=== PATIENT | male | born 1965 | race Caucasian/White ===

== ENCOUNTER 2016-12-11 19:35 | Observation (INO) | payer OTHER ==
[~2016-12-11] VITALS: Ht 182.9 cm; Wt 80.3 kg
[~2016-12-11 19:35] MED LIST: ASPI81CH CHEW; DOXE75CA2 PO; LANS30CA PO; METO25TA3 PO; PLAV75TA29 PO; ROSU1TAB8 PO; TRIA37.5 PO
[2016-12-11 20:12] VITALS: BP 131/95; PULSE 83; RESP 18; TEMP 98.7; O2SAT 96
[2016-12-11 20:36] VITALS: BP 110/91; PULSE 83; RESP 18; TEMP 98.7; O2SAT 95
[2016-12-11] MEDS ORDERED: DIAZ10TA PO (20:47)
[2016-12-11] MEDS ORDERED: ASPIRIN 81 MG CHEW TAB PO ONE (21:30)
[2016-12-11] MEDS ORDERED: SODIUM CHLORIDE 0.9% FLUSH 5 ML FLUSH IVF PRN ×3 (21:30→23:30)
--- NOTE | 2016-12-11 21:30 | PD ---
HPI Chief Complaint: Cardiac Complaint Time Seen by Provider: 21:21 Travel History International Travel<30 days: No Contact w/Intl Traveler<30days: No Traveled to known affect area: No History of Present Illness HPI 51 year-old male presents to the emergency department by private transportation in the care of his spouse for evaluation of chest pain intermittent in nature and intermittent dizziness as well as cough productive of clear to white phlegm. Patient is also noted episodes of rapid heart rate. Patient is presently in the process of being evaluated for intermittent tachycardia. Patient recently underwent EPS study and was not identified to have a tachyarrhythmia at that time and did not undergo ablation. Patient subsequently just finished a 30 day Holter monitor and on Thursday turned in his device and does not know the results of that study. Patient notified his cremator that he was having episodes of rapid heartbeat and was encouraged to come to the emergency room for evaluation. Patient has history of hypertension dyslipidemia previous pneumonia peripheral artery disease with femoral bypass to the right lower extremity 6 years ago and prior tobacco use which she discontinued 5 years ago. Patient has family history of cardiac disease with mother passing away in her 60s from myocardial infarction. Patient denies any pleuritic pain. No hemoptysis. No new swelling of the lower extremities. No lower extremity pain or claudication. Patient denies any abdominal pain. Patient does not report any referred neck jaw back shoulder arm or abdominal pain with episodes of chest pain. Chest pain episodes are seconds in duration and sharp in nature. Patient denies any chest pain at this time. Patient does take Plavix and aspirin daily. Patient denies diabetes. Patient reportedly underwent stress testing January 2016 and was told no acute abnormalities but evidence of previous remote infarct were noted at that time. states that he has had temperature elevation of 99.5 and is concerned that he may have pneumonia. Reportedly at home O2 saturations have been 90-96%. PFSH Past Medical History Narrative Medical COPD tachycardia dyslipidemia hypertension anxiety GERD pneumonia right femoropopliteal bypass EPS study; no tobacco use; nursing notes reviewed Hx Anticoagulant Therapy: Yes Anxiety: Yes Heart Rhythm Problems: Yes Cancer: No Cardiovascular Problems: Yes High Cholesterol: Yes Chest Pain: No COPD: Yes Diabetes: No Diminished Hearing: No Gastrointestinal Disorders: No GERD: Yes Glaucoma: No Hepatitis: No Hiatal Hernia: No Hypertension: Yes Respiratory: Yes Integumentary: No Thyroid Disease: No Tetanus Vaccination: < 5 Years Influenza Vaccination: Yes Past Surgical History Other Surgery: Yes (RT FEMEROL POPITEAL- AND FOR BLOCKAGE) Social History Alcohol Use: No Tobacco Use: No (QUIT 4 YRS AGO SMOKED 1 PPD FOR 20+ YRS) Substance Use: No Allergies-Medications (Allergen,Severity, Reaction): Coded Allergies: No Known Allergies (Unverified , 12/11/16) Reported Meds & Prescriptions Reported Meds & Active Scripts Active Reported Diazepam 10 Mg Tab 10 Mg PO HS PRN Metoprolol Tartrate 25 Mg Tab 12.5 Mg PO DAILY Aspirin 81 Mg Chew 81 Mg CHEW DAILY Rosuvastatin (Rosuvastatin Calcium) 20 Mg Tab 20 Mg PO DAILY Lansoprazole 30 Mg Capdr 30 Mg PO DAILY Triamterene-Hydrochlorothiazide 37.5-25 Mg Tab 1 Tab PO DAILY Plavix (Clopidogrel Bisulfate) 75 Mg Tab 75 Mg PO DAILY Doxepin (Doxepin HCl) 75 Mg Cap 75 Mg PO DAILY Review of Systems Except as stated in HPI: all other systems reviewed are Neg General / Constitutional: Positive: Fever (subjective), No: Chills Eyes: No: Visual changes HENT: No: Congestion Cardiovascular: Positive: Chest Pain or Discomfort (intermittent sharp seconds induration), Tachycardia, No: Diaphoresis, Syncope, Dyspnea on exertion, Edema Respiratory: Positive: Cough, No: Shortness of Breath, Wheezing Gastrointestinal: No: Vomiting, Abdominal Pain Genitourinary: No: Flank Pain Musculoskeletal: No: Myalgias, Arthralgias Skin: No Rash Neurologic: No: Weakness Psychiatric: Positive: Anxiety Hematologic/Lymphatic: No: Easy Bruising Physical Exam Narrative GENERAL: Well-developed well-nourished male in no acute distress no respiratory distress SKIN: Warm and dry. HEAD: Normocephalic. EYES: No scleral icterus. No injection or drainage. NECK: Supple, trachea midline. No JVD or lymphadenopathy. CARDIOVASCULAR: Regular rate and rhythm without murmurs, gallops, or rubs. RESPIRATORY: Breath sounds equal bilaterally. No accessory muscle use. GASTROINTESTINAL: Abdomen soft, non-tender, nondistended. MUSCULOSKELETAL: No cyanosis, or edema. BACK: Nontender without obvious deformity. No CVA tenderness. Data Data Last Documented VS Vital Signs Date Time Temp Pulse Resp B/P Pulse Ox O2 Delivery O2 Flow Rate FiO2 12/11/16 23:06 76 18 115/86 97 Room Air 12/11/16 20:36 98.7 Orders Electrocardiogram (12/11/16 21:21) Basic Metabolic Panel (Bmp) (12/11/16 21:21) B-Type Natriuretic Peptide (12/11/16 21:21) Ckmb (Isoenzyme) Profile (12/11/16 21:21) Complete Blood Count With Diff (12/11/16 21:21) Magnesium (Mg) (12/11/16 21:21) Prothrombin Time / Inr (Pt) (12/11/16 21:21) Act Partial Throm Time (Ptt) (12/11/16 21:21) Troponin I (12/11/16 21:21) Chest, Single Ap (12/11/16 21:21) Ecg Monitoring (12/11/16 21:21) Bilateral Bp Monitoring (12/11/16 21:21) Iv Access Insert/Monitor (12/11/16 21:21) Oximetry (12/11/16 21:21) Oxygen Administration (12/11/16 21:21) Aspirin Chew (Aspirin Chew) (12/11/16 21:30) Sodium Chloride 0.9% Flush (Ns Flush) (12/11/16 21:30) Potassium Chloride (Kcl) (12/11/16 22:15) Potassium Chlor 10 Meq Premix (Kcl 10 Me (12/11/16 22:15) D-Dimer (12/11/16 22:03) CKMB (12/11/16 20:55) CKMB% (12/11/16 20:55) Admit Order (Ed Use Only) (12/11/16 ) ^ Saline Lock (12/11/16 23:17) Resp Oxygen Amadou C Titrat 1-4 L (12/11/16 ) ^ Notify Dr: Other (12/11/16:17) Sodium Chloride 0.9% Flush (Ns Flush) (12/12/16 09:00) Sodium Chloride 0.9% Flush (Ns Flush) (12/11/16 23:30) Activity Bed Rest With Brp (12/11/16:17) Vital Signs (Adult) Q4H (12/11/16:17) Cardiac Rhythm .As Directed (12/11/16 23:17) ^ Notify Dr: Other .PRN (12/11/16 23:17) ^ Notify Dr. Parameters (12/11/16 23:17) Resp Oxygen Nasal Cannula (12/11/16 ) Ckmb (Isoenzyme) Profile (12/11/16 23:55) Ckmb (Isoenzyme) Profile (12/12/16 02:55) Troponin I (12/11/16 23:55) Troponin I (12/12/16 02:55) Electrocardiogram (12/11/16 23:55) Electrocardiogram (12/12/16 02:55) ^ Obtain (12/11/16 23:17) Sodium Chloride 0.9% Flush (Ns Flush) (12/11/16 23:30) Sodium Chloride 0.9% Flush (Ns Flush) (12/12/16 09:00) Acetaminophen (Tylenol) (12/11/16 23:30) Ondansetron Inj (Zofran Inj) (12/11/16 23:30) Nitroglycerin Sl (Nitrostat Sl) (12/11/16 23:30) Aspirin (Aspirin) (12/12/16 09:00) Alprazolam (Xanax) (12/11/16 23:30) Material Flow Analyst / Telemetry SCAR.Q8H (12/11/16:17) Basic Metabolic Panel (Bmp) (12/12/16 03:55) Labs Laboratory Tests Test 12/11/16 20:55 White Blood Count 8.8 TH/MM3 Red Blood Count 5.39 MIL/MM3 Hemoglobin 16.9 GM/DL Hematocrit 49.2 % Mean Corpuscular Volume 91.2 FL Mean Corpuscular Hemoglobin 31.4 PG Mean Corpuscular Hemoglobin 34.4 % Concent Red Cell Distribution Width 14.9 % Platelet Count 322 TH/MM3 Mean Platelet Volume 8.6 FL Neutrophils (%) (Auto) 66.6 % Lymphocytes (%) (Auto) 24.3 % Monocytes (%) (Auto) 7.3 % Eosinophils (%) (Auto) 1.2 % Basophils (%) (Auto) 0.6 % Neutrophils # (Auto) 5.9 TH/MM3 Lymphocytes # (Auto) 2.1 TH/MM3 Monocytes # (Auto) 0.6 TH/MM3 Eosinophils # (Auto) 0.1 TH/MM3 Basophils # (Auto) 0.1 TH/MM3 CBC Comment DIFF FINAL Differential Comment Prothrombin Time 10.6 SEC Prothromb Time International 1.0 RATIO Ratio Activated Partial 28.7 SEC Thromboplast Time D-Dimer Quantitative (PE/DVT) 0.34 MG/L FEU Sodium Level 139 MEQ/L Potassium Level 2.8 MEQ/L Chloride Level 98 MEQ/L Carbon Dioxide Level 30.2 MEQ/L Anion Gap 11 MEQ/L Blood Urea Nitrogen 21 MG/DL Creatinine 1.30 MG/DL Estimat Glomerular Filtration 58 ML/MIN Rate Random Glucose 99 MG/DL Calcium Level 9.1 MG/DL Magnesium Level 2.2 MG/DL Total Creatine Kinase 118 U/L Creatine Kinase MB 0.7 NG/ML Troponin I LESS THAN 0.02 NG/ML B-Type Natriuretic Peptide 3 PG/ML MDM Medical Decision Making Medical Screen Exam Complete: Yes Emergency Medical Condition: Yes Medical Record Reviewed: Yes Interpretation(s) Last Impressions Chest X-Ray 12/11/162120 Signed Impressions: Service Date/Time: December 21:35 - CONCLUSION: No evidence of acute cardiopulmonary disease. Wilmar Lou MD Vital Signs Date Time Temp Pulse Resp B/P Pulse Ox O2 Delivery O2 Flow Rate FiO2 12/11/16 21:44 84 18 125/82 95 Room Air 12/11/16 21:42 84 117/86 125/82 12/11/16 20:39 83 18 95 Room Air 12/11/16 20:36 98.7 83 18 110/91 95 12/11/16 20:12 98.7 83 18 131/95 96 CBC & BMP Diagram 12/11/16 20:55 Differential Diagnosis Chest pain, ACS, myocardial infarction, arrhythmia, electrolyte disturbance, pneumonia, PE Narrative Course Patient asymptomatic at this time placed on quality assurance monitor chassis IV access obtained specimens collected and sent for resulting presumptive aspirin 162 mg administered Critical Care Narrative Aggregate critical care time was 35 minutes. Time to perform other separately billable procedures was not included in the critical care time. My time did not include minutes spent treating any other patients simultaneously or on activities that did not directly contribute to the patient's treatment. The services I provided to this patient were to treat and/or prevent clinically significant deterioration that could result in: Arrhythmia, myocardial infarction, I provided critical care services requiring my management, as noted below: Chart data review, documentation time, medication orders and management, vital sign assessments/reviewing monitor data, ordering and reviewing lab tests, ordering and interpreting/reviewing x-rays and diagnostic studies, care of the patient and discussion of the patient with the admitting physicians. 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
[2016-12-11 21:42] VITALS: BP_SYST 117; BP_SYST 125; BP_DIAS 82; BP_DIAS 86; PULSE 84
[2016-12-11 21:42] LABS: AUTOMATED NEUTROPHIL # 5.9 TH/MM3 (1.8-7.7); BASOPHIL # 0.1 TH/MM3 (0-0.2); BASOPHIL % 0.6 % (0.0-2.0); EOSINOPHIL # 0.1 TH/MM3 (0-0.4); EOSINOPHIL % 1.2 % (0.0-4.0); HEMATOCRIT 49.2 % (39.0-51.0); HEMO FLAGS DIFF FINAL; LYMPH % 24.3 % (9.0-44.0); LYMPHOCYTE # 2.1 TH/MM3 (1.0-4.8); MEAN CELL VOLUME 91.2 FL (80.0-100.0); MEAN CORPUSCULAR HEMOGLOBIN 31.4 PG (27.0-34.0); MEAN CORPUSCULAR HGB CONC 34.4 % (32.0-36.0); MONO % 7.3 % (0.0-8.0); NEUT % 66.6 % (16.0-70.0); PLATELET COUNT 322 TH/MM3 (150-450); RED BLOOD COUNT 5.39 MIL/MM3 (4.50-5.90); RED CELL DISTRIBUTION WIDTH 14.9 % (11.6-17.2); WHITE BLOOD COUNT 8.8 TH/MM3 (4.0-11.0)
[2016-12-11 21:44] VITALS: BP 125/82; PULSE 84; RESP 18; O2SAT 95
--- NOTE | 2016-12-11 21:44 | RADHPO ---
EXAM DATE/TIME: 12/11/2016 21:35 [facility] COMPARISON: No previous studies available for comparison. INDICATIONS : Dizziness and shortness of breath today. MEDICAL HISTORY : Hypertension. Chronic obstructive pulmonary disease. SURGICAL HISTORY : None. ENCOUNTER: Initial ACUITY: 1 day PAIN SCORE: 0/10 LOCATION: Bilateral chest FINDINGS: A single view of the chest demonstrates the lungs to be symmetrically aerated without evidence of mas s, infiltrate or effusion. The cardiomediastinal contours are unremarkable. Osseous structures are intact. CONCLUSION: No evidence of acute cardiopulmonary disease. Wilmar Lou MD on December 11, 2016 at 21:42 Board Certified Radiologist. This report was verified electronically.
[2016-12-11 21:56] LABS: APTT (PATIENT) 28.7 SEC (24.3-30.1); PROTHROMBIN TIME - PATIENT 10.6 SEC (9.8-11.6)
[2016-12-11 21:58] LABS: ANION GAP 11 MEQ/L (5-15); BICARBONATE 30.2 MEQ/L (21.0-32.0); BLOOD UREA NITROGEN 21 MG/DL (7-18); CHLORIDE 98 MEQ/L (98-107); GLOMERULAR FILTRATION RATE 58 ML/MIN (>89); MAGNESIUM 2.2 MG/DL (1.5-2.5); SODIUM (NA) 139 MEQ/L (136-145)
[2016-12-11 22:03] LABS: POTASSIUM 2.8 MEQ/L (3.5-5.1)
[2016-12-11] MEDS ORDERED: POTASSIUM CHLORIDE 20 MEQ CONTROLLED RELEASE TAB PO ONE (22:15)
[2016-12-11] MEDS: POTASSIUM CHLOR 10 MEQ PREMIX 100 ML IV SCH (22:20)
[2016-12-11 22:27] LABS: CREATINE KINASE 118 U/L (39-308)
[2016-12-11 22:47] LABS: CKMB 0.7 NG/ML (0.5-3.6)
[2016-12-11 23:06] VITALS: BP 115/86; PULSE 76; RESP 18; O2SAT 97
[2016-12-11 23:30] VITALS: O2SAT 95
[2016-12-11] MEDS ORDERED: ACETAMINOPHEN 500 MG CPLT PO PRN (23:30)
[2016-12-11] MEDS ORDERED: ONDANSETRON HCL 4 MG/2 ML VIAL IV PRN (23:30)
[2016-12-11] MEDS ORDERED: NITROGLYCERIN 0.4 MG SL 25 TABS/BTL SL PRN (23:30)
[2016-12-11] MEDS ORDERED: ALPRAZolam 0.25 MG TAB PO PRN (23:30)
[2016-12-12] MEDS: POTASSIUM CHLOR 10 MEQ PREMIX 100 ML IV SCH ×2 (00:23→02:17)
[2016-12-12 01:12] LABS: CREATINE KINASE 92 U/L (39-308)
[2016-12-12 01:23] VITALS: BP 118/84; PULSE 77; RESP 18; O2SAT 97
[2016-12-12 02:59] VITALS: BP 115/77; PULSE 74; RESP 18; O2SAT 97
[2016-12-12 04:14] VITALS: BP 91/57; PULSE 77; RESP 18; O2SAT 97
[2016-12-12 04:19] LABS: CHLORIDE 102 MEQ/L (98-107); POTASSIUM 3.5 MEQ/L (3.5-5.1); SODIUM (NA) 139 MEQ/L (136-145)
[2016-12-12 04:22] LABS: ANION GAP 8 MEQ/L (5-15); BICARBONATE 29.1 MEQ/L (21.0-32.0); BLOOD UREA NITROGEN 18 MG/DL (7-18)
[2016-12-12 04:25] LABS: GLOMERULAR FILTRATION RATE 70 ML/MIN (>89)
[2016-12-12 04:50] LABS: CREATINE KINASE 97 U/L (39-308)
[2016-12-12 07:28] VITALS: O2SAT 98
[2016-12-12 07:35] VITALS: BP 119/67; PULSE 80; RESP 14; O2SAT 96
--- NOTE | 2016-12-12 08:54 | HHI.HP ---
[facility] Service [facility] Primary Care Physician Dami Price Admission Diagnosis chest pain; hypokalemia Diagnoses: (1) Tachycardia Diagnosis: Principal (2) Heart palpitations Diagnosis: Principal (3) Hypokalemia Diagnosis: Principal (4) Atypical chest pain Diagnosis: Principal Chief Complaint: elevated HR Travel History International Travel<30 Days: No Contact w/Intl Traveler <30 Da: No Traveled to Known Affected Are: No History of Present Illness 51-year-old male with history of tachycardia, hyperlipidemia, hypertension, PAD, COPD, 3 episodes of pneumonia in the past, GERD, and remote history of tobacco use is admitted chest pain center although the patient's primary complaint is elevated heart rate. The patient states the day before yesterday he was laying down after work and his heart rate went up to 130. He states he had a headache and felt little foggy and disoriented. He states he waited it out and his heart rate decreased to 120 and he took his metoprolol. He states yesterday he again had erratic pulses and his heart rate went into the 130s. He states he felt dizzy and was diaphoretic. He states the tachycardia lasted a few hours and he again took his metoprolol yesterday. He does state he had a few seconds of a little sharp pain over his left anterior chest during the episode of tachycardia/palpitations. Denies any radiation of pain to the neck/jaw/arms/back. He denies any associated numbness or tingling, abdominal pain, nausea, or vomiting. He denies having felt short of breath. Patient admits to a little shortness of breath when he is at work but states he has COPD. Denies any chest pain on exertion. Denies any orthopnea. The patient sees Dr. Dao, stock handler floorperson. He had a 24-hour Holter in September 2016 with 4 episodes of heart rate in the 150s per the patient. On 10/02/16 he underwent an EP study which was negative for any supra and ventricular and nonsustained ventricular tachyarrhythmias. The patient recently had a 30 day Holter placed and he just shipped it back on Thursday of this week prior to these episodes of tachycardia. He states he had 2 episodes of palpitations during that 30 day period. The patient additionally states that 3 days ago he started to get sick with a runny nose, nasal congestion, and cough. He states he has been producing clear mucus with his cough and states he was "vomiting" watery mucus, but it does not seem that he was actually vomiting stomach contents. He denies any diarrhea. He was found to be hypokalemic in the ED but states he has been taking potassium supplementation [id number] for the past 2 weeks. Patient has chronic swelling in the right leg due to previous femoropopliteal bypass. Review of Systems Constitutional: COMPLAINS OF: Diaphoretic episodes, Dizziness Eyes: DENIES: Blurred vision Ears, nose, mouth, throat: COMPLAINS OF: Running Nose Respiratory: COMPLAINS OF: Cough, DENIES: Shortness of breath Cardiovascular: COMPLAINS OF: Chest pain, Lower Extremity Edema (chronic), DENIES: Orthopnea Gastrointestinal: COMPLAINS OF: Vomiting (questionable), Anorexia, DENIES: Abdominal pain, Diarrhea, Nausea Genitourinary: DENIES: Dysuria Musculoskeletal: DENIES: Back pain, Neck pain Integumentary: DENIES: Rash Neurologic: COMPLAINS OF: Headache, DENIES: Paresthesias Past Family Social History Past Medical History Tachycardia Hyperlipidemia Hypertension Peripheral arterial disease COPD GERD 3 episodes of pneumonia Sleep apnea septal deviation Past Surgical History Right femoral-popliteal bypass 6 years ago. Reported Medications Diazepam 10 Mg Tab 10 Mg PO HS PRN Metoprolol Tartrate 25 Mg Tab 12.5 Mg PO TID Aspirin 81 Mg Chew 81 Mg CHEW DAILY Rosuvastatin (Rosuvastatin Calcium) 20 Mg Tab 20 Mg PO DAILY Lansoprazole 30 Mg Capdr 30 Mg PO DAILY Triamterene-Hydrochlorothiazide 37.5-25 Mg Tab 1 Tab PO DAILY Plavix (Clopidogrel Bisulfate) 75 Mg Tab 75 Mg PO DAILY Doxepin (Doxepin HCl) 75 Mg Cap 75 Mg PO DAILY Allergies: Coded Allergies: No Known Allergies (Unverified , 12/11/16) Family History Mother: of [place] at age 67. Father: Hyperlipidemia, still living. Brother: Schizophrenia. No history of heart disease. Social History Patient states he quit drinking alcohol 2 years ago. Prior to this he would drink 1-2 beers daily after work. Patient quit smoking cigarettes 6-7 years ago. Prior to this he smoked one pack per day for approximately 20 years. Denies any history of illicit drug use. Physical Exam Vital Signs Vital Signs Date Time Temp Pulse Resp B/P Pulse Ox O2 Delivery O2 Flow Rate FiO2 12/12/16 07:35 80 14 119/67 96 Room Air 12/12/16 07:28 98 21 12/12/16 04:14 77 18 91/57 97 Room Air 12/12/16 02:59 74 18 115/77 97 Room Air 12/12/16 01:23 77 18 118/84 97 Room Air 12/11/16 23:30 95 21 12/11/16 23:06 76 18 115/86 97 Room Air 12/11/16 21:44 84 18 125/82 95 Room Air 12/11/16 21:42 84 117/86 125/82 12/11/16 20:39 83 18 95 Room Air 12/11/16 20:36 98.7 83 18 110/91 95 12/11/16 20:12 98.7 83 18 131/95 96 Physical Exam GENERAL: This is a well-nourished, well-developed patient, in no apparent distress. SKIN: No rashes, ecchymoses or lesions. Warm and dry. HEAD: Atraumatic. Normocephalic. EYES: No scleral icterus. No injection or drainage. ENT: There is an abnormality of the septum to the right. Nonerythematous pharynx with no exudates or swelling. Airway patent. NECK: Trachea midline. No carotid bruits bilaterally. CARDIOVASCULAR: Normal rate and regular rhythm without murmurs, gallops, or rubs. RESPIRATORY: Clear to auscultation. Breath sounds equal bilaterally. No wheezes , rales, or rhonchi. GASTROINTESTINAL: Normoactive bowel sounds. Abdomen soft, non-tender, nondistended. No guarding. MUSCULOSKELETAL: No lower extremity edema bilaterally. NEUROLOGICAL: Awake and alert. Motor grossly within normal limits. Normal speech. Laboratory Laboratory Tests Test 12/11/16 12/12/16 12/12/16 20:55 00:37 03:55 White Blood Count 8.8 Red Blood Count 5.39 Hemoglobin 16.9 Hematocrit 49.2 Mean Corpuscular Volume 91.2 Mean Corpuscular Hemoglobin 31.4 Mean Corpuscular Hemoglobin 34.4 Concent Red Cell Distribution Width 14.9 Platelet Count 322 Mean Platelet Volume 8.6 Neutrophils (%) (Auto) 66.6 Lymphocytes (%) (Auto) 24.3 Monocytes (%) (Auto) 7.3 Eosinophils (%) (Auto) 1.2 Basophils (%) (Auto) 0.6 Neutrophils # (Auto) 5.9 Lymphocytes # (Auto) 2.1 Monocytes # (Auto) 0.6 Eosinophils # (Auto) 0.1 Basophils # (Auto) 0.1 CBC Comment DIFF FINAL Differential Comment Prothrombin Time 10.6 Prothromb Time International 1.0 Ratio Activated Partial 28.7 Thromboplast Time D-Dimer Quantitative (PE/DVT) 0.34 Sodium Level 139 139 Potassium Level 2.8 3.5 Chloride Level 98 102 Carbon Dioxide Level 30.2 29.1 Anion Gap 11 8 Blood Urea Nitrogen 21 18 Creatinine 1.30 1.10 Estimat Glomerular Filtration 58 70 Rate Random Glucose 99 91 Calcium Level 9.1 8.4 Magnesium Level 2.2 Total Creatine Kinase 118 92 97 Creatine Kinase MB 0.7 Troponin I LESS THAN 0.02 LESS THAN 0.02 LESS THAN 0.02 B-Type Natriuretic Peptide 3 Result Diagram: 12/11/16205412/12/16354 Imaging Last Impressions Chest X-Ray 12/11/162120 Signed Impressions: Service Date/Time: December 21:35 - CONCLUSION: No evidence of acute cardiopulmonary disease. Wilmar Lou MD Assessment and Plan Assessment and Plan 51-year-old male with: Tachycardia/palpitations: History of tachycardia with negative EP study in September. Sees Dr. Dao. The patient had episodes of tachycardia yesterday and the day prior lasting hours yesterday. He takes metoprolol 12.5 mg 3 times a day and took this at home. EKGs 3 personally interpreted with normal sinus rhythm. There is a partial right bundle branch block and some nonspecific T- wave inversion in aVL and the septal leads. EKG from 10/02/16 was personally interpreted and T-wave appears upright in aVL and flat in V2. Cardiac exam is normal. Likely attributed to hypokalemia. -Continue to monitor patient on telemetry. -Patient just completed a 30 day Holter but does not have the results although did have 2 episodes of palpitations during that period of time. -I put a call out to Dr. Dao although he is unavailable so covering stock handler floorperson was called, awaiting call back. If the patient requires any workup outside of chest pain center he will need to be transferred to [facility] -Continue metoprolol Hypokalemia: K+2.8-->3.5 after 40 mEq po KCl and 30 mEq IV KCl. Could be due to poor by mouth intake recently. Mg normal. -Monitor and replete as needed -Repeat BMP with K+ 3.5. Order another 40 mEq po KCl. Atypical chest pain: A few seconds of sharp left-sided chest pain during the episode of tachycardia. EKGs as above. Troponin 3 less than 0.02. Chest x- ray personally interpreted without acute disease. -Continue patient's daily 81 mg aspirin -Monitor telemetry -Nitro prn chest pain -Discussed with Dr. Bay. No need for stress test at this time HTN: BP stable. -Continue triamterene-hydrochlorothiazide as should not cause hypokalemia. HLD: Continue statin PAD: Continue Plavix GERD: Continue PPI. DVT prevention: TEDs/SCDs Update 1245: Cardiology was contacted several times over the past few hours without response. Nurse tells me that the is concerned because the patient has not eaten in the past couple of days. He did tell me earlier that he has had little appetite. Repeat BMP and mag now. Start maintenance IV normal saline at 84 mL per hour as patient is NPO. Update 1435: Still have not spoken with cardiology. I discussed this with Dr. Bay. We do not believe the patient needs a stress test. Patient will be transferred out of chest pain center. Heart healthy diet started. I have called Dr. Snider to sign out patient. Update 1515: I spoke with DrMagen Patel, [facility], about transferring care but he would like me to speak with the stock handler floorperson as the patient may be able to be discharged and not remain hospitalized. He has called the cardiology office. Update 1525: Jessica called me back and then I spoke with Lea at cards office informing her that we have been trying to reach stock handler floorperson all day. She will have Dr. Vicente call me. Update: Never heard back from cardiology. Dr. Patel to take over care of patient. Cardiology consult placed. Discussed Condition With Olga Lidia Jeff Dec 12, 2016 08:54 Ana Bay MD Dec 12, 2016 16:51
[2016-12-12] MEDS ORDERED: SODIUM CHLORIDE 0.9% FLUSH 5 ML FLUSH IVF SCH ×2 (09:00)
[2016-12-12] MEDS ORDERED: ASPIRIN 325 MG TAB PO SCH (09:00)
[2016-12-12] MEDS ORDERED: ASPIRIN 81 MG CHEW TAB CHEW SCH (10:00)
[2016-12-12] MEDS ORDERED: DOXEPIN HCL 25 MG CAP PO SCH (10:00)
[2016-12-12] MEDS ORDERED: CLOPIDOGREL 75 MG TAB PO SCH (10:00)
[2016-12-12] MEDS ORDERED: ATORVASTATIN 40 MG TAB PO SCH (10:00)
[2016-12-12] MEDS ORDERED: PANTOPRAZOLE SOD 40 MG DELAYED RELEASE TAB PO SCH (10:00)
[2016-12-12] MEDS ORDERED: METO25TA3 PO (12:36)
[2016-12-12] MEDS ORDERED: SODIUM CHLOR 0.9% 1000 ML INJ 1,000 ML IV SCH (12:45)
[2016-12-12 13:48] LABS: POTASSIUM 3.5 MEQ/L (3.5-5.1)
[2016-12-12 13:51] LABS: BICARBONATE 27.3 MEQ/L (21.0-32.0); MAGNESIUM 2.2 MG/DL (1.5-2.5)
[2016-12-12] MEDS ORDERED: POTASSIUM CHLORIDE 10 MEQ CAP PO ONE (15:45)
[2016-12-12] MEDS ORDERED: DIAZEPAM 10 MG TAB PO PRN (16:45)
[2016-12-12 17:22] VITALS: PULSE 88
--- NOTE | 2016-12-12 17:26 | HHI.PR ---
Subjective Remarks Assumed care of this patient who had been admitted to chest pain center yesterday. I have reviewed his admission H&P as well as his medical history. His cardiac enzymes and EKGs were unrevealing. And on further interview of the patient and he did not really have chest pain, it was more of palpitations with the sharp discomfort that lasted only a few seconds. He has history of palpitations and apparent SVT. He was noted to be somewhat hypokalemic on admission and apparently has had some trouble with hypokalemia as an outpatient before. He been taking some [id number]-xqloyip supplemental potassium which amounted to approximately 4 mEq per day which he self prescribed. He notes that he works outside quite often in a very physical job and has no exertional chest pain. He does have some mild underlying dyspnea which is associated with COPD. His potassium was replaced orally and the IV. He has had no more palpitations and feels well. Actually says he feels much stronger since he has had the IV fluids. He is tolerating oral intake quite well. He does complain of some recent sinus congestion but denies any fevers. I have reviewed his current EKGs and lab work. I've also discussed the case with Dr. Vicente who is covering for Dr. Dao, the pt's poultry pathologist. I be reviewed his EP study and previous EKG from September 2016. Objective Vitals Vital Signs Date Time Temp Pulse Resp B/P Pulse Ox O2 Delivery O2 Flow Rate FiO2 12/12/16 07:35 80 14 119/67 96 Room Air 12/12/16 07:28 98 21 12/12/16 04:14 77 18 91/57 97 Room Air 12/12/16 02:59 74 18 115/77 97 Room Air 12/12/16 01:23 77 18 118/84 97 Room Air 12/11/16 23:30 95 21 12/11/16 23:06 76 18 115/86 97 Room Air 12/11/16 21:44 84 18 125/82 95 Room Air 12/11/16 21:42 84 117/86 125/82 12/11/16 20:39 83 18 95 Room Air 12/11/16 20:36 98.7 83 18 110/91 95 12/11/16 20:12 98.7 83 18 131/95 96 GENERAL: No acute distress, alert and oriented, cooperative with exam. SKIN: Warm and dry. HEAD: Normocephalic. EYES: No scleral icterus. No injection or drainage. NECK: Supple, trachea midline. No JVD or lymphadenopathy. CARDIOVASCULAR: Regular rate and rhythm without murmurs, gallops, or rubs. RESPIRATORY: Breath sounds equal bilaterally. No accessory muscle use. GASTROINTESTINAL: Abdomen soft, non-tender, nondistended. Bowel sounds normal. MUSCULOSKELETAL: No cyanosis, or edema. BACK: Nontender without obvious deformity. No CVA tenderness. Result Diagram: 12/11/16205412/12/161329 Urinary Catheter: No Vascular Central Line Catheter: No A/P Problem List: (1) Tachycardia Status: Acute Plan: Seems to be a recurrent issue of possible SVT. At presentation likely associated with his recent upper respiratory illness as well as vomiting with resultant hypokalemia. Patient is feeling much better clinically, cardiac enzymes are negative and EKG with no significant acute findings. I discussed the case with Dr. Vicente who is covering for his poultry pathologist. Discharge patient home on adequate supplemental potassium. Patient will follow with his poultry pathologist next week. I've instructed the patient to return if he develops any chest pain or any significant palpitations. He will continue his Toprol. (2) Heart palpitations Status: Acute Plan: As noted above. Seems to have resolved with potassium replacement. (3) Hypokalemia Status: Acute Plan: Replaced as noted. We'll provide oral replacement prescription. (4) Atypical chest pain Status: Acute Plan: Resolved. Again this was fleeting quite sharp. Not typical for any ischemic cardiac etiology. Discharge Planning Discharge home Flynn Patel MD PhD Dec 12, 2016 17:26
[2016-12-12] MEDS ORDERED: POTA-163 PO (17:29)
[2016-12-12] MEDS ORDERED: METOPROLOL TARTRATE 25 MG TAB PO SCH (18:00)
--- NOTE | 2016-12-12 19:20 | EKG ---
Date Performed: 12/12/2016 Time Performed: 02:56:58 PTAGE: 51 years EKG: Sinus rhythm Septal T wave changes are nonspecific Borderline ECG PREVIOUS TRACING : 12/11/2016 23.43 Compared to prior tracing no significant change DOCTOR: Desitn Allred Interpretating Date/Time 12/12/2016 19:19:22
--- NOTE | 2016-12-12 19:31 | EKG ---
Date Performed: 12/11/2016 Time Performed: 23:43:38 PTAGE: 51 years EKG: Sinus rhythm Septal T wave changes are nonspecific Borderline ECG PREVIOUS TRACING : 12/11/2016 21.28 Compared to prior tracing no significant change DOCTOR: Destin Allred Interpretating Date/Time 12/12/2016 19:30:32
--- NOTE | 2016-12-12 19:39 | EKG ---
Date Performed: 12/11/2016 Time Performed: 21:28:18 PTAGE: 51 years EKG: Sinus rhythm Right bundle branch block Abnormal ECG PREVIOUS TRACING : 10/02/2016 10.55 Compared to prior tracing no significant change DOCTOR: Destin Allred Interpretating Date/Time 12/12/2016 19:37:36
[2016-12-13] MEDS ORDERED: TRIAMTERENE/HCTZ 37.5 MG/25 MG TAB PO SCH (09:00)
== END 2016-12-12 18:25 | disposition home or self-care (01) ==
LOC: PHED 19:35 → PHEDA 23:21 → PHEDH 12-12 03:21 → PH3A 12-12 09:00
PROVIDERS: ADMIT Family Medicine; ATTEND Family Medicine
DX: R00.0 Tachycardia, unspecified (principal); R07.89 Other chest pain; I45.10 Unspecified right bundle-branch block; E78.5 Hyperlipidemia, unspecified; I10 Essential (primary) hypertension; E87.6 Hypokalemia; E78.00 Pure hypercholesterolemia, unspecified; F41.9 Anxiety disorder, unspecified; J44.9 Chronic obstructive pulmonary disease, unspecified; K21.9 Gastro-esophageal reflux disease without esophagitis; Z87.01 Personal history of pneumonia (recurrent); I73.9 Peripheral vascular disease, unspecified; Z79.82 Long term (current) use of aspirin; Z79.02 Long term (current) use of antithrombotics/antiplatelets; Z87.891 Personal history of nicotine dependence; Z79.01 Long term (current) use of anticoagulants
CPT/HCPCS: 71010; 80048; 82550; 82552; 83735; 83880; 84484; 85025; 85379; 85610; 85730; 93005; 96365; 99291; G0378; J3480; J7030

== ENCOUNTER 2017-05-22 15:33 | Emergency (ER) | payer OTHER ==
[~2017-05-22 15:33] MED LIST changes: +DIAZ10TA PO; +POTA-163 PO
[2017-05-22 15:38] VITALS: BP 152/95; PULSE 111; RESP 20; TEMP 98.5; O2SAT 100
[2017-05-22] MEDS ORDERED: ONDANSETRON HCL 4 MG/2 ML VIAL IV PUSH ONE (16:00)
[2017-05-22] MEDS ORDERED: SODIUM CHLOR 0.9% 1000 ML INJ 1,000 ML IV ONE (16:00)
[2017-05-22] MEDS ORDERED: HYDROmorphone HCL PF 1 MG/ML VIAL IV PUSH ONE ×3 (16:00→17:45)
[2017-05-22 16:13] LABS: AUTOMATED NEUTROPHIL # 6.4 TH/MM3 (1.8-7.7); BASOPHIL # 0.1 TH/MM3 (0-0.2); BASOPHIL % 0.8 % (0.0-2.0); EOSINOPHIL # 0.2 TH/MM3 (0-0.4); EOSINOPHIL % 1.8 % (0.0-4.0); HEMATOCRIT 41.4 % (39.0-51.0); HEMO FLAGS DIFF FINAL; LYMPH % 22.4 % (9.0-44.0); LYMPHOCYTE # 2.2 TH/MM3 (1.0-4.8); MEAN CELL VOLUME 92.1 FL (80.0-100.0); MEAN CORPUSCULAR HEMOGLOBIN 31.8 PG (27.0-34.0); MEAN CORPUSCULAR HGB CONC 34.5 % (32.0-36.0); MONO % 8.4 % (0.0-8.0); NEUT % 66.6 % (16.0-70.0); PLATELET COUNT 327 TH/MM3 (150-450); RED BLOOD COUNT 4.49 MIL/MM3 (4.50-5.90); WHITE BLOOD COUNT 9.8 TH/MM3 (4.0-11.0)
[2017-05-22] MEDS ORDERED: METO25TA3 PO (16:18)
[2017-05-22 16:19] VITALS: BP 122/89; PULSE 97; RESP 16; O2SAT 100
[2017-05-22 16:25] LABS: POTASSIUM 3.5 MEQ/L (3.5-5.1)
[2017-05-22 16:28] LABS: BICARBONATE 25.9 MEQ/L (21.0-32.0)
[2017-05-22 16:30] LABS: APTT (PATIENT) 25.6 SEC (24.3-30.1); INTERNATIONAL NORMALIZED RATIO 0.9 RATIO; PROTHROMBIN TIME - PATIENT 10.4 SEC (9.8-11.6)
--- NOTE | 2017-05-22 16:45 | RADRPT ---
EXAM DATE/TIME: 05/22/2017 16:25 [facility] COMPARISON: CHEST SINGLE AP, December 11, 2016, 21:35. INDICATIONS : Proximal left tibia/fibula pain post fall from ladder. MEDICAL HISTORY : Hypertension. Chronic obstructive pulmonary disease SURGICAL HISTORY : None. ENCOUNTER: Initial ACUITY: 1 day PAIN SCORE: 6/10 LOCATION: Left proximal tibia/fibula FINDINGS: Two view examination of the left tibia demonstrates no evidence of fracture or dislocation. Bony min eralization is normal. The soft tissue structures are intact. CONCLUSION: 1. Negative examination. Wil Quijano MD on May 22, 2017 at 16:43 Board Certified Radiologist. This report was verified electronically.
--- NOTE | 2017-05-22 16:46 | RADRPT ---
EXAM DATE/TIME: 05/22/2017 16:28 [facility] COMPARISON: TIBIA/FIBULA LEFT (AP/LAT), May 22, 2017, 16:25. INDICATIONS : Entire left ankle pain post fall from ladder. MEDICAL HISTORY : Hypertension. Chronic obstructive pulmonary disease SURGICAL HISTORY : None. ENCOUNTER: Initial ACUITY: 1 day PAIN SCORE: 8/10 LOCATION: Left ankle FINDINGS: The ankle mortise is intact. The alignment is anatomic. There is no acute fracture or destruction les ion. No retained foreign body is present. The alignment is anatomic. CONCLUSION: 1. No acute fracture identified. Wil Quijano MD on May 22, 2017 at 16:44 Board Certified Radiologist. This report was verified electronically.
--- NOTE | 2017-05-22 16:47 | RADRPT ---
EXAM DATE/TIME: 05/22/2017 16:29 [facility] COMPARISON: ANKLE LEFT COMPLETE ([id number]), May 22, 2017, 16:28. INDICATIONS : Entire left foot pain with swelling post fall from ladder. MEDICAL HISTORY : Hypertension. Chronic obstructive pulmonary disease SURGICAL HISTORY : None. ENCOUNTER: Initial ACUITY: 1 day PAIN SCORE: 10/10 LOCATION: Left foot FINDINGS: Three view examination of the left foot demonstrates no soft tissue swelling, dislocation, or fractur e. The tarsal bones appear intact. The interphalangeal and metatarsophalangeal joints are intact. The calcaneus is intact. Bony mineralization is normal. CONCLUSION: 1. Negative examination. Wil Quijano MD on May 22, 2017 at 16:45 Board Certified Radiologist. This report was verified electronically.
[2017-05-22 16:54] VITALS: BP 136/80; PULSE 93; RESP 16; O2SAT 95
--- NOTE | 2017-05-22 17:07 | PD ---
HPI Chief Complaint: Fall Time Seen by Provider: 15:53 Travel History International Travel<30 days: No Contact w/Intl Traveler<30days: No Traveled to known affect area: No History of Present Illness HPI This 52-year-old male is complaining of pain in his left leg. He says he was about 10 feet up on a ladder and he fell off a ladder. He landed on his left leg onto the left. He's having pain in the foot and ankle and knee initially. He did not hit his head and initially did not have any back pain or hip pain. He does have a history of coronary artery disease and is on aspirin and Plavix. He says the pain is quite severe. PFSH Past Medical History Hx Anticoagulant Therapy: Yes Anxiety: Yes Depression: Yes Heart Rhythm Problems: Yes Cancer: No Cardiovascular Problems: Yes High Cholesterol: Yes Chest Pain: No COPD: Yes Diabetes: No Diminished Hearing: No Gastrointestinal Disorders: No GERD: Yes Glaucoma: No Hepatitis: No Hiatal Hernia: No Hypertension: Yes Respiratory: Yes Integumentary: No Thyroid Disease: No Past Surgical History Other Surgery: Yes (RT FEMEROL POPITEAL- AND FOR BLOCKAGE) Social History Alcohol Use: No Tobacco Use: No (QUIT 4 YRS AGO SMOKED 1 PPD FOR 20+ YRS) Substance Use: No Allergies-Medications (Allergen,Severity, Reaction): Coded Allergies: No Known Allergies (Unverified , 05/22/17) Reported Meds & Prescriptions Reported Meds & Active Scripts Active Potassium Chloride ER (Potassium Chloride) 20 Meq Tab 20 Meq PO DAILY Reported Metoprolol Tartrate 25 Mg Tab 12.5 Mg PO BID Diazepam 10 Mg Tab 10 Mg PO HS PRN Aspirin 81 Mg Chew 81 Mg CHEW DAILY Rosuvastatin (Rosuvastatin Calcium) 20 Mg Tab 20 Mg PO DAILY Lansoprazole 30 Mg Capdr 30 Mg PO DAILY Triamterene-Hydrochlorothiazide 37.5-25 Mg Tab 1 Tab PO DAILY Plavix (Clopidogrel Bisulfate) 75 Mg Tab 75 Mg PO DAILY Doxepin (Doxepin HCl) 75 Mg Cap 75 Mg PO DAILY Physical Exam Narrative GENERAL: Well-developed male SKIN: Focused skin assessment warm/dry. He has multiple ant bites on both feet HEAD: Atraumatic. Normocephalic. EYES: Pupils equal and round. No scleral icterus. No injection or drainage. ENT: No nasal bleeding or discharge. Mucous membranes pink and moist. NECK: Trachea midline. No JVD. CARDIOVASCULAR: Regular rate and rhythm. No murmur appreciated. RESPIRATORY: No accessory muscle use. Clear to auscultation. Breath sounds equal bilaterally. GASTROINTESTINAL: Abdomen soft, non-tender, nondistended. Hepatic and splenic margins not palpable. MUSCULOSKELETAL: He has swelling of the left foot and ankle. He complains of tenderness over the arch of the foot. Dorsalis pedal pulses normal. He does have some pain with palpation of the knee. There is no obvious swelling of the knee and no gross instability. Initially the hip is nontender. On returning from x-ray he is complaining of some pain in his left hip. There is some tenderness on the lateral aspect of the hip NEUROLOGICAL: Awake and alert. No obvious cranial nerve deficits. Motor grossly within normal limits. Normal speech. PSYCHIATRIC: Appropriate mood and affect; insight and judgment normal. Data Data Last Documented VS Vital Signs Date Time Temp Pulse Resp B/P Pulse Ox O2 Delivery O2 Flow Rate FiO2 05/22/17 17:44 99 16 149/92 96 05/22/17 15:38 98.5 Orders Complete Blood Count With Diff (05/22/17 15:56) Basic Metabolic Panel (Bmp) (05/22/17 15:56) Prothrombin Time / Inr (Pt) (05/22/17 15:56) Act Partial Throm Time (Ptt) (05/22/17 15:56) Urinalysis - C+S If Indicated (05/22/17 15:56) Sodium Chlor 0.9% 1000 Ml Inj (Ns 1000 M (05/22/17 16:00) Ondansetron Inj (Zofran Inj) (05/22/17 16:00) Hydromorphone Pf Inj (Dilaudid Pf Inj) (05/22/17 16:00) Ankle, Complete ([id number]) (05/22/17 15:56) Foot, Complete ([id number]) (05/22/17 15:56) Tibia/Fibula (Ap/Lat) (05/22/17 15:56) Hydromorphone Pf Inj (Dilaudid Pf Inj) (05/22/17 16:45) Ct Foot W/O Contrast (05/22/17 ) Hip, Uni(Ap&Lat) W Ap Pelvis (05/22/17 17:02) Hydromorphone Pf Inj (Dilaudid Pf Inj) (05/22/17 17:45) Splint Or Brace Apply/Monitor (05/22/17 17:37) Crutches (05/22/17 17:37) Labs Laboratory Tests Test 05/22/17 16:00 White Blood Count 9.8 TH/MM3 Red Blood Count 4.49 MIL/MM3 Hemoglobin 14.3 GM/DL Hematocrit 41.4 % Mean Corpuscular Volume 92.1 FL Mean Corpuscular Hemoglobin 31.8 PG Mean Corpuscular Hemoglobin 34.5 % Concent Red Cell Distribution Width 14.0 % Platelet Count 327 TH/MM3 Mean Platelet Volume 8.1 FL Neutrophils (%) (Auto) 66.6 % Lymphocytes (%) (Auto) 22.4 % Monocytes (%) (Auto) 8.4 % Eosinophils (%) (Auto) 1.8 % Basophils (%) (Auto) 0.8 % Neutrophils # (Auto) 6.4 TH/MM3 Lymphocytes # (Auto) 2.2 TH/MM3 Monocytes # (Auto) 0.8 TH/MM3 Eosinophils # (Auto) 0.2 TH/MM3 Basophils # (Auto) 0.1 TH/MM3 CBC Comment DIFF FINAL Differential Comment Prothrombin Time 10.4 SEC Prothromb Time International 0.9 RATIO Ratio Activated Partial 25.6 SEC Thromboplast Time Sodium Level 138 MEQ/L Potassium Level 3.5 MEQ/L Chloride Level 104 MEQ/L Carbon Dioxide Level 25.9 MEQ/L Anion Gap 8 MEQ/L Blood Urea Nitrogen 14 MG/DL Creatinine 1.70 MG/DL Estimat Glomerular Filtration 42 ML/MIN Rate Random Glucose 77 MG/DL Calcium Level 9.7 MG/DL [facility] Medical Decision Making Medical Screen Exam Complete: Yes Emergency Medical Condition: Yes Medical Record Reviewed: Yes Differential Diagnosis Differential includes contusion of the ankle, contusions, fractured ankle fracture foot factor tibia Narrative Course X-ray of the tibia ankle and foot have been read as negative. I did add an x- ray of the hip is complaining of pain Like this. He continues to complain of pain in the foot and he does have swelling over the dorsum of the foot. I have ordered a CT to assess for possible occult fracture. The x-rays is read as showing a mildly comminuted fracture at the base of the second metatarsal. There is also question of fracture of the cuboid which may not be acute on the patient does have some tenderness over this area. Patient has been placed in a long-leg splint. He is put on crutches. He is to follow-up with orthopedics or podiatry. No weightbearing, ice Diagnosis Primary Impression: Fracture, foot Qualified Code: S92.902A - Closed fracture of left foot, initial encounter Additional Instructions: No weightbearing, keep foot elevated, apply ice Med/Other Pt SpecificInfo: No Change to Meds Scripts Hydrocodone-Acetaminophen (Lortab)10-325 Mg Tab1 Tab PO Q4H PRN (PAIN) #30 TAB Ref 0 Prov:Alex Moffett MD 05/22/17 Disposition: 01 DISCHARGE HOME Condition: Stable Alex Moffett MD May 22, 2017 17:07
--- NOTE | 2017-05-22 17:30 | RADRPT ---
EXAM DATE/TIME: 05/22/2017 17:10 [facility] COMPARISON: FOOT LEFT COMPLETE ([id number]), May 22, 2017, 16:29. INDICATIONS : Left hip pain post fall from ladder. MEDICAL HISTORY : Hypertension. Chronic obstructive pulmonary disease SURGICAL HISTORY : None. ENCOUNTER: Initial ACUITY: 1 day PAIN SCORE: 5/10 LOCATION: Left pelvis FINDINGS: The left femoral head is well situated within the acetabular fossa. The bony mineralization is within normal limits. No acute fractures identified. The remaining portions of the pelvis visualized are intact. CONCLUSION: 1. No acute fracture identified. Wil Quijano MD on May 22, 2017 at 17:27 Board Certified Radiologist. This report was verified electronically.
[2017-05-22 17:44] VITALS: BP 149/92; PULSE 99; RESP 16; O2SAT 96
--- NOTE | 2017-05-22 18:06 | RADRPT ---
EXAM DATE/TIME: 05/22/2017 17:26 [facility] COMPARISON: FOOT LEFT COMPLETE ([id number]), May 22, 2017, 16:29. INDICATIONS : Left foot pain post fall. Swelling. RADIATION DOSE: 6.09 CTDIvol (mGy) MEDICAL HISTORY : Hypertension. Chronic obstructive pulmonary disease. SURGICAL HISTORY : None. ENCOUNTER: Initial ACUITY: 1 day PAIN SCALE: 10/10 LOCATION: Left Foot. Metatarsals. TECHNIQUE: Volumetric scanning of the foot was performed. Using automated exposure control and adjustment of th e mA and/or kV according to patient size, radiation dose was kept as low as reasonably achievable to obtain optimal diagnostic quality images. DICOM format image data is available electronically for re view and comparison. FINDINGS: There is a mildly comminuted fracture of the base of the second metatarsal. Main fracture line is obl ique and essentially nondisplaced. A few tiny minimally displaced fracture fragments are seen of the plantar corner of the base of the bone. Focal fragmentation seen dorsal, distal corner of the cuboid that I believe is nonacute but please co rrelate clinically for focal tenderness to palpation. No other fractures are demonstrated. There no subluxations. CONCLUSION: 1. Mildly comminuted fracture with minimal to mild displacement of the base of the second metatarsal. 2. Focal minimally displaced fragmentation distally the cuboid, probably nonacute. Wilmar Lou MD on May 22, 2017 at 18:00 Board Certified Radiologist. This report was verified electronically.
[2017-05-22] MEDS ORDERED: HYDR-3535 PO (18:12)
== END 2017-05-22 18:25 | disposition home or self-care (01) ==
LOC: PHED 15:33
DX: S92.902A Unspecified fracture of left foot, initial encounter for closed fracture (principal); I10 Essential (primary) hypertension; E78.00 Pure hypercholesterolemia, unspecified; Z79.01 Long term (current) use of anticoagulants; Z86.59 Personal history of other mental and behavioral disorders; Z86.79 Personal history of other diseases of the circulatory system; Z87.09 Personal history of other diseases of the respiratory system; Z87.19 Personal history of other diseases of the digestive system; Z87.891 Personal history of nicotine dependence; W11.XXXA Fall on and from ladder, initial encounter
CPT/HCPCS: 29505; 73502; 73590; 73610; 73630; 73700; 80048; 85025; 85610; 85730; 96361; 96374; 96375; 96376; 99285; E0113; J1170; J2405; J7030

== ENCOUNTER 2017-10-28 17:19 | Emergency (ER) | payer OTHER ==
[~2017-10-28] VITALS: Ht 182.9 cm; Wt 80.0 kg
[~2017-10-28 17:19] MED LIST changes: +ASPI-516 CHEW; -ASPI81CH CHEW; +HYDR-3535 PO
[2017-10-28 17:32] VITALS: BP 156/92; PULSE 84; RESP 16; TEMP 98.4; O2SAT 100
[2017-10-28] MEDS ORDERED: SODIUM CHLOR 0.9% 1000 ML INJ 1,000 ML IV SCH (18:23)
[2017-10-28] MEDS ORDERED: ONDANSETRON HCL 4 MG/2 ML VIAL ONE (18:25)
[2017-10-28] MEDS ORDERED: SODIUM CHLORIDE 0.9% FLUSH 10 ML FLUSH IV FLUSH PRN (18:30)
[2017-10-28] MEDS ORDERED: FAMOTIDINE 20 MG/2 ML VIAL IV PUSH ONE (18:30)
[2017-10-28] MEDS ORDERED: ONDANSETRON HCL 4 MG/2 ML VIAL IVP ONE (18:30)
[2017-10-28 18:37] LABS: AUTOMATED NEUTROPHIL # 11.9 TH/MM3 (1.8-7.7); BASOPHIL % 0.3 % (0.0-2.0); EOSINOPHIL # 0.1 TH/MM3 (0-0.4); EOSINOPHIL % 0.9 % (0.0-4.0); HEMATOCRIT 51.1 % (39.0-51.0); HEMOGLOBIN 16.8 GM/DL (13.0-17.0); LYMPH % 9.7 % (9.0-44.0); LYMPHOCYTE # 1.3 TH/MM3 (1.0-4.8); MEAN CELL VOLUME 91.1 FL (80.0-100.0); MEAN CORPUSCULAR HGB CONC 32.9 % (32.0-36.0); MEAN PLATELET VOLUME 8.9 FL (7.0-11.0); MONO % 3.2 % (0.0-8.0); MONOCYTE # 0.4 TH/MM3 (0-0.9); NEUT % 85.9 % (16.0-70.0); PLATELET COUNT 296 TH/MM3 (150-450); RED BLOOD COUNT 5.61 MIL/MM3 (4.50-5.90); RED CELL DISTRIBUTION WIDTH 13.7 % (11.6-17.2); WHITE BLOOD COUNT 13.7 TH/MM3 (4.0-11.0)
[2017-10-28 18:39] VITALS: BP 152/87; PULSE 73; RESP 19; TEMP 99; O2SAT 100
[2017-10-28 18:45] LABS: CHLORIDE 101 MEQ/L (98-107); SODIUM (NA) 136 MEQ/L (136-145)
[2017-10-28 18:48] LABS: GLUCOSE,RANDOM 138 MG/DL (74-106)
[2017-10-28 18:49] LABS: ALBUMIN 4.5 GM/DL (3.4-5.0); BICARBONATE 23.3 MEQ/L (21.0-32.0); BLOOD UREA NITROGEN 16 MG/DL (7-18); CALCIUM 10.1 MG/DL (8.5-10.1); LIPASE 107 U/L (73-393)
[2017-10-28 18:52] LABS: ALT (GPT) 93 U/L (12-78); AST (GOT) 42 U/L (15-37); GLOMERULAR FILTRATION RATE 53 ML/MIN (>89)
--- NOTE | 2017-10-28 18:53 | PD ---
HPI Chief Complaint: GI Complaint Time Seen by Provider: 18:23 Travel History International Travel<30 days: No Contact w/Intl Traveler<30days: No Traveled to known affect area: No History of Present Illness HPI 52-year-old male complains of abdominal pain with nausea vomiting. Patient states the symptoms started this morning. Patient has history of recurrent abdominal pain nausea vomiting in the past. Patient states he was admitted to the hospital in the past. Patient states that he had GI workup including upper and lower GI endoscopy in the past without clear etiology of recurrent abdominal pain nausea vomiting. Patient has been taking Zofran as needed in the past for nausea vomiting. Patient took Zofran today without much relief. Patient denies any headache. Patient denies any chest pain or shortness of breath. Patient denies any blood or mucus in the stool. Patient denies any dysuria or frequency. Patient states the pain cramping pain diffuse over the abdomen. Patient denies any pain radiation. On a scale of 1-10 the pain is a 4. Patient has history of hypokalemia in the past. PFSH Past Medical History Hx Anticoagulant Therapy: Yes (ELIQUIS) Anxiety: Yes Depression: Yes Heart Rhythm Problems: Yes Cancer: No Cardiovascular Problems: Yes (HTN, CHOL, ABLATION, BYPASS, A. FIB) High Cholesterol: Yes Chest Pain: No COPD: Yes Diabetes: No Diminished Hearing: No Gastrointestinal Disorders: No GERD: Yes Glaucoma: No Hepatitis: No Hiatal Hernia: No Hypertension: Yes Respiratory: Yes Integumentary: No Thyroid Disease: No Influenza Vaccination: No ?: Not Past Surgical History Other Surgery: Yes (RT FEMEROL POPITEAL- AND FOR BLOCKAGE) Social History Alcohol Use: Yes (WEEKENDS) Tobacco Use: No (2 CIGS PER DAY) Substance Use: No Allergies-Medications (Allergen,Severity, Reaction): Coded Allergies: No Known Allergies (Unverified Adverse Reaction, Unknown, 10/28/17) Reported Meds & Prescriptions Reported Meds & Active Scripts Active Potassium Chloride ER (Potassium Chloride) 20 Meq Tab 20 Meq PO DAILY Reported Metoprolol Tartrate 25 Mg Tab 12.5 Mg PO BID Rosuvastatin (Rosuvastatin Calcium) 20 Mg Tab 20 Mg PO DAILY Lansoprazole 30 Mg Capdr 30 Mg PO DAILY Triamterene-Hydrochlorothiazide 37.5-25 Mg Tab 1 Tab PO DAILY Doxepin (Doxepin HCl) 75 Mg Cap 75 Mg PO DAILY Review of Systems General / Constitutional: No: Fever Eyes: No: Visual changes HENT: No: Headaches Cardiovascular: No: Chest Pain or Discomfort Respiratory: No: Shortness of Breath Gastrointestinal: Positive: Nausea, Vomiting, Abdominal Pain Genitourinary: No: Dysuria Musculoskeletal: No: Pain Skin: No Rash Neurologic: No: Weakness Psychiatric: No: Depression Endocrine: No: Polydipsia Hematologic/Lymphatic: No: Easy Bruising Physical Exam Narrative GENERAL: Well-nourished, well-developed patient. SKIN: Focused skin assessment warm/dry. HEAD: Normocephalic. EYES: No scleral icterus. No injection or drainage. NECK: Supple, trachea midline. No JVD or lymphadenopathy. CARDIOVASCULAR: Regular rate and rhythm without murmurs, gallops, or rubs. RESPIRATORY: Breath sounds equal bilaterally. No accessory muscle use. GASTROINTESTINAL: Abdomen soft, nondistended. Patient has mild diffuse tenderness over the abdomen. No rebound tenderness. No mass. MUSCULOSKELETAL: No cyanosis, or edema. BACK: Nontender without obvious deformity. No CVA tenderness. Neurologic exam normal. Data Data Last Documented VS Vital Signs Date Time Temp Pulse Resp B/P (MAP) Pulse Ox O2 Delivery O2 Flow Rate FiO2 10/28/17 18:39 99.0 73 19 152/87 (108) 100 Room Air Orders Orders Complete Blood Count With Diff (10/28/17 18:23) Comprehensive Metabolic Panel (10/28/17 18:23) Lipase (10/28/17 18:23) Urinalysis - C+S If Indicated (10/28/17 18:23) Iv Access Insert/Monitor (10/28/17 18:23) Ecg Monitoring (10/28/17 18:23) Oximetry (10/28/17 18:23) Ondansetron Inj (Zofran Inj) (10/28/17 18:30) Sodium Chlor 0.9% 1000 Ml Inj (Ns 1000 M (10/28/17 18:23) Sodium Chloride 0.9% Flush (Ns Flush) (10/28/17 18:30) Famotidine Inj (Pepcid Inj) (10/28/17 18:30) Ondansetron Inj (Zofran Inj) (1/24/18 18:25) Metoclopramide Inj (Reglan Inj) (10/28/17 19:00) Diphenhydramine Inj (Benadryl Inj) (10/28/17 19:00) Labs Laboratory Tests Test 10/28/17 18:30 White Blood Count 13.7 TH/MM3 Red Blood Count 5.61 MIL/MM3 Hemoglobin 16.8 GM/DL Hematocrit 51.1 % Mean Corpuscular Volume 91.1 FL Mean Corpuscular Hemoglobin 30.0 PG Mean Corpuscular Hemoglobin Concent 32.9 % Red Cell Distribution Width 13.7 % Platelet Count 296 TH/MM3 Mean Platelet Volume 8.9 FL Neutrophils (%) (Auto) 85.9 % Lymphocytes (%) (Auto) 9.7 % Monocytes (%) (Auto) 3.2 % Eosinophils (%) (Auto) 0.9 % Basophils (%) (Auto) 0.3 % Neutrophils # (Auto) 11.9 TH/MM3 Lymphocytes # (Auto) 1.3 TH/MM3 Monocytes # (Auto) 0.4 TH/MM3 Eosinophils # (Auto) 0.1 TH/MM3 Basophils # (Auto) 0.0 TH/MM3 CBC Comment DIFF FINAL Differential Comment Blood Urea Nitrogen 16 MG/DL Random Glucose 138 MG/DL Albumin 4.5 GM/DL Calcium Level 10.1 MG/DL Sodium Level 136 MEQ/L Potassium Level 3.6 MEQ/L Chloride Level 101 MEQ/L Carbon Dioxide Level 23.3 MEQ/L Anion Gap 12 MEQ/L Lipase 107 U/L MDM Medical Decision Making Medical Screen Exam Complete: Yes Emergency Medical Condition: Yes Differential Diagnosis Differential diagnosis including gastroenteritis, cyclical nausea vomiting, gastroparesis, dehydration, electrolytic imbalance. Narrative Course 52-year-old male with abdominal pain nausea vomiting. History of recurrent symptoms in the past. Patient had workup with GI in the past. Normal saline solution 1 L IV bolus. Pepcid 20 g IV. Zofran 4 mg IV. Reglan 10 mg IV. Benadryl 25 mg IV. Riki Jhaveri MD Oct 28, 2017 18:53
[2017-10-28 18:54] LABS: TOTAL PROTEIN 8.6 GM/DL (6.4-8.2)
[2017-10-28 18:55] LABS: ALKALINE PHOSPHATASE 88 U/L (45-117)
[2017-10-28] MEDS ORDERED: METOCLOPRAMIDE HCL 10 MG/2 ML VIAL IV PUSH ONE (19:00)
[2017-10-28] MEDS ORDERED: diphenhydrAMINE HCL 50 MG/ML VIAL IV PUSH ONE (19:00)
[2017-10-28 19:29] LABS: BILIRUBIN, URINE NEG (NEG); BLOOD, URINE NEG (NEG); GLUCOSE,URINE NEG (NEG); KETONE, URINE 15 mg/dL (NEG); NITRITE,URINE NEG (NEG); URINE LEUKOCYTE ESTERASE NEG (NEG)
[2017-10-28 19:33] LABS: URINE COLOR YELLOW (YELLW/STRAW)
[2017-10-28 19:34] LABS: SQUAMOUS EPITHELIAL CELL URINE 0-5 /hpf (0-5); WBC, URINE 0-2 /hpf (0-5)
[2017-10-28 19:44] VITALS: BP 146/85; PULSE 84; RESP 18; TEMP 99; O2SAT 97
[2017-10-28] MEDS ORDERED: SODIUM CHLOR 0.9% 1000 ML INJ 1,000 ML IV ONE (20:15)
[2017-10-28] MEDS ORDERED: ONDANSETRON HCL 4 MG/2 ML VIAL IV PUSH ONE (20:30)
--- NOTE | 2017-10-28 20:45 | PD ---
Physical Exam Date Seen by Provider: Oct 28, 2017 Time Seen by Provider: 20:00 Narrative Patient is feeling much better repeat physical exam he has no abdominal pain no right upper quadrant pain no epigastric pain no lower quadrant tenderness 2 L of fluid Reglan Zofran Benadryl patient is feeling much improved minimal elevation of LFTs most likely secondary to vomiting bilirubin is negative. He has n negative Coombs's we'll discharge with a prescription for Zofran and Pepcid Protonix follow-up as an outpatient Data Data Last Documented VS Vital Signs Date Time Temp Pulse Resp B/P (MAP) Pulse Ox O2 Delivery O2 Flow Rate FiO2 10/28/17 21:00 83 18 154/84 (107) 98 10/28/17 19:44 99.0 Room Air Orders Orders Complete Blood Count With Diff (10/28/17 18:23) Comprehensive Metabolic Panel (10/28/17 18:23) Lipase (10/28/17 18:23) Urinalysis - C+S If Indicated (10/28/17 18:23) Iv Access Insert/Monitor (10/28/17 18:23) Ecg Monitoring (10/28/17 18:23) Oximetry (10/28/17 18:23) Ondansetron Inj (Zofran Inj) (10/28/17 18:30) Sodium Chlor 0.9% 1000 Ml Inj (Ns 1000 M (10/28/17 18:23) Sodium Chloride 0.9% Flush (Ns Flush) (10/28/17 18:30) Famotidine Inj (Pepcid Inj) (10/28/17 18:30) Ondansetron Inj (Zofran Inj) (10/28/17 18:25) Metoclopramide Inj (Reglan Inj) (10/28/17 19:00) Diphenhydramine Inj (Benadryl Inj) (10/28/17 19:00) Sodium Chlor 0.9% 1000 Ml Inj (Ns 1000 M (10/28/17 20:15) Ondansetron Inj (Zofran Inj) (10/28/17 20:30) Ed Discharge Order (10/28/17 21:02) Labs Laboratory Tests Test 10/28/17 18:30 10/28/17 19:20 White Blood Count 13.7 TH/MM3 Red Blood Count 5.61 MIL/MM3 Hemoglobin 16.8 GM/DL Hematocrit 51.1 % Mean Corpuscular Volume 91.1 FL Mean Corpuscular Hemoglobin 30.0 PG Mean Corpuscular Hemoglobin Concent 32.9 % Red Cell Distribution Width 13.7 % Platelet Count 296 TH/MM3 Mean Platelet Volume 8.9 FL Neutrophils (%) (Auto) 85.9 % Lymphocytes (%) (Auto) 9.7 % Monocytes (%) (Auto) 3.2 % Eosinophils (%) (Auto) 0.9 % Basophils (%) (Auto) 0.3 % Neutrophils # (Auto) 11.9 TH/MM3 Lymphocytes # (Auto) 1.3 TH/MM3 Monocytes # (Auto) 0.4 TH/MM3 Eosinophils # (Auto) 0.1 TH/MM3 Basophils # (Auto) 0.0 TH/MM3 CBC Comment DIFF FINAL Differential Comment Blood Urea Nitrogen 16 MG/DL Creatinine 1.40 MG/DL Random Glucose 138 MG/DL Total Protein 8.6 GM/DL Albumin 4.5 GM/DL Calcium Level 10.1 MG/DL Alkaline Phosphatase 88 U/L Aspartate Amino Transf (AST/SGOT) 42 U/L Alanine Aminotransferase (ALT/SGPT) 93 U/L Total Bilirubin 1.0 MG/DL Sodium Level 136 MEQ/L Potassium Level 3.6 MEQ/L Chloride Level 101 MEQ/L Carbon Dioxide Level 23.3 MEQ/L Anion Gap 12 MEQ/L Estimat Glomerular Filtration Rate 53 ML/MIN Lipase 107 U/L Urine Color YELLOW Urine Turbidity CLEAR Urine pH 8.0 Urine Specific Buckley 1.016 Urine Protein 30 mg/dL Urine Glucose (UA) NEG mg/dL Urine Ketones 15 mg/dL Urine Occult Blood NEG Urine Nitrite NEG Urine Bilirubin NEG Urine Leukocyte Esterase NEG Urine WBC 0-2 /hpf Urine Squamous Epithelial Cells 0-5 /hpf Microscopic Urinalysis Comment CULT NOT INDICATED MDM Medical Record Reviewed: Yes Supervised Visit with BISI: No Diagnosis Primary Impression: Vomiting Qualified Codes: G43.A0 - Cyclical vomiting, not intractable Patient Instructions: Acute Nausea and Vomiting (ED), General Instructions Scripts Promethazine Supp (Phenergan Supp) 25 Mg Supp 25 MG RECTAL Q6H Y for NAUSEA OR VOMITING, #10 SUPP 0 Refills Prov: Thomas Herbert MD 10/28/17 Promethazine (Phenergan) 25 Mg Tablet 25 MG PO Q6H Y for NAUSEA OR VOMITING, #15 TAB 0 Refills Prov: Thomas Herbert MD 10/28/17 Sucralfate Liq (Sucralfate Liq) 1 Gram/10 Ml Nerissa 1 GM PO TID for Duodenal ulcer, #200 ML 0 Refills on empty stomach Prov: Thomas Herbert MD 10/28/17 Pantoprazole (Protonix) 40 Mg Tab 40 MG PO DAILY for Reflux, #30 TAB 0 Refills Prov: Thomas Herbert MD 10/28/17 Dicyclomine (Bentyl) 10 Mg Cap 10 MG PO TID Y for Bowel Management, #10 CAP 0 Refills Prov: Thomas Herbert MD 10/28/17 Ondansetron Odt (Zofran Odt) 4 Mg Tab 4 MG SL Q6HR Y for Nausea/Vomiting, #12 TAB 0 Refills Prov: Thomas Herbert MD 10/28/17 Disposition: 01 DISCHARGE HOME Condition: Good Thomas Herbert MD Oct 28, 2017 20:45
[2017-10-28] MEDS ORDERED: DICY10 PO (20:46)
[2017-10-28] MEDS ORDERED: ZOFR4TAB3 SL (20:46)
[2017-10-28] MEDS ORDERED: SUCR1S PO (20:47)
[2017-10-28] MEDS ORDERED: PROT40TA PO (20:47)
[2017-10-28 21:00] VITALS: BP 154/84
[2017-10-28] MEDS ORDERED: PROM1SUP7 RECTAL (21:06)
[2017-10-28] MEDS ORDERED: PROM25TA10 PO (21:06)
== END 2017-10-28 21:10 | disposition home or self-care (01) ==
LOC: PHED 17:19
DX: G43.A0 Cyclical vomiting, in migraine, not intractable (principal); F32.9 Major depressive disorder, single episode, unspecified; E78.00 Pure hypercholesterolemia, unspecified; I10 Essential (primary) hypertension; I48.91 Unspecified atrial fibrillation; J44.9 Chronic obstructive pulmonary disease, unspecified; K21.9 Gastro-esophageal reflux disease without esophagitis; F17.200 Nicotine dependence, unspecified, uncomplicated; Z79.01 Long term (current) use of anticoagulants
CPT/HCPCS: 80053; 81001; 83690; 85025; 96361; 96374; 96375; 99284; J1200; J2405; J2765; J7030

== ENCOUNTER 2017-10-30 16:50 | Emergency (ER) | payer OTHER ==
[~2017-10-30] VITALS: Ht 182.9 cm; Wt 79.0 kg
[~2017-10-30 16:50] MED LIST changes: -ASPI-516 CHEW; -DIAZ10TA PO; +DICY10 PO; -HYDR-3535 PO; -PLAV75TA29 PO; +PROM1SUP7 RECTAL; +PROM25TA10 PO; +PROT40TA PO; +SUCR1S PO; +ZOFR4TAB3 SL
[2017-10-30 17:09] VITALS: BP 175/101; PULSE 96; RESP 18; TEMP 99.3; O2SAT 99
--- NOTE | 2017-10-30 17:40 | PD ---
HPI Chief Complaint: GI Complaint Time Seen by Provider: 17:23 Travel History International Travel<30 days: No Contact w/Intl Traveler<30days: No Traveled to known affect area: No History of Present Illness HPI This patient complains of nausea and vomiting. Patient has recurrent vomiting problems. He says once per year for the last 5 or 6 years he has had spells of this. They eventually resolved. No one is ever been able to find a cause. He' s been hospitalized and had extensive GI workups. He was here 2 days ago for the same thing. He had normal lab studies and got hydrated. He comes back today not feeling better. Denies diarrhea or fever. Not having abdominal pain but feels nauseous. Denies alcohol abuse. He does smoke marijuana on occasion. Duration of problems 6 years. No alleviating factors. No exacerbating factors. Severity of symptoms is moderate PFSH Past Medical History Hx Anticoagulant Therapy: Yes (ELIQUIS) Anxiety: Yes Depression: Yes Heart Rhythm Problems: Yes Cancer: No Cardiovascular Problems: Yes (HTN, CHOL, ABLATION, BYPASS, A. FIB) High Cholesterol: Yes Chest Pain: No COPD: Yes Diabetes: No Diminished Hearing: No Gastrointestinal Disorders: No GERD: Yes Glaucoma: No Hepatitis: No Hiatal Hernia: No Hypertension: Yes Respiratory: Yes Integumentary: No Thyroid Disease: No Past Surgical History Other Surgery: Yes (RT FEMEROL POPITEAL- AND FOR BLOCKAGE) Social History Alcohol Use: Yes (WEEKENDS) Tobacco Use: No (2 CIGS PER DAY) Substance Use: No Allergies-Medications (Allergen,Severity, Reaction): Coded Allergies: No Known Allergies (Unverified Adverse Reaction, Unknown, 10/30/17) Reported Meds & Prescriptions Reported Meds & Active Scripts Active Prochlorperazine Supp (Prochlorperazine) 25 Mg Supp 25 Mg RECTAL Q6H PRN Phenergan Supp (Promethazine HCl) 25 Mg Supp 25 Mg RECTAL Q6H PRN Phenergan (Promethazine HCl) 25 Mg Tablet 25 Mg PO Q6H PRN Sucralfate Liq (Sucralfate) 1 Gram/10 Ml Nerissa 1 Gm PO TID on empty stomach Protonix (Pantoprazole Sodium) 40 Mg Tab 40 Mg PO DAILY Bentyl (Dicyclomine HCl) 10 Mg Cap 10 Mg PO TID PRN Zofran Odt (Ondansetron Odt) 4 Mg Tab 4 Mg SL Q6HR PRN Potassium Chloride ER (Potassium Chloride) 20 Meq Tab 20 Meq PO DAILY Reported Metoprolol Tartrate 25 Mg Tab 12.5 Mg PO BID Rosuvastatin (Rosuvastatin Calcium) 20 Mg Tab 20 Mg PO DAILY Lansoprazole 30 Mg Capdr 30 Mg PO DAILY Triamterene-Hydrochlorothiazide 37.5-25 Mg Tab 1 Tab PO DAILY Doxepin (Doxepin HCl) 75 Mg Cap 75 Mg PO DAILY Review of Systems General / Constitutional: No: Fever Eyes: No: Visual changes HENT: No: Headaches Cardiovascular: No: Chest Pain or Discomfort Respiratory: No: Shortness of Breath Gastrointestinal: Positive: Nausea, Vomiting, No: Abdominal Pain Genitourinary: No: Dysuria Musculoskeletal: No: Pain Skin: No Rash Neurologic: No: Weakness Psychiatric: No: Depression Endocrine: No: Polydipsia Hematologic/Lymphatic: No: Easy Bruising Physical Exam Narrative GENERAL: Well-nourished, well-developed patient in no apparent distress. SKIN: Focused skin assessment reveals no rash and nodules. Skin is Warm and dry. HEAD: Atraumatic. Normocephalic. EYES: Pupils equal and round. No scleral icterus. No injection or drainage. ENT: No nasal bleeding or discharge. Mucous membranes pink and moist. NECK: Trachea midline. No JVD. CARDIOVASCULAR: Regular rate and rhythm. No murmur appreciated. RESPIRATORY: No accessory muscle use. Clear to auscultation. Breath sounds equal bilaterally. GASTROINTESTINAL: Abdomen soft, non-tender, nondistended. Hepatic and splenic margins not palpable. MUSCULOSKELETAL: No obvious deformities. No clubbing. No cyanosis. No edema. NEUROLOGICAL: Awake and alert. No obvious cranial nerve deficits. Motor grossly within normal limits. Normal speech. PSYCHIATRIC: Appropriate mood and affect; insight and judgment normal. Data Data Last Documented VS Vital Signs Date Time Temp Pulse Resp B/P (MAP) Pulse Ox O2 Delivery O2 Flow Rate FiO2 10/30/17 18:25 89 16 178/95 (122) 96 Room Air 10/30/17 17:09 99.3 Orders Orders Sodium Chlor 0.9% 1000 Ml Inj (Ns 1000 M (10/30/17 17:45) Ondansetron Inj (Zofran Inj) (10/30/17 17:45) Promethazine Inj (Phenergan Inj) (10/30/17 17:45) Iv Access Insert/Monitor (10/30/17 17:32) Complete Blood Count With Diff (10/30/17 17:32) Comprehensive Metabolic Panel (10/30/17 17:32) Abdomen, Flat & Upright (10/30/17 ) Prochlorperazine Inj (Compazine Inj) (10/30/17 17:45) Labs Laboratory Tests Test 10/30/17 17:40 White Blood Count 13.0 TH/MM3 Red Blood Count 5.66 MIL/MM3 Hemoglobin 17.2 GM/DL Hematocrit 51.0 % Mean Corpuscular Volume 90.1 FL Mean Corpuscular Hemoglobin 30.5 PG Mean Corpuscular Hemoglobin Concent 33.8 % Red Cell Distribution Width 13.8 % Platelet Count 282 TH/MM3 Mean Platelet Volume 8.8 FL Neutrophils (%) (Auto) 88.3 % Lymphocytes (%) (Auto) 9.1 % Monocytes (%) (Auto) 2.3 % Eosinophils (%) (Auto) 0.1 % Basophils (%) (Auto) 0.2 % Neutrophils # (Auto) 11.5 TH/MM3 Lymphocytes # (Auto) 1.2 TH/MM3 Monocytes # (Auto) 0.3 TH/MM3 Eosinophils # (Auto) 0.0 TH/MM3 Basophils # (Auto) 0.0 TH/MM3 CBC Comment DIFF FINAL Differential Comment Blood Urea Nitrogen 20 MG/DL Creatinine 1.40 MG/DL Random Glucose 137 MG/DL Total Protein 8.9 GM/DL Albumin 4.6 GM/DL Calcium Level 10.1 MG/DL Alkaline Phosphatase 80 U/L Aspartate Amino Transf (AST/SGOT) 23 U/L Alanine Aminotransferase (ALT/SGPT) 62 U/L Total Bilirubin 0.9 MG/DL Sodium Level 137 MEQ/L Potassium Level 3.4 MEQ/L Chloride Level 99 MEQ/L Carbon Dioxide Level 25.0 MEQ/L Anion Gap 13 MEQ/L Estimat Glomerular Filtration Rate 53 ML/MIN MDM Medical Decision Making Medical Screen Exam Complete: Yes Emergency Medical Condition: Yes Medical Record Reviewed: Yes Differential Diagnosis Cyclical vomiting syndrome, gastroparesis, ileus, colitis Narrative Course I have reviewed the patient's electronic medical record. Reviewed his visit from 2 days ago including normal labs IV placed CBC is normal metabolic profile shows potassium 3.4 encounter 1.4. Creatinine yesterday was 1.4 LFT's are normal I gave him 1 L normal saline IV bolus as well as IV Zofran and IV Compazine and IM Phenergan His abdomen is soft and benign and nontender patient feels improved. He is euvolemic. I wrote him some Compazine suppositories. stable for outpatient follow-up Diagnosis Primary Impression: Nausea and vomiting Qualified Codes: G43.A0 - Cyclical vomiting, not intractable Additional Instructions: The patient was advised to follow up with their physician and return if they worsen I have recommended clear liquids for 24 hours, then gradually advance as tolerated. The patient was warned about potential sedation for the medications they will receive on prescription. Med/Other Pt SpecificInfo: Prescription(s) given Scripts Prochlorperazine Supp (Prochlorperazine Supp) 25 Mg Supp 25 MG RECTAL Q6H Y for NAUSEA OR VOMITING, #15 SUPP 0 Refills Prov: Ramirez Guthrie MD 10/30/17 Disposition: DISCHARGE HOME Condition: Stable Ramirez Guthrie MD Oct 30, 2017 17:40
[2017-10-30 17:45] LABS: AUTOMATED NEUTROPHIL # 11.5 TH/MM3 (1.8-7.7); BASOPHIL % 0.2 % (0.0-2.0); EOSINOPHIL % 0.1 % (0.0-4.0); HEMOGLOBIN 17.2 GM/DL (13.0-17.0); LYMPH % 9.1 % (9.0-44.0); LYMPHOCYTE # 1.2 TH/MM3 (1.0-4.8); MEAN CELL VOLUME 90.1 FL (80.0-100.0); MEAN CORPUSCULAR HEMOGLOBIN 30.5 PG (27.0-34.0); MEAN CORPUSCULAR HGB CONC 33.8 % (32.0-36.0); MEAN PLATELET VOLUME 8.8 FL (7.0-11.0); MONO % 2.3 % (0.0-8.0); MONOCYTE # 0.3 TH/MM3 (0-0.9); NEUT % 88.3 % (16.0-70.0); PLATELET COUNT 282 TH/MM3 (150-450); RED BLOOD COUNT 5.66 MIL/MM3 (4.50-5.90); RED CELL DISTRIBUTION WIDTH 13.8 % (11.6-17.2)
[2017-10-30] MEDS ORDERED: PROMETHAZINE INJ 25 MG/ML VIAL IM ONE (17:45)
[2017-10-30] MEDS ORDERED: PROCHLORPERAZINE INJ 10 MG/2 ML VIAL IV PUSH ONE (17:45)
[2017-10-30] MEDS ORDERED: SODIUM CHLOR 0.9% 1000 ML INJ 1,000 ML IV ONE (17:45)
[2017-10-30] MEDS ORDERED: ONDANSETRON HCL 4 MG/2 ML VIAL IVP ONE (17:45)
[2017-10-30 17:55] LABS: CHLORIDE 99 MEQ/L (98-107); SODIUM (NA) 137 MEQ/L (136-145)
[2017-10-30 17:58] LABS: ALBUMIN 4.6 GM/DL (3.4-5.0); BLOOD UREA NITROGEN 20 MG/DL (7-18); CALCIUM 10.1 MG/DL (8.5-10.1); GLUCOSE,RANDOM 137 MG/DL (74-106)
[2017-10-30 18:01] LABS: ALT (GPT) 62 U/L (12-78); AST (GOT) 23 U/L (15-37); GLOMERULAR FILTRATION RATE 53 ML/MIN (>89)
[2017-10-30 18:03] LABS: TOTAL BILIRUBIN ADULT 0.9 MG/DL (0.2-1.0); TOTAL PROTEIN 8.9 GM/DL (6.4-8.2)
[2017-10-30 18:04] LABS: ALKALINE PHOSPHATASE 80 U/L (45-117)
[2017-10-30 18:25] VITALS: BP 178/95; PULSE 89; RESP 16; O2SAT 96
[2017-10-30] MEDS ORDERED: PROC25SU22 RECTAL (18:33)
--- NOTE | 2017-10-30 18:46 | RADRPT ---
EXAM DATE/TIME: 10/30/2017 17:45 [place] COMPARISON: No previous studies available for comparison. INDICATIONS : Vomiting. MEDICAL HISTORY : Hypertension. Chronic obstructive pulmonary disease. SURGICAL HISTORY : None. ENCOUNTER: Initial ACUITY: 3 days PAIN SCORE: 8/10 LOCATION: Bilateral abdomen FINDINGS: Supine and upright views of the abdomen were performed. The abdominal bowel gas pattern is normal. T here is residual contrast in large bowel. No bowel obstruction. No free air. No acute bony abnormalit y. CONCLUSION: 1. No acute findings. No evidence for bowel obstruction. Tomer Vicente MD on October 30, 2017 at 18:42 Board Certified Radiologist. This report was verified electronically.
[2017-10-30] MEDS ORDERED: ZOFR4TAB3 SL (18:53)
== END 2017-10-30 19:08 | disposition home or self-care (01) ==
LOC: PHED 16:50
DX: G43.A0 Cyclical vomiting, in migraine, not intractable (principal); I10 Essential (primary) hypertension; J44.9 Chronic obstructive pulmonary disease, unspecified; E78.00 Pure hypercholesterolemia, unspecified; I48.91 Unspecified atrial fibrillation; F32.9 Major depressive disorder, single episode, unspecified; F41.9 Anxiety disorder, unspecified; K21.9 Gastro-esophageal reflux disease without esophagitis; F17.210 Nicotine dependence, cigarettes, uncomplicated; F12.90 Cannabis use, unspecified, uncomplicated; Z79.899 Other long term (current) drug therapy
CPT/HCPCS: 74019; 80053; 85025; 96361; 96372; 96374; 96375; 99284; J0780; J2405; J2550; J7030

== ENCOUNTER 2017-12-18 07:52 | Day surgery (SDC) | payer OTHER ==
[~2017-12-18] VITALS: Ht 182.9 cm; Wt 87.4 kg
[~2017-12-18 07:52] MED LIST changes: +PROC25SU22 RECTAL
[2017-12-18] MEDS ORDERED: IOHEXOL 350 MG/ML 50 ML BTL (for Cath Lab) OTHER ONE (07:53)
[2017-12-18] MEDS ORDERED: SODIUM CHLOR 0.9% 1000 ML INJ 1,000 ML IV SCH (08:15)
[2017-12-18 09:16] VITALS: BP 116/75; PULSE 77; RESP 18; TEMP 98.4; O2SAT 97
[2017-12-18] MEDS ORDERED: DIAZ10TA PO (09:37)
[2017-12-18] MEDS ORDERED: APIX5TAB PO (09:37)
[2017-12-18] MEDS ORDERED: FISHCAP4 PO (09:37)
[2017-12-18] MEDS ORDERED: FEXO180T PO (09:37)
[2017-12-18] MEDS ORDERED: CHOL5000 PO (09:37)
[2017-12-18] MEDS ORDERED: ALBUAER3 INH (09:37)
[2017-12-18] MEDS ORDERED: MIDAZOLAM HCL 2 MG/2 ML VIAL ONE (10:04)
[2017-12-18] MEDS ORDERED: HEPARIN-NS/PF FLUSH BAG 2,000 ML IV FLUSH ONE (10:04)
[2017-12-18] MEDS ORDERED: HEPARIN SODIUM - IV 10,000 UNITS/10 ML VIAL ONE (10:05)
[2017-12-18] MEDS ORDERED: HEPARIN-D5W 25,000 U/250 ML 250 ML IV PRN (11:15)
[2017-12-18] MEDS ORDERED: SODIUM CHLOR 0.9% 250 ML INJ 250 ML IV PRN (11:15)
--- NOTE | 2017-12-18 11:20 | CATHPROC ---
[employer] HIS Report Study Information Study Number Admission Scheduled Start Study Start [id number] Dec 18 2017 7:52AM 12/18/2017 Dec 18 2017 9:28AM [place] [facility] Cath Endovascular Study Admit Source Facility Department Other [facility] - [employer] Manager Physician and Clinical Staff Initial Francois Moore Sonar Technician Lamine Early,RN Recorder Eliz Herring,POLICY WRITER SALES TECH2 Scrub Lefbi, Moshe,RT(R) Procedures Performed Procedure Location (Site) Vessel Name Angiogram (manual) Fem Sup. (right) Femoral Art Angiogram (manual) Iliac R. Com. (R4) Illiac Art. Angiogram (manual) Peroneal (right) Popliteal Angiogram (manual) Popliteal R (R10) Popliteal Angiogram (manual) Tib, Post (right) Popliteal Equipment Time Asparagus Cutter Description Size Mfg Part Number Used/Scraped [id number] 11:04 CARDIVA MEDICAL VASCADE, FR5 CLOSURE SYSTEM FR 5 Used *[id number] 09:30 CORDIS/ FELY RIM SUPER TORQUE CATHETER FR 5 Used *[id number] 09:30 MEDLINE INDUSTRIES PACK, CCL CUSTOM * Used *[id number] 09:30 MEDLINE PACER PEN, SKIN DUAL W/ RULER * Used *[id number] 09:30 Genetix Fusion WIRE, EXCHANGE 260CM 3MMJ 260CM Used *[id number] 09:30 NAMIC MANIFOLD, 4 PORT * Used *[id number] 09:30 NAMIC TUBING, HIGH PRESSURE 48" 48" Used *[id number] 09:30 NYCOMED OMNIPAQUE, 300 MG, 150ML 150ML [id number] Used [id number] 09:30 AgreeYa Mobility - Onvelop MEDICAL BLANKET,WARM AIR CCL * Used *[id number] 09:30 TERUMO MEDICAL SHEATH, FR5 TERUMO (10CM) FR 5 Used *[id number] WIRE, ANGLE GLIDE STIFF .035 [id number] 09:30 TERUMO MEDICAL/FELY 260CM Used 260CM *[id number] History: Current Medications Medication Dosage/Unit Route Frequency Last Date/Time Taken ASA Statins (any) PLAVIX ELIQUIS History: Allergies Allergy Reaction No Known Allergies History: Risk Factors Hypertension Dyslipidemia Yes Yes Peripheral Artery Chronic Lung Disease Disease History: Arrhythmias Selection Items Atrial fibrillation History: Other Disease Selection Items Previous RF Ablation History: Other Current Smoker Method No Cigarettes Labs Hgb (g/dl) Hct (%) WBC (l/cumm) Platelets (thousands) 11.60-17.00 35.00-51.00 4.00-11.00 150.00-450.00 14.6 44.4 6.6 330 Glucose (mg/dl) BUN (mg/dl) Creatinine (mg/dl) BUN:Creatinine (1:x) 74.00-106.00 7.00-18.00 0.50-1.30 10.00-20.00 100 13 0.9 14.4 Na (meq/l) K (meq/l) 136.00-145.00 3.50-5.10 142 4.6 INR (PTT:PT) 0.90-1.10 0.9 Medication Medication Total Dose (Bolus/Oral) Medication Total Dosage/Unit 1% XYLOCAINE 20 mL FENTANYL 50 mcg VERSED 2 mg Medications (Bolus/Oral) Medication Time Given Dosage/Unit Administered By Reason VERSED 12/18/2017 10:31:21 AM 2 mg Lamine Early 2 mg VERSED given in lab by Lamine Early RN in Right Arm via Peripheral IV. Ordered by Faina Francis. FENTANYL 12/18/2017 10:32:42 AM 50 mcg Lamine Early 50 mcg FENTANYL given in lab by Lamine Early RN in Right Arm via Peripheral IV. Ordered by Marty Francis. 1% XYLOCAINE 12/18/2017 10:35:55 AM 20 mL Francois Francis 20 mL 1% XYLOCAINE given in lab by Francois Francis in Left Groin via Subcutaneous. Ordered by Marty Francis. Medication (Drip) Medication Time Given Dosage/Unit Concentration/Unit Diluent (ml) Solution IV Solutions 12/18/2017 10:00:08 AM 0 mL (IV) 500 NaCl .9 IV Solutions given in lab by Lamine Early RN in Right Arm via Peripheral IV. Pump/Drip Flow = 20 ml /hr using NaCl .9. Initial Case Assessment Cardiovascular HR Rhythm NIBP Chest Pain 64 sr 118/71 0 Circulatory - Right Pulses Dorsalis Pedis Posterior Tibial Femoral d d 3 Scale (0,1,2,3,4,d) Circulatory - Left Pulses Dorsalis Pedis Posterior Tibial Femoral d d 3 Scale (0,1,2,3,4,d) Neurological State Oriented to time-place- Alert Moves all extremities person Respiration - General Respiration Rate SpO2 (%) (B/min) 18 98 Final Case Assessment Cardiovascular HR Rhythm NIBP Chest Pain 62 sr 130/84 0 Circulatory - Right Pulses Dorsalis Pedis Posterior Tibial Femoral d d 3 Scale (0,1,2,3,4,d) Circulatory - Left Pulses Dorsalis Pedis Posterior Tibial Femoral d d 3 Scale (0,1,2,3,4,d) Neurological State Oriented to time-place- Alert Moves all extremities person Respiration - General Respiration Rate SpO2 (%) (B/min) 10 97 Chronological Log Time Study Chronological Log 9:59:39 Patient arrived via Bed. 9:59:41 Patient Name, D.O.B, / Armband Verified By R.N. 9:59:42 Consent signed by the physician and the patient and verified by the Fast Food Restaurant Manager staff. 9:59:43 Pre-op and post- op instructions given; patient acknowledges understanding of instructions. 9:59:44 Verbal Stimulation=2 Physical Stimulation=2 Airway=2 Respiration=2 TOTAL=8. (0=absent, 1=rodriguez ited, 2=present) 10:00:02 Presedation assessment performed by Fast Food Restaurant Manager RN. 10:00:04 Patient has been NPO for More than 6Hrs. 10:00:05 Skin Breakdown-none per patient 10:00:06 Radha Prominences Protected 10:00:07 A # 22 IV was noted in the Upper Arm (right). Grade = 0 10:00:08 IV Solutions given in lab by Lamine Early, RN in Right Arm via Peripheral IV. Pump/Drip Fl ow = 20 ml/hr using NaCl .9. Vitals capture started with the following parameters, Patient=Adult, Interval=5 min, Initial Pr lwctma=587 mmHg, 10:04:15 Deflation Rate=5 mmHg, Cuff placed on Right Ankle 10:04:57 HR=67 bpm, VTRL=638/81 mmhg, SpO2=99.0 %, Resp=9 B/min 10:09:54 HR=66 bpm, ZUHE=178/71 mmhg, SpO2=98.0 %, Resp=10 B/min 10:12:42 Reference ECG taken 10:13:00 History and physical on the chart or being dictated. Assessment: Initial Case, HR=64 BPM, Rhythm=sr, IAMJ=715/71 mmhg, Chest Pain=0 Right Pulses: Adilson Ped=d, Post Tib=d, Femoral=3 10:13:01 Left Pulses: Adilson Ped=d, Post Tib=d, Femoral=3 Neurological: State=Alert, Ox3, GUTIERREZ Respiration: Resp=18 B/min, SpO2=98 % 10:14:49 HR=71 bpm, EHUJ=092/84 mmhg, SpO2=98.0 %, Resp=18 B/min, Pain=0, Santosh=10, Palacios=2 10:16:45 Bilateral groins prepped with 2% chlorhexidine, and draped after a 3 minute waiting time. 10:19:50 HR=72 bpm, YPHZ=856/85 mmhg, AaI3=659.0 %, Resp=21 B/min 10:22:04 Pressure channel 1 zeroed. 10:23:09 MD paged 10:23:15 MD responded 10:24:53 HR=72 bpm, RANR=905/88 mmhg, SpO2=99.0 %, Resp=13 B/min 10:29:56 HR=74 bpm, HINJ=208/77 mmhg, RyQ7=878.0 %, Resp=18 B/min 10:31:21 2 mg VERSED given in lab by Lamine Early RN in Right Arm via Peripheral IV. Ordered by Francois Thacker. 10:31:42 MD arrived. 10:32:42 50 mcg FENTANYL given in lab by Lamine Early RN in Right Arm via Peripheral IV. Ordered Francois Burleson. 10:34:51 HR=87 bpm, IDMZ=285/93 mmhg, SpO2=97.0 %, Resp=18 B/min Time Out. Correct patient, correct procedure, correct physician, power injector loaded with con trast with surgical team 10:35:35 present. Time Out Concurred by MD and individual staff in procedure. 10:35:53 Case Start 10:35:55 20 mL 1% XYLOCAINE given in lab by Francois Francis in Left Groin via Subcutaneous. Ordered Francois Burleson. 10:38:06 Access site was Left Femoral Artery. 10:38:15 A SHEATH, FR5 TERUMO (10CM) FR 5 was advanced into the Fem Art (left) using the Percutaneou s technique. A RIM SUPER TORQUE CATHETER FR 5 was advanced over a wire. OMNIPAQUE, 300 MG, 150ML 150ML was u sed for 10:38:57 injections. 10:39:54 HR=69 bpm, VNIL=251/84 mmhg, SpO2=99.0 %, Resp=16 B/min Recorded Pressure: AoAbd, HR=68, Condition=Condition 1 10:39:57 (Descending Abdominal Aorta) AoAbd 137/71/97 10:40:33 Iliac R. Com. (R4) angiogram, manually injected. 10:40:50 Fem Sup. (right) angiogram, manually injected. 10:40:56 Popliteal R (R10) angiogram, manually injected. 10:42:35 Peroneal (right) angiogram, manually injected. 10:43:15 Tib, Post (right) angiogram, manually injected. 10:44:53 HR=75 bpm, NQRL=161/84 mmhg, SpO2=96.0 %, Resp=16 B/min 10:46:39 Catheter was removed w/o difficulty 10:46:[address] Loco 10:49:57 HR=71 bpm, MUNO=258/82 mmhg, SpO2=96.0 %, Resp=16 B/min 10:55:06 HR=71 bpm, XIXS=022/66 mmhg, SpO2=98.0 %, Resp=24 B/min 10:59:57 HR=66 bpm, MBYG=729/79 mmhg, SpO2=97.0 %, Resp=10 B/min 11:02:35 No case complications noted. 11:02:36 Cine recording checked. 11:04:46 VASCADE, FR5 CLOSURE SYSTEM FR 5 placement in the Fem Art (left) Manual pressure held 11:04:58 HR=63 bpm, FTEO=662/76 mmhg, SpO2=98.0 %, Resp=12 B/min 11:06:16 Case End 11:09:57 HR=74 bpm, QDTC=290/81 mmhg, SpO2=97.0 %, Resp=12 B/min 11:14:58 HR=75 bpm, BORW=825/84 mmhg, SpO2=96.0 %, Resp=6 B/min 11:16:08 Hemostasis obtained. 11:16:33 Sterile dressing applied to site 11:16:34 No case complications noted. 11:16:35 Cine recording checked. Assessment: Final Case, HR=62 BPM, Rhythm=sr, OCPD=666/84 mmhg, Chest Pain=0 Right Pulses: Adilson Ped=d, Post Tib=d, Femoral=3 11:16:38 Left Pulses: Adilson Ped=d, Post Tib=d, Femoral=3 Neurological: State=Alert, Ox3, GUTIERREZ Respiration: Resp=10 B/min, SpO2=97 % 11:19:02 Patient moved to bed 11:19:10 Patient transported to DOCU. End Study - Contrast Media Used In Study Contrast Total Opened (mL) Total Used (mL) Total Wasted (mL) Omnipaque 40 40 0 End Study - Maximum Contrast Load Max Contrast Load (mL) 464.6 End Study - Radiation Exposure Fluoro Time (minutes) 1.3 End Study - Sheaths Sheaths Pulled By Sheath Hold Time (min) Minor, Francois End Study - Patient Disposition Complications Transferred To Interventional Outcome No Telemetry Bed No attempt made
--- NOTE | 2017-12-18 11:39 | MA ---
cc: Francois Francis MD 12/18/2017 This is a peripheral angiography. PROCEDURES PERFORMED: 1. Fluoroscopy with interpretation. 2. Right lower extremity peripheral angiography with the first, second, third order visualization interpretation METHOD: Risks, benefits, alternatives discussed with the patient. The patient understood and consented to the procedure. The patient was brought catheterization lab, placed on the catheterization table. Left groin was prepped and draped in sterile fashion. The left groin was anesthetized with 2% lidocaine. Left common femoral artery was cannulated and a 5 [place] 11 cm sheath was placed without difficulty. Right lower extremity peripheral angiography; right common internal and external iliac arteries widely patent. Right common femoral, profunda artery widely patent. There is a fem-pop bypass graft that is occluded. Superficial femoral artery is occluded in the mid segment. There is a short segment of collaterals that feeds the geniculate that actually then collateralizes a posterior tibial artery. There is visualization of the peroneal but slow flow down to the ankle. The anterior tibial is not visualized until the level of the ankle with dorsalis pedis visualized only via collaterals. 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 PLAN: Patient has rather diffuse disease, is probably secondary to his thrombotic-mediated event. Reviewed the films with Dr. Loco for consideration of either thrombolytic therapy versus consideration of peripheral bypass. Dr. Loco feels at least looking at the films that he would be a better candidate for peripheral bypass. We are going to initiate a heparin drip. A Vascade closure device was then placed on the left common femoral artery. We will consult Dr. Loco for further recommendations Francois Francis MD JOSÉ LUIS/LK , 11:20 AM , 11:37 AM MARCIAL
--- NOTE | 2017-12-18 11:56 | PD.VS.CON ---
History of Present Illness Chief Complaint: R LE pain Consult Requested by: Dr. Francis History of Present Illness 52 yo male with PAD and a history of R LE bypass 7 years ago for claudication. From his description it was a distal bypass with vein. He then developed what sounds like graft thrombosis 3 weeks post-operatively that was attempted to be treated endovascularly even with lysis. According to the patient, this was unsuccessful and he had endovascular treatment of his belkofski arteries. About 2 weeks ago, he began having R leg pain. At present, he is motor intact, has some numbness and short distance claudication. He has no tissue loss and perhaps early rest pain. His foot hurts "all the time" but doesn't keep him up at night. Underwent diagnostic angiogram today. 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 Family History [place] Home Medications Active Scripts Pantoprazole (Protonix) 40 Mg Tab, 40 MG PO DAILY for Reflux, #30 TAB 0 Refills Prov:Thomas Herbert MD 10/28/17 Potassium Chloride ER (Potassium Chloride ER) 20 Meq Tab, 20 MEQ PO DAILY for Electrolyte Replacement, #30 TAB 0 Refills Prov:Flynn Patel MD PhD 12/12/16 Reported Medications Cholecalciferol (Vitamin D3) 5,000 Unit Cap, 5000 UNITS PO DAILY for Nutritional Supplement, #30 CAP 0 Refills 12/18/17 Fish Oil-Cholecalciferol (Fish Oil + D3) 1,200-1,000 Mg-Unit Cap, 1 CAP PO DAILY for Nutritional Supplement, #30 CAP 0 Refills 12/18/17 Fexofenadine (Fexofenadine) 180 Mg Tab, 180 MG PO DAILY for Allergy Management, #30 TAB 0 Refills 12/18/17 Apixaban (Eliquis) 5 Mg Tab, 5 MG PO BID for Blood Clot Prevention, #60 TAB 0 Refills 12/18/17 Diazepam (Diazepam) 10 Mg Tab, 10 MG PO HS, TAB 0 Refills 12/18/17 Albuterol 8.5 GM Inh (Proair Hfa 8.5 GM Inh) 90 Mcg/Act Aer, 2 PUFF INH Q4-6H Y for SHORTNESS OF BREATH, #1 INHALER 0 Refills 108 mcg/actuation 12/18/17 Rosuvastatin (Rosuvastatin) 20 Mg Tab, 20 MG PO DAILY for Cholesterol Management , #30 TAB 0 Refills 10/02/16 Triamterene-Hydrochlorothiazide (Triamterene-Hydrochlorothiazide) 37.5-25 Mg Tab , 1 TAB PO DAILY, #30 TAB 0 Refills 10/02/16 Doxepin (Doxepin) 75 Mg Cap, 75 MG PO DAILY, #30 CAP 0 Refills 10/02/16 Coded Allergies: No Known Allergies (Unverified Adverse Reaction, Unknown, 10/30/17) Review of Systems Cardiovascular: COMPLAINS OF: Claudication, DENIES: Chest pain, Lower Extremity Edema Physical Exam Vitals/I&O Date Time Temp Pulse Resp B/P (MAP) Pulse Ox O2 Delivery O2 Flow Rate FiO2 12/18/17 09:16 98.4 77 18 116/75 (89) 97 Neuro: alert, oriented, no distress HEENT: NC/AT Neck: no JVD, trachea midline Heart: reg rate Lungs: nonlabored Vascular: palpable L pedal pulses palpable R femoral pulse but no pedal pulses Extremities: Healed R LE incisions motor intact no tissue loss angio reviewed - SFA and popliteal occlusion; PT reconstitution but poor pedal opacification Assessment and Plan Plan Sub-acute limb ischemia, failed distal bypass; no motor dysfunction and foot clearly viable, so no immediate limb threat 1. Needs systemic anticoagulation, which he is already on 2. Neurovascular checks 3. ABIs and UE/LE vein survey 4. Will plan redo bypass at some point, not emergent Wallace Loco MD [facility]ad[facility] plans staff officer [facility] - [facility] V[facility] at [facility] [phone] Wallace Loco MD Dec 18, 2017 11:56
--- NOTE | 2017-12-18 14:13 | RADRPT ---
EXAM DATE/TIME: 12/18/2017 00:00 [facility] COMPARISON: No previous studies available for comparison. INDICATIONS : PVD TECHNIQUE: Four-cuff ankle and brachial pressures were obtained. Pulse cuff waveform tracings of the ankles were recorded, and ankle-brachial indices were calculated. PRESSURES (mmHg): Brachial (arm): Right IV SITE Left 147 Ankle: Right 88 Left 124 MIHIR: Right 0.60 Left 0.84 TBI: Right 0.00 Left 0.79 PULSED CUFF WAVEFORMS: Demonstrate diminished activity to the distal waveform bilaterally. CONCLUSION: 1. Severely diminished MIHIR on the right at 0.6. TBI cannot be calculated. 2. Moderately diminished MIHIR on the left. TBI is within the range of normal. Wil Quijano MD on December 18, 2017 at 14:10 Board Certified Radiologist. This report was verified electronically.
--- NOTE | 2017-12-18 14:43 | RADRPT ---
EXAM DATE/TIME: 12/18/2017 12:45 [facility] COMPARISON: No previous studies available for comparison. INDICATIONS : Pre op leg bypass. MEDICAL HISTORY : Hypercholesterolemia. Hypertension. Gastroesophageal reflux disease. Anticoagulant therapy. Periphera l vascular disease. Afib. COPD. Depression. Anxiety. SURGICAL HISTORY : Right leg bypass. Cardiac ablation. ENCOUNTER: Initial ACUITY: 1 day PAIN SCORE: 0/10 LOCATION: Bilateral legs. TECHNIQUE: Venous ultrasound of the left and right leg was performed from the inguinal ligament to the proximal calf. Real-time, color Doppler and spectral tracing, compression and augmentation techniques were us ed. FINDINGS: RIGHT LEG: There is normal compressibility of the deep venous system from the inguinal region to the proximal ca lf. No echogenic clot is seen in the lumen of the common femoral, femoral, popliteal, and posterior tibial veins. There is a normal response of the venous system to proximal and distal augmentation an d respiration. LEFT LEG: There is normal compressibility of the deep venous system from the inguinal region to the proximal ca lf. No echogenic clot is seen in the lumen of the common femoral, femoral, popliteal, and posterior tibial veins. There is a normal response of the venous system to proximal and distal augmentation an d respiration. CONCLUSION: No evidence of deep venous thrombosis within the lower extremities. Wallace Rainey MD on December 18, 2017 at 14:40 Board Certified Radiologist. This report was verified electronically.
--- NOTE | 2017-12-18 14:44 | RADRPT ---
EXAM DATE/TIME: 12/18/2017 13:09 [facility] COMPARISON: No previous studies available for comparison. INDICATIONS : Preop leg bypass. MEDICAL HISTORY : Hypercholesterolemia. Hypertension. Gastroesophageal reflux disease. Anticoagul ant therapy. Peripheral vascular disease. Afib. COPD. Depression. Anxiety. SURGICAL HISTORY : Right leg bypass. Cardiac ablation. ENCOUNTER: Initial ACUITY: 1 day PAIN SCORE: 0/10 LOCATION: Bilateral arms. FINDINGS: RIGHT UPPER EXTREMITY: There is spontaneous flow documented in the brachial, basilic, cephalic, a xillary, and subclavian veins. The vessels are compressible and augmentation response is documented. No filling defects are seen. The flow is phasic with respiration. Direction of flow in the jugula r vein is caudal. LEFT UPPER EXTREMITY: There is spontaneous flow documented in the brachial, basilic, cephalic, ax illary, and subclavian veins. The vessels are compressible and augmentation response is documented. No filling defects are seen. The flow is phasic with respiration. Direction of flow in the jugular vein is caudal. CONCLUSION: No evidence of deep venous thrombosis within the upper extremities. Wallace Rainey MD on December 18, 2017 at 14:41 Board Certified Radiologist. This report was verified electronically.
--- NOTE | 2017-12-18 15:14 | RADRPT ---
EXAM DATE/TIME: 12/18/2017 12:53 [facility] COMPARISON: No previous studies available for comparison. INDICATIONS : Pre op leg bypass. MEDICAL HISTORY : Peripheral vascular disease. Anticoagulant therapy. Hypercholesterolemia. Irregular heartbeat. COPD. GERD. Depression. Anxiety. Hypertension. SURGICAL HISTORY : Right leg bypass. Cardiac ablation. ENCOUNTER: Initial ACUITY: 1 day PAIN SCORE: 0/10 LOCATION: Bilateral legs. GREATER SAPHENOUS VEIN THIGH: PROXIMAL: Right Non-visualized Left 5 mm MID: Right Non-visualized Left 2 mm DISTAL: Right Non-visualized Left 2 mm CALF: PROXIMAL: Right Non-visualized Left Non-visualized MID: Right Non-visualized Left 1 mm DISTAL: Right Non-visualized Left 1 mm FINDINGS: The venous system of the lower extremities are patent by color Doppler imaging. Measurements of the leg veins (in mm) are listed above. CONCLUSION: 1. Measurements as above, within normal limits. Right greater saphenous vein surgically removed. Tomer Vicente MD on December 18, 2017 at 15:11 Board Certified Radiologist. This report was verified electronically.
--- NOTE | 2017-12-18 15:17 | RADRPT ---
EXAM DATE/TIME: 12/18/2017 13:23 [facility] COMPARISON: No previous studies available for comparison. INDICATIONS : Preop leg bypass. MEDICAL HISTORY : Hypercholesterolemia. Hypertension. Gastroesophageal reflux disease. Anticoagulant therapy. Afib. Per ipheral vascular disease. COPD. Depression. Anxiety. SURGICAL HISTORY : Right leg bypass. Cardiac ablation. ENCOUNTER: Initial ACUITY: 1 day PAIN SCORE: 0/10 LOCATION: Bilateral arms. CEPHALIC: ORIGIN: Right 2 mm Left 3 mm MID-ARM: Right Non-visualized Left Non-visualized ELBOW: Right Non-visualized Left Non-visualized FOREARM: Right Non-visualized Left Non-visualized WRIST: Right Non-visualized Left Non-visualized BASILIC: ORIGIN: Right Non-visualized Left 3 mm MID-ARM: Right 5 mm Left 3 mm ELBOW: Right 2 mm Left 3 mm ARTERIES: BRACHIAL: Right 4 mm Left 5 mm ULNAR: Right 2 mm Left 2 mm RADIAL: Right 2 mm Left 2 mm VEINS: RADIAL: Right 1 mm Left 1 mm ULNAR: Right 1 mm Left 1 mm FINDINGS: The venous system of the upper extremities are patent by color Doppler imaging. Measurements of the arm veins (in mm) are listed above. CONCLUSION: 1. Venous measurements as above. Tomer Vicente MD on December 18, 2017 at 15:15 Board Certified Radiologist. This report was verified electronically.
== END 2017-12-18 14:45 | disposition home or self-care (01) ==
LOC: HCAT 07:52 → HDIC 07:53 → HCAT 14:45
PROVIDERS: ATTEND Internal Medicine
DX: I73.9 Peripheral vascular disease, unspecified (principal); I10 Essential (primary) hypertension; I47.1 Supraventricular tachycardia; I48.91 Unspecified atrial fibrillation; J44.9 Chronic obstructive pulmonary disease, unspecified; M79.671 Pain in right foot; K21.9 Gastro-esophageal reflux disease without esophagitis; E78.00 Pure hypercholesterolemia, unspecified; I49.9 Cardiac arrhythmia, unspecified; I20.9 Angina pectoris, unspecified; I70.0 Atherosclerosis of aorta; R07.9 Chest pain, unspecified; R00.2 Palpitations; R70.0 Elevated erythrocyte sedimentation rate; F41.9 Anxiety disorder, unspecified; R04.2 Hemoptysis; E78.5 Hyperlipidemia, unspecified; Z87.891 Personal history of nicotine dependence; Z79.01 Long term (current) use of anticoagulants
CPT/HCPCS: 75710; 86850; 86900; 86901; 93922; 93970; 93998; C1760; C1769; C1893; G0269; J1644; J2250; J3010; Q9967

== ENCOUNTER 2018-03-04 13:14 | Inpatient (IN) | payer OTHER ==
[~2018-03-04] VITALS: Ht 182.9 cm; Wt 78.0 kg
[~2018-03-04 13:14] MED LIST changes: +ALBUAER3 INH; +APIX5TAB PO; +CHOL5000 PO; +DIAZ10TA PO; -DICY10 PO; +FEXO180T PO; +FISHCAP4 PO; -LANS30CA PO; -METO25TA3 PO; -PROC25SU22 RECTAL; -PROM1SUP7 RECTAL; -PROM25TA10 PO; -SUCR1S PO; -ZOFR4TAB3 SL
[2018-03-04 13:25] VITALS: BP 137/87; PULSE 70; RESP 16; TEMP 97.9; O2SAT 95
--- NOTE | 2018-03-04 13:36 | PD ---
HPI Chief Complaint: Neuro Symptoms/ Deficits Time Seen by Provider: 13:18 Travel History International Travel<30 days: No Contact w/Intl Traveler<30days: No Traveled to known affect area: No History of Present Illness HPI Patient comes in complaining of headache, blurred vision to his left eye, got diaphoretic according to witnesses approximately 60 minutes ago. Currently the patient is pain-free, and he no longer has any changes or complaints. Patient is more anxious at this time and worried about what may be going on. No nondrug allergies Past medical history significant for atrial fibrillation, hypertension, hypercholesterolemia on Eliquis, peripheral vascular disease, COPD, anxiety, failed right femoropopliteal being followed by Dr. Loco [facility] Past Medical History Hx Anticoagulant Therapy: Yes (Eliquis ) Anxiety: Yes Depression: Yes Heart Rhythm Problems: Yes (AF) Cancer: No Cardiovascular Problems: Yes (A Fib, HTN, high chol, mild [place]) High Cholesterol: Yes Chest Pain: No COPD: Yes Diabetes: No Diminished Hearing: No Gastrointestinal Disorders: No GERD: Yes Glaucoma: No Hepatitis: No Hiatal Hernia: No Hypertension: Yes Respiratory: Yes (COPD, sleep apnea) Integumentary: No Thyroid Disease: No Past Surgical History Other Surgery: Yes (RT FEMEROL POPITEAL- AND FOR BLOCKAGE) Social History Alcohol Use: Yes (WEEKENDS) Tobacco Use: No (2 CIGS PER DAY) Substance Use: No Allergies-Medications (Allergen,Severity, Reaction): Coded Allergies: No Known Allergies (Unverified Adverse Reaction, Unknown, 03/04/18) Reported Meds & Prescriptions Reported Meds & Active Scripts Active Protonix (Pantoprazole Sodium) 40 Mg Tab 40 Mg PO DAILY Potassium Chloride ER (Potassium Chloride) 20 Meq Tab 20 Meq PO DAILY Reported Metoprolol Tartrate 25 Mg Tab 25 Mg PO BID Vitamin D3 (Cholecalciferol) 5,000 Unit Cap 5,000 Units PO DAILY Fish Oil + D3 (Fish Oil-Cholecalciferol) 1,200-1,000 Mg-Unit Cap 1 Cap PO DAILY Eliquis (Apixaban) 5 Mg Tab 5 Mg PO BID Diazepam 10 Mg Tab 10 Mg PO HS Proair Hfa 8.5 GM Inh (Albuterol Sulfate) 90 Mcg/Act Aer 2 Puff INH Q4-6H PRN 108 mcg/actuation Rosuvastatin (Rosuvastatin Calcium) 20 Mg Tab 20 Mg PO DAILY Triamterene-Hydrochlorothiazide 37.5-25 Mg Tab 1 Tab PO DAILY Doxepin (Doxepin HCl) 75 Mg Cap 75 Mg PO DAILY Physical Exam Narrative GENERAL: SKIN: Warm and dry. HEAD: Atraumatic. Normocephalic. EYES: Pupils equal and round. No scleral icterus. No injection or drainage. EOMI intact ENT: No nasal bleeding or discharge. Mucous membranes pink and moist. NECK: Trachea midline. No JVD. CARDIOVASCULAR: Regular rate and rhythm. RESPIRATORY: No accessory muscle use. Clear to auscultation. Breath sounds equal bilaterally. GASTROINTESTINAL: Abdomen soft, non-tender, nondistended. Hepatic and splenic margins not palpable. MUSCULOSKELETAL: Extremities without clubbing, cyanosis, or edema. No obvious deformities. NEUROLOGICAL: Awake and alert. No obvious cranial nerve deficits. Motor grossly within normal limits. Five out of 5 muscle strength in the arms and legs. Normal speech. PSYCHIATRIC: Appropriate mood and affect; insight and judgment normal. Data Data Last Documented VS Vital Signs Date Time Temp Pulse Resp B/P (MAP) Pulse Ox O2 Delivery O2 Flow Rate FiO2 03/04/18 13:25 97.9 70 16 137/87 (104) 95 Room Air Orders Orders Electrocardiogram (03/04/18 13:31) Complete Blood Count With Diff (03/04/18 13:31) Comprehensive Metabolic Panel (03/04/18 13:31) Ckmb (Isoenzyme) Profile (03/04/18 13:31) Troponin I (03/04/18 13:31) B-Type Natriuretic Peptide (03/04/18 13:31) Prothrombin Time / Inr (Pt) (03/04/18 13:31) Act Partial Throm Time (Ptt) (03/04/18 13:31) Lipase (03/04/18 13:31) Urinalysis - C+S If Indicated (03/04/18 13:31) Ct Brain W/O Iv Contrast(Rout) (03/04/18 13:31) Drug Screen, Random Urine (03/04/18 13:31) Alcohol (Ethanol) (03/04/18 13:31) Salicylates (Aspirin) (03/04/18 13:31) Tylenol (Acetaminophen) (03/04/18 13:31) Labs Laboratory Tests Test 03/04/18 13:25 Prothrombin Time 10.5 SEC Prothromb Time International Ratio 1.0 RATIO Activated Partial Thromboplast Time 24.8 SEC Blood Urea Nitrogen 9 MG/DL Creatinine 1.00 MG/DL Random Glucose 93 MG/DL Total Protein 6.8 GM/DL Albumin 3.5 GM/DL Calcium Level 8.5 MG/DL Alkaline Phosphatase 89 U/L Aspartate Amino Transf (AST/SGOT) 13 U/L Alanine Aminotransferase (ALT/SGPT) 17 U/L Total Bilirubin 0.5 MG/DL Sodium Level 138 MEQ/L Potassium Level 3.8 MEQ/L Chloride Level 103 MEQ/L Carbon Dioxide Level 25.9 MEQ/L Anion Gap 9 MEQ/L Estimat Glomerular Filtration Rate 78 ML/MIN Total Creatine Kinase 64 U/L Troponin I 0.04 NG/ML Lipase 77 U/L Ethyl Alcohol Level LESS THAN 3 MG/DL MDM Medical Decision Making Medical Screen Exam Complete: Yes Emergency Medical Condition: Yes Medical Record Reviewed: Yes Interpretation(s) EKG shows normal sinus rhythm, 71 bpm, normal intervals, no evidence of any ST elevation [place], incomplete right bundle branch block pattern Differential Diagnosis TIA versus a intracranial hemorrhage versus CVA versus atypical cardiac presentation Narrative Course CBC is pending as of 142 Coagulation profile is within normal limits Alcohol level is negative Electrolytes are all within normal limits, normal kidney liver and pancreatic functions. First set of cardiac enzymes negative troponin 0.04 total CPK [address] read by radiologist as negative noncontrast CT Diagnosis Primary Impression: TIA Admitting Information Admitting Physician Requests: Observation Min Dowd MD March 04, 2018 13:36
[2018-03-04] MEDS ORDERED: METO25TA3 PO (13:40)
[2018-03-04 14:08] LABS: CHLORIDE 103 MEQ/L (98-107); SODIUM (NA) 138 MEQ/L (136-145)
[2018-03-04 14:12] LABS: ALBUMIN 3.5 GM/DL (3.4-5.0); BICARBONATE 25.9 MEQ/L (21.0-32.0); BLOOD UREA NITROGEN 9 MG/DL (7-18); CALCIUM 8.5 MG/DL (8.5-10.1); GLUCOSE,RANDOM 93 MG/DL (74-106)
[2018-03-04 14:15] LABS: ALT (GPT) 17 U/L (12-78); AST (GOT) 13 U/L (15-37); GLOMERULAR FILTRATION RATE 78 ML/MIN (>89)
--- NOTE | 2018-03-04 14:16 | RADRPT ---
EXAM DATE: 03/04/2018 2:00 PM EDT AGE/SEX: 52 years / Male INDICATIONS: Cephalgia. Blurred vision in left eye. Evaluate for hemorrhage. CLINICAL DATA: This is the patient's initial encounter. Patient reports that signs and symptoms have been present for 1 day and indicates a pain score of 7/10. MEDICAL/SURGICAL HISTORY: Cardiovascular disease. Chronic obstructive pulmonary disease. Gastroes ophageal reflux disease. Hypertension. None. RADIATION DOSE: 55.43 CTDI (mGy) COMPARISON: No prior [facility] exams available for comparison. TECHNIQUE: CT of the head without contrast. Using automated exposure control and adjustment of the mA and/or kV according to patient size, radiation dose was kept as low as reasonably achievable to ob tain optimal diagnostic quality images. FINDINGS: Cerebrum: The ventricles are normal for age. No evidence of midline shift, mass lesion, hemorrhage or acute infarction. No extraaxial fluid collections are seen. Posterior Fossa: The cerebellum and brainstem are intact. The 4th ventricle is midline. The cerebe llopontine angle is unremarkable. Extracranial: The visualized portion of the orbits is intact. Skull: The calvaria is intact. No evidence of skull fracture. CONCLUSION: 1. Negative noncontrast CT Electronically signed by: Tan Conti MD 03/04/2018 2:15 PM EDT
[2018-03-04 14:17] LABS: TOTAL BILIRUBIN ADULT 0.5 MG/DL (0.2-1.0); TOTAL PROTEIN 6.8 GM/DL (6.4-8.2)
[2018-03-04 14:18] LABS: ALKALINE PHOSPHATASE 89 U/L (45-117)
[2018-03-04 14:20] LABS: TROPONIN I 0.04 NG/ML (0.02-0.05)
[2018-03-04 14:23] LABS: PROTHROMBIN TIME - PATIENT 10.5 SEC (9.8-11.6)
[2018-03-04 14:28] LABS: AUTOMATED NEUTROPHIL # 6.7 TH/MM3 (1.8-7.7); BASOPHIL # 0.1 TH/MM3 (0-0.2); BASOPHIL % 0.8 % (0.0-2.0); EOSINOPHIL # 0.1 TH/MM3 (0-0.4); HEMATOCRIT 46.8 % (39.0-51.0); HEMOGLOBIN 15.8 GM/DL (13.0-17.0); LYMPH % 19.7 % (9.0-44.0); LYMPHOCYTE # 1.8 TH/MM3 (1.0-4.8); MEAN CORPUSCULAR HEMOGLOBIN 30.7 PG (27.0-34.0); MEAN CORPUSCULAR HGB CONC 33.7 % (32.0-36.0); MEAN PLATELET VOLUME 8.4 FL (7.0-11.0); MONO % 7.8 % (0.0-8.0); MONOCYTE # 0.7 TH/MM3 (0-0.9); NEUT % 70.7 % (16.0-70.0); PLATELET COUNT 284 TH/MM3 (150-450); RED BLOOD COUNT 5.14 MIL/MM3 (4.50-5.90); RED CELL DISTRIBUTION WIDTH 16.5 % (11.6-17.2); WHITE BLOOD COUNT 9.4 TH/MM3 (4.0-11.0)
[2018-03-04 14:47] LABS: BILIRUBIN, URINE NEG (NEG); BLOOD, URINE NEG (NEG); GLUCOSE,URINE NEG (NEG); KETONE, URINE NEG (NEG); NITRITE,URINE NEG (NEG); URINE COLOR YELLOW (YELLW/STRAW); URINE LEUKOCYTE ESTERASE NEG (NEG)
[2018-03-04 15:02] LABS: RBC, URINE 0-3 /hpf (0-3); SQUAMOUS EPITHELIAL CELL URINE 0-5 /hpf (0-5)
[2018-03-04 15:29] VITALS: BP 118/81; PULSE 70; RESP 16; O2SAT 96
[2018-03-04 15:33] LABS: ACETAMINOPHEN LESS THAN 2.0 MCG/ML (10.0-30.0)
[2018-03-04 16:31] VITALS: BP 118/78
[2018-03-04] MEDS ORDERED: SODIUM CHLORIDE 0.9% FLUSH 10 ML FLUSH IV FLUSH PRN (17:15)
[2018-03-04] MEDS ORDERED: ENALAPRILAT 1.25 MG/ML VIAL IV PUSH PRN (17:15)
[2018-03-04] MEDS ORDERED: ALBUTEROL SULFATE 90 MCG/ACT HFA 8 GM INHALER INH PRN (17:15)
[2018-03-04 17:40] VITALS: BP 141/82; PULSE 73; RESP 20; TEMP 97.1; O2SAT 97
[2018-03-04 18:02] VITALS: PULSE 75
[2018-03-04 18:15] LABS: TROPONIN I 0.04 NG/ML (0.02-0.05)
--- NOTE | 2018-03-04 18:15 | MH ---
cc: Poly Carballo MD DATE OF ADMISSION: 03/04/2018 ADMISSION DIAGNOSIS: Weakness and decreased vision. HISTORY OF PRESENT ILLNESS: The patient is a 52-year-old gentleman who states he was sitting at a friend's house today, in the afternoon around lunchtime, visiting with his friend, when he said that suddenly he developed pain behind his left eye that he felt was right behind his eyeball. He also felt that it went down a little bit down his cheek. It sounds like he felt a little bit disoriented when this happened and foggy or unclear. He says that when he looked to the right, he felt like his vision was diminished, that things were in a darker shadow as compared to when he looked to the left. He describes a sensation of not feeling quite right. He felt like he would not be able to stand up, that if he did, he would be unsteady, but he denies any actual weakness in any extremity or difficulty with speech, even though his who answered the phone call from him said that he just seemed to hesitate when he spoke. He describes like a transient type of confusion. He did say he had some tingling at the tips of his left fingers when this occurred as well. He felt too weak to drive and she came up to pick him up and brought him to the emergency room. By the time he had arrived, his eye pain and visual changes seemed to have improved significantly. He states he has never had anything like this before. He did have a very small breakfast this morning, just some pudding. He really had not had lunch because he was anticipating having lunch with his friend. He has never had episodes of low sugars. He does not normally suffer from headaches or migraines. He has been under increased stress lately. He has some circulatory issues with his right lower extremity and has seen Dr. Loco for possible surgical intervention. He has not been able to work secondary to this and this has added stress and anxiety, but he does not tell me that he was feeling any increased stress or anxiety at the moment that this was occurring. At the time that I see him, most of his symptoms seemed to be resolved, except for some residual discomfort behind his left eye, which he describes as minimal. He no longer has visual changes. PAST MEDICAL HISTORY: Significant for atrial fibrillation according to his , peripheral vascular disease, hyperlipidemia. He does say that he has sleep apnea. He does have insomnia and review of his medication list shows medications used to treat anxiety. He also does have a history of COPD. PAST SURGICAL HISTORY: Includes right femoral popliteal bypass. He has had sinus surgery as well. ALLERGIES: HE IS NOT ALLERGIC TO ANYTHING. MEDICATIONS: He currently takes includes albuterol inhaler as needed, he is on Eliquis 5 mg twice a day, Crestor 20 mg daily, fish oil, metoprolol 25 mg twice a day, doxepin 75 mg daily, diazepam 10 mg at bedtime, potassium chloride 20 mEq daily, triamterene/hydrochlorothiazide 37.5/25 one tablet daily, pantoprazole 40 mg 1 tablet daily and vitamin D3 5000 units daily. HABITS: He no longer smokes, but he used to smoke I would say approximately a pack a day for approximately 30 years. He stopped around 7 years ago. He states he consumes alcohol just occasionally. SOCIAL HISTORY: He is and his is here at his bedside. 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 He tells me that he has not worked since December, since he started having problems with his legs and the possible need for surgery. REVIEW OF SYSTEMS: He states he has lost a little bit of weight and has not been sleeping well because of the discomfort in his leg, so he has not really been using his sleep apnea mask, as he has been sleeping on the sofa, but he feels he is eating, but he feels that he is actually eating less food to feel full. No problems with his bowels at the present time. He denies any chest pain or recent episodes of palpitations. No shortness of breath. He denies any problems urinating. He does have pain in that right lower extremity when he ambulates, but he does tell me that he does try to walk in order to improve circulation as told by Dr. Loco. He will have swelling in his lower extremities for which he takes the medications. Incidentally, his tells me that he is on gabapentin as well now, but she does not have that on his medication list. I will need to discuss that with her. PHYSICAL EXAMINATION: VITAL SIGNS: Temperature is 97.9, pulse is 70, respirations 16, blood pressure is 137/87, pulse oximetry is 95% on room air. GENERAL: He is lying in the ER room, on the cot. He is alert and oriented. HEENT: He is normocephalic, atraumatic. EOM is intact. He is not having any visual difficulties currently. He has got moist oral mucosa. NECK: Supple, I am not hearing any bruits. LUNGS: Clear to auscultation bilaterally. No rhonchi, rales or wheezes. CARDIOVASCULAR: Heart is regular, he is not tachycardic. I hear no ectopy or murmurs. ABDOMEN: Has good bowel sounds in all 4 quadrants. No rebound or guarding. EXTREMITIES: Show no clubbing, cyanosis or edema. He does have some scars in the right lower extremity from prior surgeries. He does have some diminished pulses, but his feet still feel warm. No obvious ulcers. LABORATORY DATA: Was done when he came in showed a white count of 9.4, hemoglobin of 15.8, hematocrit of 46.8, platelet count of 284. Sodium was 138, with a potassium of 3.8, BUN was 9, creatinine was 1, glucose was 93. LFTs were not elevated. Initial CK was 64, with a troponin of 0.04. BNP was 17. Urine was negative. A toxicology was done and this was negative for salicylate, acetaminophen, alcohol. It was positive for benzodiazepine and cannabinoids. IMAGING: CT scan of the brain was done, which showed a negative noncontrast CT. ASSESSMENT AND PLAN: This is a 52-year-old gentleman presenting with episode of transient visual changes, confusion or weakness. At this point, because of his risk factors, he has been admitted for evaluation for possible transient ischemic attack. He is already on an anticoagulant, aspirin and statin, so we will continue all those medications. We will go ahead and order an MRI and MRA, as well as carotid ultrasounds. We did discuss that he also might be having some kind of migraine variant. I think he is still under a lot of stress at this point with the events that are occurring around him. He did just have a CT angiogram of the lower extremities yesterday in anticipation of meeting with Dr. Loco. In terms of the rest of his medications, we will continue these. Further recommendations as the case develops. Poly Carballo MD CAS/LYNN , 05:26 PM , 06:13 PM
[2018-03-04] MEDS: DOXEPIN HCL 25 MG CAP PO SCH (19:13)
[2018-03-04 20:00] VITALS: BP 145/85; PULSE 74; PULSE 76; RESP 20; TEMP 98.1; O2SAT 97
[2018-03-04] MEDS: SODIUM CHLORIDE 0.9% FLUSH 10 ML FLUSH IV FLUSH SCH (21:10)
[2018-03-04] MEDS: DIAZEPAM 10 MG TAB PO SCH (21:10)
[2018-03-04] MEDS: ATORVASTATIN 40 MG TAB PO SCH (21:10)
[2018-03-04] MEDS: METOPROLOL TARTRATE 25 MG TAB PO SCH (21:10)
[2018-03-04] MEDS: APIXABAN 5 MG TABLET PO SCH (21:10)
[2018-03-04 22:47] LABS: TROPONIN I 0.05 NG/ML (0.02-0.05)
[2018-03-05] VITALS: BP 114/72; PULSE 69; RESP 20; TEMP 97.7; O2SAT 95
[2018-03-05 04:00] VITALS: BP 110/73; PULSE 74; RESP 20; TEMP 97.1; O2SAT 94
[2018-03-05 06:36] LABS: TROPONIN I 0.06 NG/ML (0.02-0.05)
[2018-03-05 08:00] VITALS: BP 111/73; PULSE 72; RESP 16; TEMP 97.8; O2SAT 95
[2018-03-05 08:00] LABS: CHOLESTEROL/ HDL RATIO 5.65 RATIO; HDL CHOLESTEROL 26.7 MG/DL (40.0-60.0)
[2018-03-05] MEDS ORDERED: NON-FORMULARY DRUG (Fish Oil-Cholecalciferol (Fish Oil + D3) 1 CAP) PO SCH (09:00)
[2018-03-05] MEDS: METOPROLOL TARTRATE 25 MG TAB PO SCH ×2 (09:18→21:25)
[2018-03-05] MEDS: APIXABAN 5 MG TABLET PO SCH (09:18)
[2018-03-05] MEDS: CHOLECALCIFEROL (VIT D3) 5000 UNIT CAP PO SCH (09:18)
[2018-03-05] MEDS: PANTOPRAZOLE SOD 40 MG DELAYED RELEASE TAB PO SCH (09:18)
[2018-03-05] MEDS: POTASSIUM CHLORIDE 20 MEQ CONTROLLED RELEASE TAB PO SCH (09:18)
[2018-03-05] MEDS: SODIUM CHLORIDE 0.9% FLUSH 10 ML FLUSH IV FLUSH SCH ×2 (09:19→21:24)
[2018-03-05] MEDS: DOXEPIN HCL 25 MG CAP PO SCH (09:23)
[2018-03-05] MEDS: TRIAMTERENE/HCTZ 37.5 MG/25 MG TAB PO SCH (09:29)
--- NOTE | 2018-03-05 09:45 | RADRPT ---
EXAM DATE: 03/05/2018 9:24 AM EDT AGE/SEX: 52 years / Male INDICATIONS: Cerebrovascular accident. CLINICAL DATA: This is the patient's initial encounter. Patient reports that signs and symptoms have been present for 2 days and indicates a pain score of 1/10. MEDICAL/SURGICAL HISTORY: Hypercholesterolemia. Peripheral vascular disease. HTN. AFib. Mild m yocardial infarction. COPD. Sleep apnea. GERD. Depression. Anxiety. Anticoagulant therapy, [place]. . Cardiac loop placed. Right femoral popliteal surgery. Nose surgery for blockage. COMPARISON: No prior [place] exams available for comparison. No external comparison. VELOCITY PARAMETERS: ICA/CCA Ratio: Right 0.8 , Left 0.7 ICA: Right 87 cm/sec, Left 72 cm/sec CCA: Right 104 cm/sec, Left 102 cm/sec ECA: Right 111 cm/sec, Left 114 cm/sec Vertebral: Right 48 cm/sec antegrade, Left 61 cm/sec antegrade FINDINGS: Right Carotid: No significant stenosis is visualized. Mild calcific plaque is present. The waveforms are within normal limits. Left Carotid: No significant stenosis is visualized. Calcific plaque. The waveforms are within ct l limits. Other: None. CONCLUSION: 1. Right Internal Carotid Artery: Mild calcific plaque with no evidence of stenosis. 2. Left Internal Carotid Artery: Mild calcific plaque with no evidence of stenosis. Electronically signed by: Tan Conti MD 03/05/2018 9:44 AM EDT
[2018-03-05 12:00] VITALS: BP 92/52; PULSE 65; RESP 16; TEMP 96.5; O2SAT 95
--- NOTE | 2018-03-05 13:49 | HHI.PR ---
Subjective Remarks no more visual changes Objective Vitals Vital Signs Date Time Temp Pulse Resp B/P (MAP) Pulse Ox O2 Delivery O2 Flow Rate FiO2 03/05/18 08:00 97.8 72 16 111/73 (86) 95 03/05/18 04:00 97.1 74 20 110/73 (85) 94 03/05/18 00:00 97.7 69 20 114/72 (86) 95 03/04/18 20:00 74 03/04/18 20:00 98.1 76 20 145/85 (105) 97 03/04/18 18:02 75 03/04/18 17:40 97.1 73 20 141/82 (101) 97 03/04/18 16:31 78 16 118/78 (91) 97 03/04/18 15:29 70 16 118/81 (93) 96 Room Air Result Diagram: 03/04/18 1325 03/04/18 1325 Other Results Last Impressions Carotid Artery Ultrasound 03/05/18 0000 Signed Impressions: CONCLUSION: 1. Right Internal Carotid Artery: Mild calcific plaque with no evidence of dalia nosis. 2. Left Internal Carotid Artery: Mild calcific plaque with no evidence of sten osis. Head CT 03/04/18 1331 Signed Impressions: CONCLUSION: 1. Negative noncontrast CT Objective Remarks sleeping n/a eom intact lungs cta heart rrr no murmur ext no edema A/P Problem List: (1) Visual changes ICD Codes: H53.9 - Unspecified visual disturbance Plan: transient visual changes with ocular pain and numbness in left fingertips , admitted for possible TIA vs possible migraine mri pending he is already on statin, eliquis asprin for his other comorbid conditions and no longer smokes (2) PVD (peripheral vascular disease) ICD Codes: I73.9 - Peripheral vascular disease, unspecified Status: Chronic Plan: cont home medications including eliquis (3) Hyperlipidemia ICD Codes: E78.5 - Hyperlipidemia, unspecified Plan: controlled on Poly Nicole MD Mar 05, 2018 13:49
--- NOTE | 2018-03-05 14:42 | EKG ---
Date Performed: 03/04/2018 Time Performed: 13:48:56 PTAGE: 52 years EKG: Sinus rhythm POSSIBLE RIGHT VENTRICULAR CONDUCTION DELAY BORDERLINE ECG Since the PREVIOUS TRACING , no significant change noted PREVIOUS TRACIN12/12/2016 02.56 DOCTOR: Paul Gonzalez Interpretating Date/Time 03/05/2018 14:40:57
--- NOTE | 2018-03-05 15:13 | RADRPT ---
EXAM DATE: 03/05/2018 3:02 PM EDT AGE/SEX: 52 years / Male INDICATIONS: Stroke. Confusion with slurred speech and upper arm weakness. CLINICAL DATA: This is the patient's initial encounter. Patient reports that signs and symptoms have been present for 2 days and indicates a pain score of 2/10. MEDICAL/SURGICAL HISTORY: Hypercholesterolemia. Hypertension. . Medtronic loop recorder, Femor al leg bypass. COMPARISON: No prior [place] exams available for comparison. TECHNIQUE: 3D [id number] MRA was performed. Source images, multiplanar STS MIP, and 3D volum e MIP reconstructions were reviewed. FINDINGS: There is excellent visualization of the major intracranial arteries out to the second-order branch ve ssels. There is no evidence for aneurysm, vessel truncation or stenosis, and no evidence for vascula r malformation. Right posterior cerebral artery arises from the anterior circulation, normal variant CONCLUSION: 1. Negative for major branch vessel occlusion. Electronically signed by: Asher Quijano MD 03/05/2018 3:12 PM EDT
--- NOTE | 2018-03-05 15:17 | ECHRPT ---
Indication: CVA/TIA CONCLUSIONS The transthoracic study is normal by two-dimensional, color flow imaging and Doppler interrogation. BP: 110 / 73 HR: 74 Rhythm: Sinus MEASUREMENTS (Male / Female) Normal Values Technical Quality:Fair 2D ECHO LV Diastolic Diameter PLAX 4.8 cm 4.2 - 5.9 / 3.9 - 5.3 cm LV Systolic Diameter PLAX 3.5 cm IVS Diastolic Thickness 0.9 cm 0.6 - 1.0 / 0.6 - 0.9 cm LVPW Diastolic Thickness 0.9 cm 0.6 - 1.0 / 0.6 - 0.9 cm LV Relative Wall Thickness 0.4 RV Internal Dim ED PLAX 2.7 cm LVOT Diameter 2.5 cm Aortic Root Diameter 3.3 cm LA Systolic Diameter LX 3.7 cm 3.0 - 4.0 / 2.7 - 3.8 cm M-MODE AV Cusp Separation MM 1.7 cm DOPPLER AV Peak Velocity 106.0 cm/s AV Peak Gradient 4.5 mmHg AV Mean Gradient 2.0 mmHg AV Velocity Time Integral 17.7 cm LVOT Peak Velocity 67.7 cm/s LVOT Peak Gradient 1.8 mmHg LVOT Velocity Time Integral 12.9 cm AV Area Cont Eq vti 3.6 cm AV Area Cont Eq pk 3.1 cm Mitral E Point Velocity 64.2 cm/s Mitral A Point Velocity 49.9 cm/s Mitral E to A Ratio 1.3 LV E' Lateral Velocity 9.8 cm/s Mitral E to LV E' Lateral Ratio 6.5 LV E' Septal Velocity 9.8 cm/s Mitral E to LV E' Septal Ratio 6.5 PV Peak Velocity 49.6 cm/s PV Peak Gradient 1.0 mmHg FINDINGS LEFT VENTRICLE Normal left ventricular size. Wall thickness is normal. The left ventricular systolic function is normal with an estimated ejection fraction in the range of 60-65%. RIGHT VENTRICLE Normal right ventricular size and systolic function. LEFT ATRIUM The left atrial size is normal. RIGHT ATRIUM The right atrial size is normal. ATRIAL SEPTUM No atrial level shunt is demonstrated by color flow Doppler interrogation. AORTA The aortic root and proximal ascending aorta are not well visualized. MITRAL VALVE Structurally normal mitral valve. No mitral valve stenosis or regurgitation. AORTIC VALVE Trileaflet aortic valve. No aortic valve stenosis or regurgitation. TRICUSPID VALVE No tricuspid regurgitation. PULMONARY VALVE No pulmonary valve regurgitation or stenosis. VESSELS The inferior vena cava is normal in size. PERICARDIUM No pericardial effusion. Francois Francis MD, FACC (Electronically Signed) Final Date:05 March 2018 15:16
[2018-03-05 16:00] VITALS: BP 105/70; PULSE 66; RESP 16; TEMP 97; O2SAT 95
[2018-03-05 16:30] LABS: HEMOGLOBIN A1C 5.7 % (4.3-6.0)
--- NOTE | 2018-03-05 16:55 | RADRPT ---
EXAM DATE: 03/05/2018 2:29 PM EDT AGE/SEX: 52 years / Male INDICATIONS: CVA. Confusion with slurred speech and upper arm weakness. CLINICAL DATA: This is the patient's initial encounter. Patient reports that signs and symptoms have been present for 2 days and indicates a pain score of 2/10. MEDICAL/SURGICAL HISTORY: Hypercholesterolemia. Hypertension. . Medtronic loop recorder, Femor al leg bypass. COMPARISON: POI, CTA AORTA W/ RUNOFF, 03/03/2018. . TECHNIQUE: Multiplanar, multisequence examination of the brain was performed without contrast. FINDINGS: Diffusion restricted images demonstrate small, scattered areas of abnormal diffusion signal distribut ed throughout both hemispheres, involving the basal ganglia on the left and the right cerebellar ce sphere. Findings would be consistent with multiple small areas of cortical infarct. There are multipl e vascular territories involved suggesting probability of an embolic infarcts. Sagittal T1-weighted images demonstrate normal formation of the corpus callosum and midline structure s. The cerebellar tonsils are in their appropriate location. The ventricular system is normal in size and configuration. No abnormal extra-axial fluid collections are seen. No mass lesion is identified. No acute intraparenchymal hemorrhage is present. CONCLUSION: 1. There are numerous small areas of abnormal diffusion signal seen within the parietal cortex bilat erally, the left occipital cortex, the basal ganglia on the left and the right cerebellar hemisphere. Findings would be consistent with multiple areas of cortical infarct. The multiple vascular territor ies involved would suggest embolic infarcts. Electronically signed by: Wil Quijano MD 03/05/2018 4:54 PM EDT
[2018-03-05 20:00] VITALS: BP 110/72; PULSE 58; PULSE 63; RESP 18; TEMP 96.7; O2SAT 96
[2018-03-05] MEDS: DIAZEPAM 10 MG TAB PO SCH (21:24)
[2018-03-05] MEDS: ACETAMINOPHEN 500 MG CPLT PO PRN (21:24)
[2018-03-05] MEDS: ATORVASTATIN 40 MG TAB PO SCH (21:25)
[2018-03-06] VITALS (8 sets, daily range): BP systolic 91–116; BP diastolic 55–74; PULSE 60–75; RESP 18–20; TEMP 96.1–98.1; O2SAT 95–96
[2018-03-06] MEDS: ACETAMINOPHEN 500 MG CPLT PO PRN (03:15)
--- NOTE | 2018-03-06 06:18 | HHI.PR ---
Subjective Remarks Overall feeling fine. Has been ambulating in the room to his restroom on his own. No more visual disturbance. Denies recent fever or rash or any specific unusual joint pains. Denies any history of IV drug abuse or cocaine use. Objective Vitals Vital Signs Date Time Temp Pulse Resp B/P (MAP) Pulse Ox O2 Delivery O2 Flow Rate FiO2 03/06/18 04:15 18 03/06/18 00:00 96.1 60 18 91/63 (72) 96 03/05/18 20:00 63 03/05/18 20:00 96.7 58 18 110/72 (85) 96 03/05/18 16:00 97.0 66 16 105/70 (82) 95 03/05/18 12:00 96.5 65 16 92/52 (65) 95 03/05/18 08:00 97.8 72 16 111/73 (86) 95 GENERAL: Sleeping, arouses to voice. Alert and oriented. Cooperative. No acute distress peer SKIN: Warm and dry. No petechiae or any splinter hemorrhages noted on exam. HEAD: Normocephalic. EYES: No scleral icterus. No injection or drainage. Extraocular motions intact. Pupils equally round and reactive. NECK: Supple, trachea midline. No JVD or lymphadenopathy. CARDIOVASCULAR: Regular rate and rhythm without murmurs, gallops, or rubs. Decreased peripheral pulses noted in right distal lower extremity. RESPIRATORY: Breath sounds equal bilaterally. No accessory muscle use. GASTROINTESTINAL: Abdomen soft, non-tender, nondistended. MUSCULOSKELETAL: No cyanosis, or edema. Moves all extremities to command. 5 out of 5 strength 4. No [place] lesions or other specific tenderness to palpation. BACK: No CVA tenderness. NEURO: No focal deficits. Cranial nerves II through XII grossly intact. Result Diagram: 03/04/18 1325 03/04/18 1325 Imaging Last 72 hours Impressions Head Magnetic Resonance Angiography 03/05/18 0000 Signed Impressions: CONCLUSION: 1. Negative for major branch vessel occlusion. Carotid Artery Ultrasound 03/05/18 0000 Signed Impressions: CONCLUSION: 1. Right Internal Carotid Artery: Mild calcific plaque with no evidence of dalia nosis. 2. Left Internal Carotid Artery: Mild calcific plaque with no evidence of sten osis. Brain MRI 03/05/18 0000 Signed Impressions: CONCLUSION: 1. There are numerous small areas of abnormal diffusion signal seen within the parietal cortex bilaterally, the left occipital cortex, the basal ganglia on t he left and the right cerebellar hemisphere. Findings would be consistent with multiple areas of cortical infarct. The multiple vascular territories involved would suggest embolic infarcts. Head CT 03/04/18 1331 Signed Impressions: CONCLUSION: 1. Negative noncontrast CT Urinary Catheter: No Vascular Central Line Catheter: No A/P Problem List: (1) Stroke due to embolism ICD Codes: I63.9 - Cerebral infarction, unspecified Status: Acute Plan: MRI demonstrates multiple small embolic events and several vascular territories. Cardiology and neurology consulted. Case discussed with Dr. Snider yesterday after MRI report generated. (2) Visual changes ICD Codes: H53.9 - Unspecified visual disturbance Plan: transient visual changes with ocular pain and numbness in left fingertips , admitted for possible TIA vs possible migraine MRI report reviewed and discussed with Dr. Snider yesterday. Discussed with patient this morning. Anticoagulation changed. Dr. Snider discussed the case reportedly with Dr. Rsoas from neurology yesterday. I have also placed a cardiology consult per discussion with Dr. Snider. Patient appears quite stable from a neurologic standpoint. Unclear etiology to the multiple small emboli noted. No fevers or other indication of immediate infectious etiology. (3) PVD (peripheral vascular disease) ICD Codes: I73.9 - Peripheral vascular disease, unspecified Status: Chronic Plan: cont home medications; Eliquis has been stopped per Dr. Snider discussion with neurology. Lovenox and warfarin will be initiated today per Dr. Snider report. (4) Hyperlipidemia ICD Codes: E78.5 - Hyperlipidemia, unspecified Plan: Continue medication. Relatively well controlled on crestor Discharge Planning Will depend on further evaluation by specialist. May need SALLIE. Flynn Patel MD PhD Mar 06, 2018 06:18
[2018-03-06 08:28] LABS: PROTHROMBIN TIME - PATIENT 10.4 SEC (9.8-11.6)
--- NOTE | 2018-03-06 08:40 | PD.CONS ---
HPI Consult Requested By Primary Care Physician Dami Price D.O. History of Present Illness 52-year-old male with a past medical history of A. fib, PVD, HLD, COPD, insomnia who presented with vision changes and unsteady gait. The patient's brain MRI was suggestive of embolic CVA. The patient's symptoms have resolved and he is back to his neurologic baseline. He reports that he has been compliant with his Eliquis 5 mg twice daily. His transthoracic echocardiogram did not reveal any atrial level shunt. Carotid ultrasound with mild plaque and no stenosis bilaterally. Primary team discussed with neurology who recommended discontinuing Eliquis and changing to warfarin with Lovenox bridge. The patient denies any chest pain, shortness of breath, or palpitations. (Carlitos Mares) Review of Systems Negative except as stated in the HPI (Carlitos Mares) Past Family Social History Allergies: Coded Allergies: No Known Allergies (Unverified Adverse Reaction, Unknown, 03/04/18) Past Medical History A. fib, PVD, HLD, COPD, insomnia Past Surgical History Right femoropopliteal bypass Sinus surgery Reported Medications Reported Meds & Active Scripts Active Protonix (Pantoprazole Sodium) 40 Mg Tab 40 Mg PO DAILY Potassium Chloride ER (Potassium Chloride) 20 Meq Tab 20 Meq PO DAILY Reported Metoprolol Tartrate 25 Mg Tab 25 Mg PO BID Vitamin D3 (Cholecalciferol) 5,000 Unit Cap 5,000 Units PO DAILY Fish Oil + D3 (Fish Oil-Cholecalciferol) 1,200-1,000 Mg-Unit Cap 1 Cap PO DAILY Eliquis (Apixaban) 5 Mg Tab 5 Mg PO BID Diazepam 10 Mg Tab 10 Mg PO HS Proair Hfa 8.5 GM Inh (Albuterol Sulfate) 90 Mcg/Act Aer 2 Puff INH Q4-6H PRN 108 mcg/actuation Rosuvastatin (Rosuvastatin Calcium) 20 Mg Tab 20 Mg PO DAILY Triamterene-Hydrochlorothiazide 37.5-25 Mg Tab 1 Tab PO DAILY Doxepin (Doxepin HCl) 75 Mg Cap 75 Mg PO DAILY Active Ordered Medications Current Medications Medications (Trade) Dose Ordered Sig/Hanh Route Start Time Stop Time Status Last Admin (NS Flush) 2 ml BID IV FLUSH 03/04/18 21:00 03/05/18 21:24 (NS Flush) 2 ml UNSCH PRN IV FLUSH 03/04/18 17:15 (Vasotec Inj) 1.25 mg Q4H PRN IV PUSH 03/04/18 17:15 (Proair Hfa Inh) 2 puff Q6H PRN INH 03/04/18 17:15 (Vitamin D3) 5,000 units DAILY PO 03/05/18 09:00 03/05/18 09:18 (Valium) 10 mg HS PO 03/04/18 21:00 03/05/18 21:24 (SINEquan) 75 mg DAILY PO 03/04/18 18:00 03/05/18 09:23 (Lopressor) 25 mg BID PO 03/04/18 21:00 03/05/18 21:25 (Protonix) 40 mg DAILY PO 03/05/18 09:00 03/05/18 09:18 (KCl) 20 meq DAILY PO 03/05/18 09:00 03/05/18 09:18 (Maxzide 37.5-25 Mg) 1 tab DAILY PO 03/05/18 09:00 03/05/18 09:29 (Lipitor) 40 mg HS PO 03/04/18 21:00 03/05/18 21:25 (Lovenox Inj) 80 mg Q12H SQ 03/06/18 09:00 (Coumadin) 5 mg DAILY@1600 PO 03/06/18 16:00 (Coumadin Booklet) 1 ONCE ONCE OTHER 03/06/18 16:00 03/06/18 16:01 (Tylenol) 500 mg Q6H PRN PO 03/05/18 21:00 03/06/18 03:15 Social History [id number] smoking history, stopped 7 years ago Occasional alcohol use (Carlitos Mares) Physical Exam Vital Signs Vital Signs Date Time Temp Pulse Resp B/P (MAP) Pulse Ox O2 Delivery O2 Flow Rate FiO2 03/06/18 04:15 18 03/06/18 04:00 97.0 72 18 116/55 (75) 96 03/06/18 00:00 96.1 60 18 91/63 (72) 96 03/05/18 20:00 63 03/05/18 20:00 96.7 58 18 110/72 (85) 96 6/1/18 16:00 97.0 66 16 105/70 (82) 95 03/05/18 12:00 96.5 65 16 92/52 (65) 95 Physical Exam GENERAL: Well-developed well-nourished. In no acute distress. NECK: No carotid bruits. No JVD. CARDIOVASCULAR: Regular rate and rhythm. No murmur appreciated. RESPIRATORY: No accessory muscle use. Clear to auscultation. Breath sounds equal bilaterally. MUSCULOSKELETAL: No clubbing or cyanosis. No edema. NEUROLOGICAL: Awake and alert. Normal speech. Laboratory Laboratory Tests Test 03/06/18 06:35 Prothrombin Time 10.4 Prothromb Time International Ratio 1.0 (Carlitos Mares) Result Diagram: 03/04/18 1325 03/04/18 1325 Imaging Last Impressions Head Magnetic Resonance Angiography 03/05/18 0000 Signed Impressions: CONCLUSION: 1. Negative for major branch vessel occlusion. Carotid Artery Ultrasound 03/05/18 0000 Signed Impressions: CONCLUSION: 1. Right Internal Carotid Artery: Mild calcific plaque with no evidence of dalia nosis. 2. Left Internal Carotid Artery: Mild calcific plaque with no evidence of sten osis. Brain MRI 03/05/18 0000 Signed Impressions: CONCLUSION: 1. There are numerous small areas of abnormal diffusion signal seen within the parietal cortex bilaterally, the left occipital cortex, the basal ganglia on t he left and the right cerebellar hemisphere. Findings would be consistent with multiple areas of cortical infarct. The multiple vascular territories involved would suggest embolic infarcts. Head CT 03/04/18 1331 Signed Impressions: CONCLUSION: 1. Negative noncontrast CT (Carlitos Mares) Assessment and Plan Assessment and Plan 52-year-old male with a past medical history of A. fib, PVD, HLD, COPD, insomnia who presented with vision changes and unsteady gait. The patient's brain MRI was suggestive of embolic CVA. The patient's symptoms have resolved and he is back to his neurologic baseline. He reports that he has been compliant with his Eliquis 5 mg twice daily. Primary team discussed with neurology who recommended discontinuing Eliquis and changing to warfarin with Lovenox bridge. Acute embolic CVA with history of paroxysmal atrial fibrillation: Agree with changing to warfarin. Continue Lovenox bridge for now. We will plan for SALLIE, transfer to the [facility]. Continue statin. Paroxysmal atrial fibrillation: Currently NSR. Continue metoprolol for rate control. Discussed Condition With Patient, Dr. Francis (Carlitos Mares) Assessment and Plan recurrent CVA on anticoagulation with novel agent convert to lovenox -> coumadin h/o atrial fibrillation MRI with embolic phenomenon Plan for SALLIE to rule out valvular abnormality with cardioembolism or paradoxical systemic embolization given younger age and anticoagulation failure (and normal sinus rhythm) (Francois Francis MD) Carlitos Mares Mar 06, 2018 08:40 Francois Francis MD Mar 06, 2018 09:21
--- NOTE | 2018-03-06 09:38 | MB ---
cc: Pamela Rosas MD DATE: 03/06/2018 REASON FOR CONSULTATION: Stroke. HISTORY OF PRESENT ILLNESS: This is a pleasant 52-year-old man who was in his usual state of health when he was at the friend's house when he started having some visual changes, pain behind his left eye, then subsequently blurry with some visual loss that resolved and then started in the right eye. No real weakness. Maybe a little bit disoriented. A little bit of unsteadiness that occurred. He feels back to baseline. Apparently, he was brought in to the emergency room by someone. He had an MRI of the brain performed. PAST MEDICAL HISTORY: He has an extensive past medical history of peripheral vascular disease, occlusion in the right leg, history of atrial fibrillation. He has a loop recorder, also history of sleep apnea and insomnia. PAST SURGICAL HISTORY: Right femoral popliteal bypass and sinus surgery. MEDICATIONS: He is on Eliquis 5 mg twice a day, Crestor, metoprolol, doxepin, diazepam, potassium, triamterene/hydrochlorothiazide, pantoprazole, and vitamin D3. SOCIAL HISTORY: He used to smoke up to a pack a day for 30 years, stopped about 7 years ago. He is a social drinker, , employed. PHYSICAL EXAMINATION: VITAL SIGNS: Temperature is 97, pulse 72, respiratory rate 18, blood pressure 116/55. NECK: Supple. No appreciable carotid bruits. HEART: Currently is regular. NEUROLOGIC: He is awake, alert. He is oriented. He is fluent. His pupils are reactive. Visual alvares are full. Face symmetric. Tongue midline. Motor roman, he does not exhibit any drift or leg lag. [id number] no past pointing. DTRs are symmetrical. Toes withdraw. Random fine motor movements are intact as well. Gait is withheld. LABORATORY DATA: Reviewed. CBC is unremarkable. His chemistry, his troponin yesterday morning was 0.06, triglycerides 162, cholesterol 151, LDL 92, HDL 26.7. Tox screen is positive for benzodiazepines and cannabinoids. Urine is unremarkable. IMAGING STUDIES: Brain MRI shows numerous small areas of diffusion weighted abnormality within the parietal cortex bilaterally, left occipital basal ganglia, right cerebellar, seems there is more on the left per my view, then on the right. These are acute embolic looking events. Carotid ultrasound shows mild plaque bilaterally. MRA did not show any major branch occlusion. ASSESSMENT AND PLAN: 1. A 52-year-old man with a history of atrial fibrillation. I believe he had an ablation by Dr. Dao, now has a loop recorder. 2. What looks like embolic strokes on MRI. Recommend cardiology to see the patient. They will probably do a transesophageal echo Thursday. I would consider keeping him on instead of Eliquis on warfarin with Lovenox bridge unless cardiology has any other recommendations. Does not have a fever or chills. There is no IV drug use. I doubt this is an endocarditis, however, because his 2-D echo transthoracic did not show anything acute, or any shunting or vegetations. Continue his other home medications. Have PT evaluate him and continue current care per cardiology. MD SHARATH Ling/ALEC , 09:01 AM , 09:37 AM
[2018-03-06] MEDS: SODIUM CHLORIDE 0.9% FLUSH 10 ML FLUSH IV FLUSH SCH ×2 (09:46→23:13)
[2018-03-06] MEDS: POTASSIUM CHLORIDE 20 MEQ CONTROLLED RELEASE TAB PO SCH (09:46)
[2018-03-06] MEDS: METOPROLOL TARTRATE 25 MG TAB PO SCH ×2 (09:46→23:09)
[2018-03-06] MEDS: PANTOPRAZOLE SOD 40 MG DELAYED RELEASE TAB PO SCH (09:47)
[2018-03-06] MEDS: TRIAMTERENE/HCTZ 37.5 MG/25 MG TAB PO SCH (09:47)
[2018-03-06] MEDS: CHOLECALCIFEROL (VIT D3) 5000 UNIT CAP PO SCH (09:48)
[2018-03-06] MEDS: DOXEPIN HCL 25 MG CAP PO SCH (09:48)
[2018-03-06] MEDS: ENOXAPARIN SODIUM 80 MG/0.8 ML SYRINGE SQ SCH ×2 (10:00→23:10)
[2018-03-06] MEDS: WARFARIN SOD 5 MG TAB PO SCH (16:32)
[2018-03-06] MEDS: DIAZEPAM 10 MG TAB PO SCH (23:09)
[2018-03-06] MEDS: ATORVASTATIN 40 MG TAB PO SCH (23:09)
[2018-03-07] VITALS (11 sets, daily range): BP systolic 107–130; BP diastolic 60–76; PULSE 69–112; RESP 16–20; TEMP 97.2–99.1; O2SAT 95–98
--- NOTE | 2018-03-07 08:18 | PD.CARD.PN ---
Subjective Subjective Remarks Occasionally has some visual floaters. Has been ambulating in the room with improvement in gait. No chest pain, shortness breath, palpitations. Planning for SALLIE in the a.m., all questions answered. Objective Medications Current Medications Medications (Trade) Dose Ordered Sig/Hanh Route Start Time Stop Time Status Last Admin (NS Flush) 2 ml BID IV FLUSH 03/04/18 21:00 03/06/18 23:13 (NS Flush) 2 ml UNSCH PRN IV FLUSH 03/04/18 17:15 (Vasotec Inj) 1.25 mg Q4H PRN IV PUSH 03/04/18 17:15 (Proair Hfa Inh) 2 puff Q6H PRN INH 03/04/18 17:15 (Vitamin D3) 5,000 units DAILY PO 03/05/18 09:00 03/06/18 09:48 (Valium) 10 mg HS PO 03/04/18 21:00 03/06/18 23:09 (SINEquan) 75 mg DAILY PO 03/04/18 18:00 03/06/18 09:48 (Lopressor) 25 mg BID PO 03/04/18 21:00 03/06/18 23:09 (Protonix) 40 mg DAILY PO 03/05/18 09:00 03/06/18 09:47 (KCl) 20 meq DAILY PO 03/05/18 09:00 03/06/18 09:46 (Maxzide 37.5-25 Mg) 1 tab DAILY PO 03/05/18 09:00 03/06/18 09:47 (Lovenox Inj) 80 mg Q12H SQ 03/06/18 09:00 03/06/18 23:10 (Coumadin) 5 mg DAILY@1600 PO 03/06/18 16:00 03/06/18 16:32 (Tylenol) 500 mg Q6H PRN PO 03/05/18 21:00 03/06/18 03:15 (Lipitor) 80 mg HS PO 03/07/18 21:00 UNV Vital Signs / I&O Vital Signs Date Time Temp Pulse Resp B/P (MAP) Pulse Ox O2 Delivery O2 Flow Rate FiO2 03/07/18 05:05 97.2 75 20 125/74 (91) 95 03/07/18 04:00 73 03/07/18 00:43 98.1 71 20 124/76 (92) 97 03/06/18 20:14 98.1 75 20 112/70 (84) 95 03/06/18 15:53 97.6 64 20 102/64 (77) 95 03/06/18 11:00 97.2 69 20 107/67 (80) 95 03/06/18 09:43 110/70 (83) I/O 03/06/18 03/06/18 03/06/18 03/07/18 03/07/18 03/07/18 07:00 15:00 23:00 07:00 15:00 23:00 Intake Total 480 ml 180 ml 240 ml Output Total 400 ml Balance 80 ml 180 ml 240 ml Intake Oral 480 ml 180 ml 240 ml Output Urine Total 400 ml # Voids 1 2 # Bowel Movements 0 1 5 Physical Exam GENERAL: Well-developed well-nourished. In no acute distress. NECK: No carotid bruits. No JVD. CARDIOVASCULAR: Regular rate and rhythm. No murmur appreciated. RESPIRATORY: No accessory muscle use. Clear to auscultation. Breath sounds equal bilaterally. MUSCULOSKELETAL: No clubbing or cyanosis. No edema. NEUROLOGICAL: Awake and alert. Normal speech. Laboratory Laboratory Tests Test 03/07/18 05:44 Imaging Last Impressions Head Magnetic Resonance Angiography 03/05/18 0000 Signed Impressions: CONCLUSION: 1. Negative for major branch vessel occlusion. Carotid Artery Ultrasound 03/05/18 0000 Signed Impressions: CONCLUSION: 1. Right Internal Carotid Artery: Mild calcific plaque with no evidence of dalia nosis. 2. Left Internal Carotid Artery: Mild calcific plaque with no evidence of sten osis. Brain MRI 03/05/18 0000 Signed Impressions: CONCLUSION: 1. There are numerous small areas of abnormal diffusion signal seen within the parietal cortex bilaterally, the left occipital cortex, the basal ganglia on t he left and the right cerebellar hemisphere. Findings would be consistent with multiple areas of cortical infarct. The multiple vascular territories involved would suggest embolic infarcts. Head CT 03/04/18 1331 Signed Impressions: CONCLUSION: 1. Negative noncontrast CT Assessment and Plan Assessment and Plan 52-year-old male with a past medical history of A. fib, PVD, HLD, COPD, insomnia who presented with vision changes and unsteady gait. The patient's brain MRI was suggestive of embolic CVA. The patient's symptoms have resolved and he is back to his neurologic baseline. He reports that he has been compliant with his Eliquis 5 mg twice daily. Primary team discussed with neurology who recommended discontinuing Eliquis and changing to warfarin with Lovenox bridge. Acute embolic CVA with history of paroxysmal atrial fibrillation: Agree with changing to warfarin, continue Lovenox bridge for now. Discussed with neurology. Plan for SALLIE to rule out valvular abnormality with cardioembolism or paradoxical systemic embolization given younger age and anticoagulation failure (and normal sinus rhythm), Thursday a.m., n.p.o. after midnight. Paroxysmal atrial fibrillation: Currently NSR. Continue metoprolol for rate control. Hyperlipidemia: Lipid profile noted, not at goal for secondary prevention, increase statin. Carlitos Mares Mar 07, 2018 08:18
[2018-03-07 08:33] LABS: INTERNATIONAL NORMALIZED RATIO 1.1 RATIO; PROTHROMBIN TIME - PATIENT 11.5 SEC (9.8-11.6)
[2018-03-07] MEDS: CHOLECALCIFEROL (VIT D3) 5000 UNIT CAP PO SCH (08:40)
[2018-03-07] MEDS: PANTOPRAZOLE SOD 40 MG DELAYED RELEASE TAB PO SCH (08:40)
[2018-03-07] MEDS: METOPROLOL TARTRATE 25 MG TAB PO SCH ×2 (08:40→22:06)
[2018-03-07] MEDS: POTASSIUM CHLORIDE 20 MEQ CONTROLLED RELEASE TAB PO SCH (08:40)
[2018-03-07] MEDS: SODIUM CHLORIDE 0.9% FLUSH 10 ML FLUSH IV FLUSH SCH ×2 (08:41→22:07)
[2018-03-07] MEDS: ENOXAPARIN SODIUM 80 MG/0.8 ML SYRINGE SQ SCH ×2 (09:00→21:00)
[2018-03-07] MEDS: TRIAMTERENE/HCTZ 37.5 MG/25 MG TAB PO SCH (09:37)
[2018-03-07] MEDS: DOXEPIN HCL 25 MG CAP PO SCH (09:37)
--- NOTE | 2018-03-07 09:40 | HHI.PR ---
Subjective Remarks No new complaints Pt in NSR on tele Objective Vitals Vital Signs Date Time Temp Pulse Resp B/P (MAP) Pulse Ox O2 Delivery O2 Flow Rate FiO2 03/07/18 08:00 98.2 78 18 108/66 (80) 98 03/07/18 05:05 97.2 75 20 125/74 (91) 95 03/07/18 04:00 73 03/07/18 00:43 98.1 71 20 124/76 (92) 97 03/06/18 20:14 98.1 75 20 112/70 (84) 95 03/06/18 15:53 97.6 64 20 102/64 (77) 95 03/06/18 11:00 97.2 69 20 107/67 (80) 95 03/06/18 09:43 110/70 (83) Result Diagram: 03/04/18 1325 03/04/18 1325 Other Results Laboratory Tests Test 03/06/18 06:35 03/07/18 05:44 Prothrombin Time 10.4 SEC 11.5 SEC Prothromb Time International Ratio 1.0 RATIO 1.1 RATIO Imaging Last Impressions Head Magnetic Resonance Angiography 03/05/18 0000 Signed Impressions: CONCLUSION: 1. Negative for major branch vessel occlusion. Carotid Artery Ultrasound 03/05/18 0000 Signed Impressions: CONCLUSION: 1. Right Internal Carotid Artery: Mild calcific plaque with no evidence of dalia nosis. 2. Left Internal Carotid Artery: Mild calcific plaque with no evidence of sten osis. Brain MRI 03/05/18 0000 Signed Impressions: CONCLUSION: 1. There are numerous small areas of abnormal diffusion signal seen within the parietal cortex bilaterally, the left occipital cortex, the basal ganglia on t he left and the right cerebellar hemisphere. Findings would be consistent with multiple areas of cortical infarct. The multiple vascular territories involved would suggest embolic infarcts. Head CT 03/04/18 1331 Signed Impressions: CONCLUSION: 1. Negative noncontrast CT Objective Remarks General: NAD, AAOx3 Chest: CTA Cardiac: Regular Abd: +BS, soft ND/NT Ext: no edema A/P Problem List: (1) Stroke due to embolism ICD Codes: I63.9 - Cerebral infarction, unspecified Status: Acute Plan: Embolic CVA Visual changes - Pt is a 52 y/o male with paroxysmal A. fib, PVD, hyperlipidemia, FRANCOIS, and insomnia who [place] [facility] [place] with complaints of vision changes and unsteady gait. - Head CT was negative. - Brain MRI (03/05/18) --> numerous small areas of abnormal diffusion signal seen within the parietal cortex bilaterally, the left occipital cortex, the basal ganglia on the left and the right cerebellar hemisphere. Findings would be consistent with multiple areas of cortical infarct. The multiple vascular territories involved would suggest embolic infarcts. - MRA Brain (03/05/18) --> No major branch vessel occlusion - Carotid US (03/05/18) --> Mild calcific plaque with no evidence of stenosis of bilateral internal carotids. - Pt was has been on Eliquis 5 mg twice daily for his A. fib and was reportedly compliant. - Neurology is following and recommended discontinuing Eliquis and changing to warfarin with Lovenox bridge. - The patient's symptoms have resolved and he is back to his neurologic baseline. - The exact etiology for the pts embolic CVA is unclear. - No fevers or other indication of immediate infectious etiology. - Cardiology was consulted and pt is planned for SALLIE on 03/08/18 to rule out valvular abnormality with cardioembolism or paradoxical systemic embolization Paroxysmal atrial fibrillation - Currently NSR. - Continue metoprolol 25mg po BID - Pt is on Coumadin 5mg po daily with Lovenox bridge - INR 1.1 on 03/07/18 - Repeat INR in AM Hyperlipidemia - Lipid profile noted - Lipitor increased to 80mg po daily. (2) Visual changes ICD Codes: H53.9 - Unspecified visual disturbance (3) PVD (peripheral vascular disease) ICD Codes: I73.9 - Peripheral vascular disease, unspecified Status: Chronic (4) Hyperlipidemia ICD Codes: E78.5 - Hyperlipidemia, unspecified Assessment and Plan Patient examined. Assessment and plan formulated with Melanie Gao PA-C. I agree with the above. acute bilateral embolic cva's. afib. was on eliquis now on lovenox to coumadin. SALLIE tomorrow. Melanie Gao Mar 07, 2018 09:40 Blayne Perez MD Mar 07, 2018 12:28
[2018-03-07] MEDS: WARFARIN SOD 5 MG TAB PO SCH (16:50)
[2018-03-07] MEDS ORDERED: ATORVASTATIN 80 MG TAB PO SCH (21:00)
[2018-03-07] MEDS: DIAZEPAM 10 MG TAB PO SCH (22:07)
[2018-03-08 00:30] VITALS: BP 128/68; PULSE 70; RESP 17; TEMP 97.6; O2SAT 97
[2018-03-08 04:00] VITALS: PULSE 112; PULSE 66
[2018-03-08 04:20] VITALS: BP 120/68; PULSE 67; RESP 19; TEMP 98; O2SAT 98
[2018-03-08] MEDS: METOPROLOL TARTRATE 25 MG TAB PO SCH (07:50)
[2018-03-08] MEDS: SODIUM CHLORIDE 0.9% FLUSH 10 ML FLUSH IV FLUSH SCH (07:55)
--- NOTE | 2018-03-08 07:58 | PD.CARD.PN ---
Subjective Subjective Remarks patient reports new onset intermittent R upper and lower extremity numbness overnight. ambulating around his room well. no chest pain, sob, EDMOND or dysarthria. (Kasie Condon) Objective Medications Current Medications Medications (Trade) Dose Ordered Sig/Hanh Route Start Time Stop Time Status Last Admin (NS Flush) 2 ml BID IV FLUSH 03/04/18 21:00 03/07/18 22:07 (NS Flush) 2 ml UNSCH PRN IV FLUSH 03/04/18 17:15 (Vasotec Inj) 1.25 mg Q4H PRN IV PUSH 03/04/18 17:15 (Proair Hfa Inh) 2 puff Q6H PRN INH 03/04/18 17:15 (Vitamin D3) 5,000 units DAILY PO 03/05/18 09:00 03/07/18 08:40 (Valium) 10 mg HS PO 03/04/18 21:00 03/07/18 22:07 (SINEquan) 75 mg DAILY PO 03/04/18 18:00 03/07/18 09:37 (Lopressor) 25 mg BID PO 03/04/18 21:00 03/07/18 22:06 (Protonix) 40 mg DAILY PO 03/05/18 09:00 03/07/18 08:40 (KCl) 20 meq DAILY PO 03/05/18 09:00 03/07/18 08:40 (Maxzide 37.5-25 Mg) 1 tab DAILY PO 03/05/18 09:00 03/07/18 09:37 (Lovenox Inj) 80 mg Q12H SQ 03/06/18 09:00 03/07/18 09:00 (Coumadin) 5 mg DAILY@1600 PO 03/06/18 16:00 03/07/18 16:50 (Tylenol) 500 mg Q6H PRN PO 03/05/18 21:00 03/06/18 03:15 (Lipitor) 80 mg HS PO 03/07/18 21:00 03/07/18 22:07 Vital Signs / I&O Vital Signs Date Time Temp Pulse Resp B/P (MAP) Pulse Ox O2 Delivery O2 Flow Rate FiO2 03/08/18 04:20 98.0 67 19 120/68 (85) 98 03/08/18 04:00 66 03/08/18 00:30 97.6 70 17 128/68 (88) 97 03/07/18 21:50 98.0 75 16 130/60 (83) 96 03/07/18 20:00 112 03/07/18 16:02 101 03/07/18 16:00 97.9 84 18 119/76 (90) 96 03/07/18 12:32 75 03/07/18 12:00 99.1 80 18 107/72 (84) 97 03/07/18 10:04 69 03/07/18 08:00 98.2 78 18 108/66 (80) 98 I/O 03/07/18 03/07/18 03/07/18 03/08/18 03/08/18 03/08/18 07:00 15:00 23:00 07:00 15:00 23:00 Intake Total 800 ml 650 ml Balance 800 ml 650 ml Intake Oral 800 ml 650 ml # Voids 2 1 3 # Bowel Movements 0 0 Physical Exam GENERAL: SKIN: Warm and dry. HEAD: Atraumatic. Normocephalic. EYES: Pupils equal and round. No scleral icterus. ENT: No nasal bleeding or discharge. NECK: Trachea midline. No JVD. CARDIOVASCULAR: Regular rate and rhythm. no murmur RESPIRATORY: No accessory muscle use. Clear to auscultation. Breath sounds equal bilaterally. GASTROINTESTINAL: Abdomen soft, non-tender, nondistended. Hepatic and splenic margins not palpable. MUSCULOSKELETAL: Extremities without clubbing, cyanosis, or edema. No obvious deformities. NEUROLOGICAL: Awake and alert. No obvious cranial nerve deficits. Normal speech. PSYCHIATRIC: Appropriate mood and affect; insight and judgment normal. (Kasie Condon) Assessment and Plan Problem List: (1) Paroxysmal A-fib ICD Codes: I48.0 - Paroxysmal atrial fibrillation (2) Stroke due to embolism ICD Codes: I63.9 - Cerebral infarction, unspecified Status: Acute (3) Visual changes ICD Codes: H53.9 - Unspecified visual disturbance Assessment and Plan 52 yo WM with paroxysmal afib, PVD, COPD and HLD who presents with recurrent symptoms of CVA while on Eliquis. Vision changes and unsteady gait have improved but now experiencing R upper and lower extremity intermittent numbness overnight. CVA- embolic. recurrent symptoms while anticoagulated on NOAC. plan for SALLIE today to rule out valvular abnormality with cardioembolism or paradoxical systemic embolization given younger age and anticoagulation failure Eliquis changed to warfarin with lovenox bridge; INR pending this morning (INR goal 2.0-3.0) afib- paroxysmal. no events on telemetry overnight; remains in NSR. cont bb (Kasie Condon) Assessment and Plan --------- SALLIE negative MRI + CVA cardioembolic loop interrogation - multiple tachycardia events. lovenox to coumadin (Francois Francis MD) Kasie Condon Mar 08, 2018 07:58 Francois Francis MD Mar 08, 2018 13:27
[2018-03-08 08:00] VITALS: BP 130/84; PULSE 62; RESP 17; TEMP 98.8; O2SAT 97
[2018-03-08] MEDS ORDERED: CHLORHEXIDINE GLUCONATE 2 % 1 PACK (2 CLOTHS) TOPICAL PRN (08:30)
[2018-03-08] MEDS ORDERED: METOPROLOL TARTRATE 25 MG TAB PO PRN (08:30)
[2018-03-08] MEDS ORDERED: SODIUM CHLORID 0.9% 500 ML IV PRN (08:30)
[2018-03-08] MEDS ORDERED: POVIDONE IODINE 5% (ANTISEPSIS KIT) 4 APPLICATIONS EACH NARE PRN (08:30)
[2018-03-08] MEDS ORDERED: LACTATED RINGER'S 1000 ML IV PRN (08:30)
[2018-03-08] MEDS: CHOLECALCIFEROL (VIT D3) 5000 UNIT CAP PO SCH (08:33)
[2018-03-08] MEDS: DOXEPIN HCL 25 MG CAP PO SCH (08:33)
[2018-03-08] MEDS: ENOXAPARIN SODIUM 80 MG/0.8 ML SYRINGE SQ SCH ×2 (08:33→13:01)
[2018-03-08] MEDS: PANTOPRAZOLE SOD 40 MG DELAYED RELEASE TAB PO SCH (08:34)
[2018-03-08] MEDS: TRIAMTERENE/HCTZ 37.5 MG/25 MG TAB PO SCH (08:34)
[2018-03-08] MEDS: POTASSIUM CHLORIDE 20 MEQ CONTROLLED RELEASE TAB PO SCH (08:34)
--- NOTE | 2018-03-08 08:40 | HHI.PR ---
Subjective Remarks Pt had SALLIE today which was negative. Loop recorder was interrogated and pt with noted paroxysmal atrial fibrillation per report from [employer] Objective Vitals Vital Signs Date Time Temp Pulse Resp B/P (MAP) Pulse Ox O2 Delivery O2 Flow Rate FiO2 03/08/18 08:00 98.8 62 17 130/84 (99) 97 03/08/18 04:20 98.0 67 19 120/68 (85) 98 03/08/18 04:00 66 03/08/18 00:30 97.6 70 17 128/68 (88) 97 03/07/18 21:50 98.0 75 16 130/60 (83) 96 03/07/18 20:00 112 03/07/18 16:02 101 03/07/18 16:00 97.9 84 18 119/76 (90) 96 03/07/18 12:32 75 03/07/18 12:00 99.1 80 18 107/72 (84) 97 03/07/18 10:04 69 Result Diagram: 03/04/18 1325 03/04/18 1325 Other Results Laboratory Tests Test 03/07/18 05:44 Prothrombin Time 11.5 SEC Prothromb Time International Ratio 1.1 RATIO Imaging Last Impressions Head Magnetic Resonance Angiography 03/05/18 0000 Signed Impressions: CONCLUSION: 1. Negative for major branch vessel occlusion. Carotid Artery Ultrasound 03/05/18 0000 Signed Impressions: CONCLUSION: 1. Right Internal Carotid Artery: Mild calcific plaque with no evidence of dalia nosis. 2. Left Internal Carotid Artery: Mild calcific plaque with no evidence of sten osis. Brain MRI 03/05/18 0000 Signed Impressions: CONCLUSION: 1. There are numerous small areas of abnormal diffusion signal seen within the parietal cortex bilaterally, the left occipital cortex, the basal ganglia on t he left and the right cerebellar hemisphere. Findings would be consistent with multiple areas of cortical infarct. The multiple vascular territories involved would suggest embolic infarcts. Head CT 03/04/18 1331 Signed Impressions: CONCLUSION: 1. Negative noncontrast CT Objective Remarks General: NAD, AAOx3 Chest: CTA Cardiac: Regular Abd: +BS, soft ND/NT Ext: no edema A/P Problem List: (1) Stroke due to embolism ICD Codes: I63.9 - Cerebral infarction, unspecified Status: Acute Plan: Embolic CVA Visual changes - Pt is a 52 y/o male with paroxysmal A. fib, PVD, hyperlipidemia, FRANCOIS, and insomnia who [place] [facility] [place] with complaints of vision changes and unsteady gait. - Head CT was negative. - Brain MRI (03/05/18) --> numerous small areas of abnormal diffusion signal seen within the parietal cortex bilaterally, the left occipital cortex, the basal ganglia on the left and the right cerebellar hemisphere. Findings would be consistent with multiple areas of cortical infarct. The multiple vascular territories involved would suggest embolic infarcts. - MRA Brain (03/05/18) --> No major branch vessel occlusion - Carotid US (03/05/18) --> Mild calcific plaque with no evidence of stenosis of bilateral internal carotids. - Pt was has been on Eliquis 5 mg twice daily for his A. fib and was reportedly compliant. - Neurology is following and recommended discontinuing Eliquis and changing to warfarin with Lovenox bridge. - The patient's symptoms have resolved and he is back to his neurologic baseline. - The exact etiology for the pts embolic CVA is unclear. - No fevers or other indication of immediate infectious etiology. - Pt underwent SALLIE today which was negative - Loop recorder was interrogated which noted paroxysmal atrial fibrillation Paroxysmal atrial fibrillation - Currently NSR. - Continue metoprolol 25mg po BID - Pt is on Coumadin 5mg po daily with Lovenox bridge - INR 1.1 on 03/07/18 - Repeat INR has not resulted yet for today Hyperlipidemia - Lipid profile noted - Lipitor increased to 80mg po daily. (2) Visual changes ICD Codes: H53.9 - Unspecified visual disturbance (3) PVD (peripheral vascular disease) ICD Codes: I73.9 - Peripheral vascular disease, unspecified Status: Chronic (4) Hyperlipidemia ICD Codes: E78.5 - Hyperlipidemia, unspecified Assessment and Plan Patient examined. Assessment and plan formulated with Melanie Gao PA-C. I agree with the above. Case d/w Cardiology, Dr. Francis (03/08/18) - SALLIE (03/08/18) EF 50 - 55% did NOT show particular valvular abnormality or thrombus. - obtain interrogation of loop recorder. Melanie Gao Mar 08, 2018 08:40 Albert Osorio DO Mar 08, 2018 13:06
[2018-03-08] MEDS ORDERED: PROPOFOL 200 MG/20 ML AMP ONE ×2 (08:41→08:42)
--- NOTE | 2018-03-08 09:56 | HM ---
Date Performed: 03/05/2018 Time Performed: 17:42:00 HOOKUP DATE: 03/05/18 05:42:00 PM Fri ANALYSIS START TIME: 03/05/2018 5:47:00 PM ANALYSIS END TIME: 03/06/2018 4:03:36 PM PATIENT AGE: 52 PATIENT HEIGHT: 72 PATIENT WEIGHT: 171 DRUG LIST PATIENT DIAGNOSIS: TIA TEST NARRATIVE: The patient's average heart rate was 66 BPM. No episodes of tachycardia wer e noted. Heart rates less than 50 BPM were noted 4% of the time. No pauses exceeding 2.0 seconds were noted. 148 ventricular ectopics, which represented < 1% of the total beat count, were noted . The highest ventricular ectopic frequency occurred from 06:00 PM to 07:00 PM Fri. During this jose e 13 VE(s) occurred. Ventricular ectopics were observed as 145 isolated beat(s) and as 1 run(s). 3 supraventricular ectopics, which represented < 1% of the total beat count, were noted. The highes t supraventricular ectopic frequency occurred from 06:00 PM to 07:00 PM Fri. During this time 1 SVE( s) occurred. No episodes of ST depression (defined as -1.0 mm or more) were noted in channel 1. No episodes of ST depression (defined as -1.0 mm or more) were noted in channel 2. No episodes of ST depression (defined as -1.0 mm or more) were noted in channel 3. TEST INTERPRETATION: Normal Sinus rhythm with a rare PAC and rare PVC noted. No other significant arrhythmias were seen. Signed by : Fox Dominguez
[2018-03-08] MEDS ORDERED: NURSING INFORMATION XX PRN (10:15)
[2018-03-08 10:19] VITALS: PULSE 85
--- NOTE | 2018-03-08 12:06 | ECHRPT ---
Indication: CA/TIA CONCLUSIONS Normal left ventricular size. Wall thickness is measured at the upper limits of normal. The left ventricular systolic function is low normal with an estimated ejection fraction in the rang e of 50- 55%. No regional wall motion abnormalities are present. Normal atrial septal thickness without atrial level shunting by limited color doppler interrogation. Atrial septal aneurysm is present (benign finding). No atrial level shunt is demonstrated by color flow Doppler or agitated saline imaging. Mild thickening of the mitral valve leaflets. Mild mitral valve regurgitation. Mitral annular calcification is present. No mitral valve stenosis. Anterior mitral valve leaflet prolapse. There is trace tricuspid valve regurgitation. BP: / HR: Rhythm: Technical Quality: Medications Complications Proc. Components The patient was brought to the diagnostic imaging area in a fasting state after o btaining an informed consent. The patient was premedicated with IV Versed and IV Fentanyl. The decision unit rn ior pharynx was sprayed with Cetacaine spray and the patient was administered viscous Xylocaine 2 %. The SALLIE probe was passed into the posterior pharynx , mid-esophagus, distal esophagus, and gastric fundus. SALLIE was performed at multiple levels. The patient tolerated the procedure well and there were no complications. The patient was transferred to the floor in satisfactory condition.. FINDINGS LEFT VENTRICLE Normal left ventricular size. Wall thickness is measured at the upper limits of normal. The left ventricular systolic function is low normal with an estimated ejection fraction in the rang e of 50- 55%. No regional wall motion abnormalities are present. RIGHT VENTRICLE Normal right ventricular size and systolic function. LEFT ATRIUM The left atrial size is normal. RIGHT ATRIUM The right atrial size is normal. ATRIAL APPENDAGES Normal left atrial appendage size with no evidence of thrombus formation. ATRIAL SEPTUM Normal atrial septal thickness without atrial level shunting by limited color doppler interrogation. Atrial septal aneurysm is present (benign finding). No atrial level shunt is demonstrated by color flow Doppler or agitated saline imaging. AORTA The aortic root and proximal ascending aorta are normal in size on limited imaging. MITRAL VALVE Mild thickening of the mitral valve leaflets. Mild mitral valve regurgitation. Mitral annular calcification is present. No mitral valve stenosis. Anterior mitral valve leaflet prolapse. AORTIC VALVE Trileaflet aortic valve. No aortic valve stenosis or regurgitation. TRICUSPID VALVE There is trace tricuspid valve regurgitation. VESSELS The inferior vena cava is normal in size. PULMONARY VALVE The pulmonary valve is not well visualized. PERICADIUM No pericardial effusion. Francois Francis MD, FACC (Electronically Signed) Final Date:08 March 2018 12:05
--- NOTE | 2018-03-08 12:10 | HHI.FF ---
Face to Face Verification Diagnosis: (1) Paroxysmal A-fib (2) Stroke due to embolism (3) Visual changes (4) Hyperlipidemia Home Health Nursing Order: Medical education Signs/symptoms of disease process Nursing assessment with vital signs Instructions: Patient needs daily PT/INR checks with results to Dr. Price. Once INR is therapeutic, at 2 or above, the Lovenox can be stopped and repeat INR checks to be ordered by the pts PCP, Dr. Price. I have seen patient Tan Hickman on 03/08/18. My clinical findings support the need for the requested home health care services because: Deconditioned w/ increased weakness I certify that my clinical findings support that this patient is homebound because: Unsteady gait/balance Melanie Gao Mar 08, 2018 12:10 Albert Osorio DO Mar 09, 2018 12:33
[2018-03-08] MEDS ORDERED: ATOR80TA45 PO (12:14)
[2018-03-08] MEDS ORDERED: COUM5TAB PO (12:14)
[2018-03-08] MEDS ORDERED: ENOX80P SQ (12:14)
--- NOTE | 2018-03-08 12:15 | HHI.DCPOC ---
Discharge Care Plan Diagnosis: (1) Stroke due to embolism (2) Paroxysmal A-fib (3) Visual changes (4) PVD (peripheral vascular disease) (5) Hyperlipidemia Goals to Promote Your Health - Changes to medications include: - Metoprolol increased to 50mg twice daily - Triamterene/HCTZ was STOPPED - STARTED on Lipitor 80mg at bedtime (cholesterol medication) - STOPPED Rosuvastatin (cholesterol medication) - Eliquis is STOPPED - STARTED on Coumadin 5mg once daily - Lovenox injections 80mg twice daily until INR is therapeutic at 2 or above. - Patient is to monitor his blood pressure at home with the increase in his Metoprolol - Patient is to followup with Dr. Price in 1 week, call for that appt. - Patient is to followup with Dr. Alejandre in 2 weeks, call for that appt - Patient is to followup with Dr. Rosas (Neurologist) in 2-3 weeks, call for that appt - Patient is to followup with [facility] Op[facility]mology in 1 week, call for that appt. Directions to Meet Your Goals Take your medications as prescribed Follow your dietary instruction Follow activity as directed Keep your appointments as scheduled Take your immunizations and boosters as scheduled If your symptoms worsen call your PCP, if no PCP go to Urgent Care Center or Emergency Room Smoking is Dangerous to Your Health. Avoid second hand smoke Call the 24-hour hour crisis hotline for domestic abuse at Melanie Gao Mar 08, 2018 12:15
[2018-03-08] MEDS ORDERED: METO25TA3 PO (12:27)
[2018-03-08 12:46] VITALS: BP 126/88; PULSE 73; RESP 18; TEMP 97.5; O2SAT 97
--- NOTE | 2018-03-08 12:58 | HHI.DS ---
Discharge Summary Admission Date March 04, 2018 Discharge Date: Mar 08, 2018 Admitting Diagnosis TIA (1) Stroke due to embolism Diagnosis: Principal ICD Codes: I63.9 - Cerebral infarction, unspecified Status: Acute (2) Visual changes Diagnosis: Secondary ICD Codes: H53.9 - Unspecified visual disturbance (3) PVD (peripheral vascular disease) Diagnosis: Secondary ICD Codes: I73.9 - Peripheral vascular disease, unspecified Status: Chronic (4) Hyperlipidemia Diagnosis: Secondary ICD Codes: E78.5 - Hyperlipidemia, unspecified (5) Paroxysmal A-fib Diagnosis: Secondary ICD Codes: I48.0 - Paroxysmal atrial fibrillation Consultants Dr. Francois Francis-Cardiology Dr. Pamela Rosas - Neurology Brief History HPI from H&P on 03/04/18 "The patient is a 52-year-old gentleman who states he was sitting at a friend's house today, in the afternoon around lunchtime, visiting with his friend, when he said that suddenly he developed pain behind his left eye that he felt was right behind his eyeball. He also felt that it went down a little bit down his cheek. It sounds like he felt a little bit disoriented when this happened and foggy or unclear. He says that when he looked to the right, he felt like his vision was diminished, that things were in a darker shadow as compared to when he looked to the left. He describes a sensation of not feeling quite right. He felt like he would not be able to stand up, that if he did, he would be unsteady, but he denies any actual weakness in any extremity or difficulty with speech, even though his who answered the phone call from him said that he just seemed to hesitate when he spoke. He describes like a transient type of confusion. He did say he had some tingling at the tips of his left fingers when this occurred as well. He felt too weak to drive and she came up to pick him up and brought him to the emergency room. By the time he had arrived, his eye pain and visual changes seemed to have improved significantly. He states he has never had anything like this before. He did have a very small breakfast this morning, just some pudding. He really had not had lunch because he was anticipating having lunch with his friend. He has never had episodes of low sugars. He does not normally suffer from headaches or migraines. He has been under increased stress lately. He has some circulatory issues with his right lower extremity and has seen Dr. Loco for possible surgical intervention. He has not been able to work secondary to this and this has added stress and anxiety, but he does not tell me that he was feeling any increased stress or anxiety at the moment that this was occurring. At the time that I see him, most of his symptoms seemed to be resolved, except for some residual discomfort behind his left eye, which he describes as minimal. He no longer has visual changes." CBC/BMP: 03/04/18 1325 03/04/18 1325 Significant Findings Laboratory Tests Test 03/06/18 06:35 03/07/18 05:44 Imaging Last Impressions Head Magnetic Resonance Angiography 03/05/18 0000 Signed Impressions: CONCLUSION: 1. Negative for major branch vessel occlusion. Carotid Artery Ultrasound 03/05/18 0000 Signed Impressions: CONCLUSION: 1. Right Internal Carotid Artery: Mild calcific plaque with no evidence of dalia nosis. 2. Left Internal Carotid Artery: Mild calcific plaque with no evidence of sten osis. Brain MRI 03/05/18 0000 Signed Impressions: CONCLUSION: 1. There are numerous small areas of abnormal diffusion signal seen within the parietal cortex bilaterally, the left occipital cortex, the basal ganglia on t he left and the right cerebellar hemisphere. Findings would be consistent with multiple areas of cortical infarct. The multiple vascular territories involved would suggest embolic infarcts. Head CT 03/04/18 1331 Signed Impressions: CONCLUSION: 1. Negative noncontrast CT PE at Discharge General: NAD, AAOx3 Chest: CTA Cardiac: Regular Abd: +BS, soft ND/NT Ext: no edema Hospital Course Embolic CVA Visual changes - Pt is a 52 y/o male with paroxysmal A. fib, PVD, hyperlipidemia, FRANCOIS, and insomnia who [place] [facility] [place] with complaints of vision changes and unsteady gait. Head CT was negative. Brain MRI (03/05/18) --> numerous small areas of abnormal diffusion signal seen within the parietal cortex bilaterally, the left occipital cortex, the basal ganglia on the left and the right cerebellar hemisphere. Findings would be consistent with multiple areas of cortical infarct. The multiple vascular territories involved would suggest embolic infarcts. MRA Brain (03/05/18) --> No major branch vessel occlusion. Carotid US (03/05/18) --> Mild calcific plaque with no evidence of stenosis of bilateral internal carotids. Pt was has been on Eliquis 5 mg twice daily for his A. fib and was reportedly compliant. Neurology is following and recommended discontinuing Eliquis and changing to warfarin with Lovenox bridge. The patient's symptoms have resolved and he is back to his neurologic baseline. He has still had some visual floaters that occur periodically. Pt has not had any fevers or other indication of immediate infectious etiology. Pt underwent SALLIE on 03/08/18 which was negative. Loop recorder was interrogated which noted paroxysmal atrial fibrillation. Pt will be continued on a Coumadin and Lovenox bridge. We will arrange for [facility] to come out for daily INR checks with results to his PCP , until his INR is at 2 or above, then the Lovenox can be stopped and repeat INR checked will be determined by his PCP at that point. Pt will need to followup with his PCP. Dr. Price in 1 week Pt will need to followup with Neurology, Dr. Rosas, in 2-3 weeks Pt will need to followup with [facility] Ophthalmology in 1 week Paroxysmal atrial fibrillation - Currently NSR. Pt is on Coumadin 5mg po daily with Lovenox bridge. INR 1.1 on 03/07/18. Discussed the case with Dr. Francis prior to discharge and we will increase the pts Metoprolol to 50mg po BID at discharge to try to maintain better rate control for his A. fib. Pt will have vitals monitored by [facility] and pt is to monitor for any decrease in his BP with the higher dose of Metoprolol. We will stop the Dyazide upon discharge with the increase in his Metoprolol so that his BP does not go to low. Pt will need to followup with Dr. Alejandre, his Commercial Intelligence Manager, in 2 weeks. Hyperlipidemia - Lipid profile noted. Lipitor increased to 80mg po daily. Depression/Anxiety - Home meds continued Pt Condition on Discharge: Stable Discharge Disposition: Disch w/ Home Health Serv Discharge Instructions DIET: Follow Instructions for: Heart Healthy Diet Activities you can perform: Weight Bearing as Owen Follow up Referrals: Cardiology - 2 Weeks with Terry Alejandre MD Neurology - [address] Rosas Ophthalmology - 1 Week @ [facility] PCP Follow-up - [address] Dami Price New Medications: Atorvastatin (Atorvastatin) 80 Mg Tab 80 MG PO HS for cva, #30 TAB Enoxaparin Inj (Lovenox Inj) 80 mg/0.8 ML Syr 80 MG SQ Q12H for cva, #10 INJECTION Warfarin (Coumadin) 5 Mg Tab 5 MG PO DAILY@1600 for a. fib, #30 TAB Changed Medications: Metoprolol Tartrate (Metoprolol Tartrate) 25 Mg Tab 50 MG PO BID for a. fib, #60 TAB 0 Refills (Changed from: 25 MG) Continued Medications: Albuterol 8.5 GM Inh (Proair Hfa 8.5 GM Inh) 90 Mcg/Act Aer 2 PUFF INH Q4-6H PRN for SHORTNESS OF BREATH, #1 INHALER 0 Refills 108 mcg/actuation Cholecalciferol (Vitamin D3) 5,000 Unit Cap 5000 UNITS PO DAILY for Nutritional Supplement, #30 CAP 0 Refills Diazepam (Diazepam) 10 Mg Tab 10 MG PO HS, TAB 0 Refills Doxepin (Doxepin) 75 Mg Cap 75 MG PO DAILY, #30 CAP 0 Refills Fish Oil-Cholecalciferol (Fish Oil + D3) 1,200-1,000 Mg-Unit Cap 1 CAP PO DAILY for Nutritional Supplement, #30 CAP 0 Refills Pantoprazole (Protonix) 40 Mg Tab 40 MG PO DAILY for Reflux, #30 TAB 0 Refills Potassium Chloride ER (Potassium Chloride ER) 20 Meq Tab 20 MEQ PO DAILY for Electrolyte Replacement, #30 TAB 0 Refills Discontinued Medications: Apixaban (Eliquis) 5 Mg Tab 5 MG PO BID for Blood Clot Prevention, #60 TAB 0 Refills Rosuvastatin (Rosuvastatin) 20 Mg Tab 20 MG PO DAILY for Cholesterol Management, #30 TAB 0 Refills Triamterene-Hydrochlorothiazide (Triamterene-Hydrochlorothiazide) 37.5-25 Mg Tab 1 TAB PO DAILY, #30 TAB 0 Refills Additional Information Patient examined. Assessment and plan formulated with Val Hines PA-C. I agree with the above. Melanie Gao Mar 08, 2018 12:58 Albert Osorio DO Mar 09, 2018 23:13
[2018-03-08 14:42] LABS: PROTHROMBIN TIME - PATIENT 20.1 SEC (9.8-11.6)
[2018-03-08] MEDS: WARFARIN SOD 5 MG TAB PO SCH (16:00)
== END 2018-03-08 18:39 | disposition home health service (06) | DRG 66 ==
LOC: PHED 13:14 → PHEDA 14:48 → PH3A 17:06 → N05A 03-06 19:50 → OBSVTOIN 03-08 09:06
PROVIDERS: ADMIT Hospitalist; ATTEND Hospitalist
PROC: B246ZZ4 Ultrasonography of Right and Left Heart, Transesophageal (ICD-10-PCS; principal; 2018-03-08)
DX: I63.40 Cerebral infarction due to embolism of unspecified cerebral artery (principal); H43.399 Other vitreous opacities, unspecified eye; I10 Essential (primary) hypertension; I48.0 Paroxysmal atrial fibrillation; J44.9 Chronic obstructive pulmonary disease, unspecified; I73.9 Peripheral vascular disease, unspecified; K21.9 Gastro-esophageal reflux disease without esophagitis; E78.5 Hyperlipidemia, unspecified; G47.00 Insomnia, unspecified; G47.33 Obstructive sleep apnea (adult) (pediatric); R00.0 Tachycardia, unspecified; F32.9 Major depressive disorder, single episode, unspecified; F41.9 Anxiety disorder, unspecified; Z79.01 Long term (current) use of anticoagulants; Z87.891 Personal history of nicotine dependence
CPT/HCPCS: 70450; 70544; 70551; 80053; 80061; 80307; 81001; 82550; 82948; 83036; 83690; 83880; 84484; 85025; 85610; 85730; 93005; 93225; 93226; 93306; 93312; 93320; 93325; 93880; J1650

== ENCOUNTER 2018-08-03 08:24 | Inpatient (IN) ==
[2018-08-03] MEDS ORDERED: Metoprolol Tartrate 25 MG Tablet PO ONE (08:55)
[2018-08-03] MEDS ORDERED: Chlorhexidine Gluconate 2% 1 Pack (2 Cloths) TOPICAL ONE (08:55)
[2018-08-03] MEDS ORDERED: Sodium Chlor 0.9% Inj 500 ML IV.SIG ONE (09:00)
[2018-08-03 09:30] LABS: Prothrombin Time 10.5 sec (9.8-11.6)
[2018-08-03] MEDS ORDERED: Protamine Sulfate Inj 50 MG/5 ML Vial ONE (10:46)
[2018-08-03] MEDS ORDERED: Bupivacaine 0.5% Inj 50 ML MDV Vial ONE (10:46)
[2018-08-03] MEDS ORDERED: Heparin 10,000 UNITS/10 ML Vial (for IV use) ONE (10:46)
[2018-08-03] MEDS ORDERED: Thrombin Topical 20,000 UNIT Spray Kit TOPICAL ONE ×2 (10:46→15:47)
--- NOTE | 2018-08-03 11:15 | P.HPVS ---
History of Present Illness Chief Complaint: R LE rest pain, failed distal bypass History of Present Illness: 53 yo male with h/o R LE bypass elsewhere, presents with rest pain, no tissue loss. Presents for re-do bypass, potentially with arm vein - Inpatient Certification If this patient has been admitted as an Inpatient: I certify that the inpatient services were ordered in accordance with Medicare regulations governing the order. This includes certification that hospital inpatient services are reasonable and necessary and in the case of services not specified as inpatient-only under 42 CFR 419.22(n), that they are appropriately provided as inpatient services in accordance to with the 2-midnight benchmark under 43 CFR 412.3(e) Estimated Total Length of Stay (Days): 7 Plans for Post Hospital Care: Home Review of Systems Constitutional: Denies chills, Denies fever(s) Cardiovascular: Denies chest pain PMFSH - History History Provided By: Patient - Medical History Medical History: Medical History (Last Reviewed 08/03/18 @ 11:14 by Wallace Loco MD) Depression Hx of deep venous thrombosis Hyperlipidemia A-fib COPD (chronic obstructive pulmonary disease) History of heart attack Obstructive sleep apnea on CPAP Stroke Wears dentures - Surgical History Surgical History: Surgical History (Last Reviewed 08/03/18 @ 11:14 by Wallace Loco MD) History of esophagogastroduodenoscopy (EGD) History of femoropopliteal bypass History of loop recorder History of nasal surgery - Tobacco History Second Hand Smoke Exposure: Yes Tobacco Use In Past 30 Days: No Smoking Status: Former smoker Tobacco Type: Cigarettes - Alcohol History How Often Do You Have a Drink Containing Alcohol: 2 to 3 times a week - Substance Use History Substance History: Active Abuse - Substance Use Type Marijuana Status: Active Route Used: Inhalation Reason for Use: Calm Down Medications and Allergies Active Medications: Active Medications Lactated Ringer's (Lr 1000 Ml Inj) 1,000 mls @ 30 mls/hr IV.SIG .Q24H ELIZABETH Stop: 08/04/18 08:59 Last Admin: 08/03/18 09:00 Dose: 30 mls/hr Sodium Chloride (Ns Inj) 500 mls @ 30 mls/hr IV.SIG .Q10H ONE Stop: 08/04/18 01:39 Last Admin: 08/03/18 10:05 Dose: Not Given Allergies Allergy/AdvReac Type Severity Reaction Status Date / Time No Known Allergies Allergy Unverified 08/03/18 09:11 Home Medications Medication Instructions Recorded Confirmed Type albuterol sulfate 2 puff INHALATION Q4-6H PRN 07/27/18 08/03/18 History atorvastatin 80 mg PO DAILY 07/27/18 08/03/18 History cholecalciferol (vitamin D3) 1 tab PO DAILY 07/27/18 08/03/18 History [Vitamin D3] cilostazol 50 mg PO BID 07/27/18 08/03/18 History diazepam 10 mg PO HS PRN 07/27/18 08/03/18 History doxepin 75 mg PO DAILY 07/27/18 08/03/18 History metoprolol tartrate 50 mg PO BID 07/27/18 08/03/18 History pantoprazole 40 mg PO DAILY 07/27/18 08/03/18 History potassium chloride 20 meq PO DAILY 07/27/18 08/03/18 History warfarin 2 mg PO DAILY 07/27/18 08/03/18 History Physical Exam Vital Signs / I&O: Vital Signs 08/03/18 09:29 Temperature 98.6 F Pulse Rate 75 Respiratory Rate 20 Blood Pressure 117/74 Pulse Oximetry 96 Intake & Output 08/02/18 08/03/18 08/03/18 18:59 06:59 18:59 Weight 88 kg Other: Weight On Admission 88 kg Neuro: alert, no distress HEENT: NC/AT Neck: no JVD Heart: reg rate Lungs: clear Abdomen: soft Vascular: no palp R pedal pulses Laboratory Results - last 24 hr 08/03/18 08/03/18 09:04 09:04 PT 10.5 D INR 1.0 Blood Type AB Positive Antibody Screen Negative MTS Gel Crossmatch See Detail Caprini VTE Risk Assessment Caprini VTE Risk Assessment: No/Low Risk (score <= 1) (intraop heparin) Caprini Risk Assessment Model: Point Value = 1 Point Value = 2 Point Value = 3 Point Value = 5 Age 41-60 Minor surgery BMI > 25 kg/m2 Swollen legs Varicose veins or History of unexplained or recurrent spontaneous Oral contraceptives or hormone replacement Sepsis (< 1 month) Serious lung disease, including pneumonia (< 1 month) Abnormal pulmonary function Acute myocardial infarction Congestive heart failure (< 1 month) History of inflammatory bowel disease Medical patient at bed rest Age 61-74 Arthroscopic surgery Major open surgery (> 45 min) Laparoscopic surgery (> 45 min) Malignancy Confined to bed (> 72 hours) Immobilizing plaster cast Central venous access Age >= 75 History of VTE Family history of VTE Factor V Leiden Prothrombin [id number] Lupus anticoagulant Anticardiolipin antibodies Elevated serum homocysteine Heparin-induced thrombocytopenia Other congenital or acquired thrombophilia Stroke (< 1 month) Elective arthroplasty Hip, pelvis, or leg fracture Acute spinal cord injury (< 1 month) Prophylaxis Regimen: Total Risk Factor Score Risk Level Prophylaxis Regimen 0-1 Low Early ambulation 2 Moderate Order ONE of the following: *Sequential Compression Device (SCD) *Heparin 5000 units SQ BID 3-4 Higher Order ONE of the following medications: *Heparin 5000 units SQ TID *Enoxaparin/Lovenox 40 mg SQ daily (WT < 150 kg, CrCl > 30 mL/min) *Enoxaparin/Lovenox 30 mg SQ daily (WT < 150 kg, CrCl > 10-29 mL/min) *Enoxaparin/Lovenox 30 mg SQ BID (WT < 150 kg, CrCl > 30 mL/min) AND/OR *Sequential Compression Device (SCD) 5 or more Highest Order ONE of the following medications: *Heparin 5000 units SQ TID (Preferred with Epidurals) *Enoxaparin/Lovenox 40 mg SQ daily (WT < 150 kg, CrCl > 30 mL/min) *Enoxaparin/Lovenox 30 mg SQ daily (WT < 150 kg, CrCl > 10-29 mL/min) *Enoxaparin/Lovenox 30 mg SQ BID (WT < 150 kg, CrCl > 30 mL/min) AND *Sequential Compression Device (SCD) Assessment and Plan - Assessment (1) PAD (peripheral artery disease) Code(s): I73.9 - Peripheral vascular disease, unspecified Status: Acute - Plan R LE bypass PACU and CPCU post-op [phone]
[2018-08-03] MEDS ORDERED: Lidocaine PF 1% Inj 5 ML Syringe OTHER ONE (12:32)
[2018-08-03] MEDS ORDERED: Sodium Chlor 0.9% Inj 500 ML IV.CONT ONE (12:32)
[2018-08-03] MEDS ORDERED: Glycopyrrolate Inj 1 MG/5 ML Syringe IV.PUSH ONE (12:32)
[2018-08-03] MEDS ORDERED: Normosol-R pH 7.4 Inj 1,000 ML IV.CONT ONE (12:32)
[2018-08-03] MEDS ORDERED: Labetalol HCl Inj 100 MG/20 ML Vial IV.CONT ONE (12:32)
[2018-08-03] MEDS ORDERED: Neostigmine Inj 5 MG/5 ML Syringe IV.PUSH ONE (12:32)
[2018-08-03] MEDS ORDERED: HYDROmorphone PF Inj 1 MG/ML Ampul ONE (14:13)
[2018-08-03] MEDS ORDERED: ceFAZolin 1 GM Premix Inj 1 GM/50 ML FROZ.PIGGY IV.SIG ONE (15:47)
[2018-08-03] MEDS ORDERED: Bisacodyl 10 MG Supp RECTAL PRN (16:28)
[2018-08-03] MEDS ORDERED: Morphine Inj 30 MG/30 ML PCA.VIAL PCA PRN (16:32)
[2018-08-03] MEDS ORDERED: Naloxone Inj 0.4 MG/ML Vial IV.PUSH PRN (16:32)
--- NOTE | 2018-08-03 17:22 | P.OP ---
- Preoperative Diagnosis (1) PAD (peripheral artery disease) - Postoperative Diagnosis (1) PAD (peripheral artery disease) Date of procedure: 08/03/18 Procedure: 1. R LE angiogram 2. R SFA-PT with contralateral GSV (reversed) 3. Redo bypass Implants: none Anesthesia: GETA Surgeon: Wallace Loco MD Private Branch Exchange Installer: Tan Brewster Private Branch Exchange Installer: Annel Phelps Estimated blood loss (mL): 200 IV fluids (mL): 3,000 Urine output (mL): 500 Pathology: none sent Operation and Findings: strong PT at end of case
[2018-08-03] MEDS ORDERED: fentaNYL Citrate Inj 100 MCG/2 ML Ampul ONE (17:55)
[2018-08-03] MEDS ORDERED: *morphine SULFATE 10 MG/ML PERIprocedure ONLY ONE (18:55)
--- NOTE | 2018-08-03 21:54 | MP ---
cc: Wallace Loco MD DATE OF OPERATION: 08/03/2018 PREOPERATIVE DIAGNOSES: Right lower extremity ischemia with rest pain, failed bypass. POSTOPERATIVE DIAGNOSES: Right lower extremity ischemia with rest pain, failed bypass. PROCEDURE PERFORMED: 1. Right lower extremity angiogram. 2. Right superficial femoral artery to posterior tibial artery bypass with reverse left great saphenous vein. 3. Redo bypass. ATTENDING SURGEON: Wallace Loco MD ENTRY LEVEL ASSISTANT MANAGER SURGEONS: Tan Brewster MD; ROSENDO Herrera, PA/Rn Licensed Practical ANESTHESIA: General. INDICATIONS FOR PROCEDURE: Mr. Hickman is a young man who has had a failed right lower extremity bypass done elsewhere. He has rest pain and he was taken to the operating room for angiogram and distal bypass. There was no prior catheter-based imaging available for my review. DESCRIPTION OF PROCEDURE: Informed consent was obtained from the patient. He was taken to the operating room and placed supine on the operating room table. An appropriate timeout was taken to ensure the patient's identity, operative site and planned procedure. Two grams of Ancef was initiated prior to skin incision and this was re-bolused after 4 hours. Everyone in the room agreed with the timeout and we proceeded. The Ancef, of note, we will be stopped after the intraoperative dosing. He was prepped from his nipples to the toes and his left arm. A 21 gauge micropuncture needle was used to access the patient's right common femoral artery. This was exchanged Seldinger technique for a micropuncture sheath, through which a right lower extremity angiogram was obtained. The angiogram showed the patient had a patent common femoral artery, profunda and SFA. The mid SFA occluded and reconstituted through a posterior tibial artery which continued on down to the foot. The micropuncture catheter was removed and pressure held for hemostasis. An incision was made in the patient's right thigh and carried down through the subcutaneous tissues with electrocautery. The superficial femoral was identified. It was noted to be quite soft. It was dissected free circumferentially and a vessel loop was placed around this. The distal calf posterior tibial artery was dissected free after an incision was made in this area. This incision was carried down through the subcutaneous tissues with electrocautery. The posterior tibial artery was noted to be quite a reasonable size and quite soft. A tunnel was then created between these two. An incision made in the patient's left groin and skip incisions were made going down the left leg. The saphenous vein was identified and dissected free. Side branches were ligated with 3-0 silk. The vein was marked for orientation, clamped proximally and distally resected. The proximal and distal ends were oversewn with 3-0 silk and the wound was irrigated and made hemostatic and closed with 2-0 Polysorb, 3-0 Polysorb and 4-0 Monocryl. The vein was then flushed and made hemostatic. The patient was systemically heparinized. Proximal and distal control of the superficial femoral artery was obtained with profunda clamps and a longitudinal arteriotomy was made with an 11 blade and extended with [place] scissors. The vein was spatulated and sewn end to side in reverse fashion to the right SFA. This was done with a running 5-0 Prolene suture. At the completion, it was flushed and noted to be hemostatic. The vein was distended, marked for orientation and passed through the tunnel. Proximal and distal control of the posterior tibial artery was obtained profunda clamps and a longitudinal arteriotomy was made with an 11 blade and extended with Agustin scissors. The distal anastomosis was done end to side with running 6-0 Prolene suture. At the completion, it was flushed and noted to be hemostatic. There was an excellent signal in the foot. The wounds were all irrigated. The heparin was reversed with protamine. The wounds were closed with 2-0 Polysorb, 3-0 Polysorb and 4-0 Monocryl. The sponge and needle counts were correct at the end of the case. I was present, scrubbed and performed the entire procedure. MD MANSI Mi/xavi , 08:58 PM , 09:05 PM
[2018-08-03] MEDS: Senna/Docusate Sodium 8.6/50 MG Tablet PO SCH (22:25)
[2018-08-03] MEDS: Metoprolol Tartrate 50 MG Tablet PO SCH (22:25)
[2018-08-04 03:19] LABS: Hemoglobin 13.5 gm/dL (13.0-17.0); Mean Corpuscular HGB Conc 33.7 % (32.0-36.0); Mean Corpuscular Hemoglobin 35.5 pg (27.0-34.0); Mean Corpuscular Volume 105.5 fL (80.0-100.0); Mean Platelet Volume 8.5 fL (7.0-11.0); Platelet Count 232 th/mm3 (150-450); Red Blood Count 3.79 mil/mm3 (4.50-5.90); Red Cell Distribution Width 17.1 % (11.6-17.2); White Blood Count 13.2 th/mm3 (4.0-11.0)
[2018-08-04 03:33] LABS: Calcium 7.8 mg/dL (8.5-10.1); Carbon Dioxide 28.5 meq/L (21.0-32.0); Potassium 4.4 meq/L (3.5-5.1)
--- NOTE | 2018-08-04 07:43 | P.PNVS ---
Subjective Post Op Day #: 1 Procedure: redo R LE bypass (SFA-PT with rL GSV) Subjective/Hospital Course: slept well, pain controlled foot ok Objective Vital Signs / I&O: Vital Signs 08/03/18 09:29 08/03/18 17:41 08/03/18 17:45 Temperature 98.6 F 94.0 F L 94.1 F L Pulse Rate 75 70 67 Respiratory Rate 20 10 L 10 L Blood Pressure 117/74 123/80 123/76 Pulse Oximetry 96 97 97 08/03/18 18:00 08/03/18 18:15 08/03/18 18:30 Temperature 94.3 F L 94.3 F L 95.1 F L Pulse Rate 69 69 78 Respiratory Rate 10 L 10 L 10 L Blood Pressure 124/82 130/85 151/92 H Pulse Oximetry 98 98 98 08/03/18 18:45 08/03/18 19:00 08/03/18 19:15 Temperature 95.3 F L 95.5 F L 96.1 F L Pulse Rate 81 76 94 H Respiratory Rate 19 19 17 Blood Pressure 131/82 135/79 127/80 Pulse Oximetry 98 96 95 08/03/18 19:30 08/03/18 19:41 08/03/18 20:00 Temperature 96.8 F L 96.8 F L 97.3 F L Pulse Rate 92 H 95 H Respiratory Rate 14 18 Blood Pressure 128/73 115/77 Pulse Oximetry 96 98 97 08/03/18 21:00 08/04/18 00:00 08/04/18 04:00 Temperature 97.9 F 97.6 F Pulse Rate 107 H 86 70 Respiratory Rate 18 16 Blood Pressure 118/78 117/73 Pulse Oximetry 98 96 Intake & Output 08/03/18 08/04/18 08/04/18 18:59 06:59 18:59 Intake Total 3100 / 3100 960 / 960 Output Total 700 / 700 750 / 750 Balance 2400 / 2400 210 / 210 Weight 88 kg 88 kg Intake: IV 1100 / 1100 Ofirmev Inj 1,000 mg In 100 ml 100 / 100 @ 0 mls/hr IV.SIG .STK-MED ONE Rx#:[id number] LR 1000 mL Inj 1,000 ML @ 30 1000 / 1000 mls/hr IV.SIG .Q24H ELIZABETH Rx#: [id number] Oral 960 / 960 Anesthesia Amount 1999 Output: Estimated Blood Loss 200 / 200 Urine Amount (Catheter) 500 / 500 750 / 750 Indwelling Urethral Catheter 500 / 500 750 / 750 Other: Weight On Admission 88 kg Exam: resting comfortably R thigh Prevena in place and thigh soft calf soft strong PT signal in foot L LE (GSV harvest site) ok Laboratory Results - last 24 hr 08/03/18 08/03/18 08/04/18 09:04 09:04 02:37 WBC 13.2 H RBC 3.79 L Hgb 13.5 Hct 40.0 MCV 105.5 H MCH 35.5 H MCHC 33.7 RDW 17.1 Plt Count 232 MPV 8.5 PT 10.5 D INR 1.0 Sodium Potassium Chloride Carbon Dioxide Anion Gap BUN Creatinine Estimated GFR Random Glucose Calcium Blood Type AB Positive Antibody Screen Negative MTS Gel Crossmatch See Detail 08/04/18 02:37 WBC RBC Hgb Hct MCV MCH MCHC RDW Plt Count MPV PT INR Sodium 140 Potassium 4.4 Chloride 105 Carbon Dioxide 28.5 Anion Gap 7 BUN 8 Creatinine 1.08 Estimated GFR 71 L Random Glucose 126 H Calcium 7.8 L Blood Type Antibody Screen MTS Gel Crossmatch Assessment and Plan - Assessment (1) PAD (peripheral artery disease) Code(s): I73.9 - Peripheral vascular disease, unspecified Status: Acute - Plan POD#1 s/p redo R LE bypass (SFA-PT with rLGSV) 1. HL IVF 2. OOB/PT 3. D/C Lee 4. Reg diet 5. Resume home anticoagulation tomorrow (POD#2) 6. Transition from SPINDLE MAKER to po pain meds with IV for BTP 7. Continue pulse checks Discharge Planning: likely 3-4 days, pending mobility and pain control
[2018-08-04] MEDS: Metoprolol Tartrate 50 MG Tablet PO SCH ×2 (09:18→20:54)
[2018-08-04] MEDS: Senna/Docusate Sodium 8.6/50 MG Tablet PO SCH ×2 (09:18→20:55)
[2018-08-04] MEDS: Morphine Sulfate Inj 2 MG/ML Vial IV.PUSH PRN ×3 (11:55→20:55)
[2018-08-04] MEDS: Enoxaparin Inj 40 MG/0.4 ML Syringe SQ SCH (17:02)
[2018-08-05] MEDS: Morphine Sulfate Inj 2 MG/ML Vial IV.PUSH PRN (03:55)
--- NOTE | 2018-08-05 07:43 | P.PNVS ---
Subjective Post Op Day #: 2 Procedure: redo R LE bypass (SFA-PT with rL GSV) Subjective/Hospital Course: looks good OOB TC yesterday verónica po pain controlled Objective Vital Signs / I&O: Vital Signs 08/04/18 08:00 08/04/18 09:00 08/04/18 10:00 Temperature 98.0 F Pulse Rate 72 78 78 Respiratory Rate 18 Blood Pressure 100/78 Pulse Oximetry 97 08/04/18 11:00 08/04/18 12:00 08/04/18 12:30 Temperature 98.2 F Pulse Rate 81 78 Respiratory Rate 18 7 L Blood Pressure 114/72 Pulse Oximetry 97 08/04/18 13:00 08/04/18 14:00 08/04/18 15:00 Temperature Pulse Rate 77 82 74 Respiratory Rate Blood Pressure Pulse Oximetry 08/04/18 16:00 08/04/18 17:00 08/04/18 18:00 Temperature 98.0 F Pulse Rate 77 75 75 Respiratory Rate 18 Blood Pressure 116/74 Pulse Oximetry 94 L 08/04/18 19:00 08/04/18 20:00 08/04/18 21:00 Temperature 97.7 F Pulse Rate 77 76 78 Respiratory Rate 16 Blood Pressure 99/58 L Pulse Oximetry 94 L 08/04/18 22:00 08/04/18 23:00 08/04/18 23:27 Temperature 97.9 F Pulse Rate 84 79 78 Respiratory Rate 16 Blood Pressure 104/78 Pulse Oximetry 92 L 08/05/18 00:00 08/05/18 01:00 08/05/18 02:00 Temperature Pulse Rate 83 85 75 Respiratory Rate Blood Pressure Pulse Oximetry 08/05/18 03:00 08/05/18 03:47 08/05/18 04:00 Temperature 98.3 F Pulse Rate 76 78 77 Respiratory Rate 16 Blood Pressure 112/74 Pulse Oximetry 08/05/18 05:00 08/05/18 06:00 Temperature Pulse Rate 80 81 Respiratory Rate Blood Pressure Pulse Oximetry Intake & Output 08/04/18 08/05/18 08/05/18 18:59 06:59 18:59 Intake Total 1250 / 1250 960 / 960 Output Total 850 / 850 1700 / 1700 Balance 400 / 400 -740 / -740 Intake: Oral 1250 / 1250 960 / 960 Output: Urine 600 / 600 1700 / 1700 Urine Amount (Catheter) 250 / 250 Indwelling Urethral Catheter 250 / 250 Other: # Bowel Movements 0 Exam: R thigh Prevena in place calf incision ok L LE incision ok Strong PT signal R foot Assessment and Plan - Assessment (1) PAD (peripheral artery disease) Code(s): I73.9 - Peripheral vascular disease, unspecified Status: Acute - Plan POD#2 s/p redo R LE bypass (SFA-PT with rLGSV) 1. reg diet 2. Resume anticoagulation tomorrow (POD#3) 3. PT/ambulate today 4. Continue pulse checks Discharge Plannin-2 days
[2018-08-05] MEDS: Senna/Docusate Sodium 8.6/50 MG Tablet PO SCH ×2 (09:31→21:21)
[2018-08-05] MEDS: Metoprolol Tartrate 50 MG Tablet PO SCH ×2 (09:31→21:20)
[2018-08-05] MEDS: Enoxaparin Inj 40 MG/0.4 ML Syringe SQ SCH (17:04)
--- NOTE | 2018-08-06 07:52 | P.PNVS ---
Subjective Post Op Day #: 3 Procedure: redo R LE bypass (SFA-PT with rL GSV) Subjective/Hospital Course: looks great pain controlled needs to get OOB verónica po voiding Objective Vital Signs / I&O: Vital Signs 08/05/18 08:00 08/05/18 09:00 08/05/18 10:00 Temperature 98.0 F Pulse Rate 90 80 78 Respiratory Rate 18 Blood Pressure 123/73 Pulse Oximetry 92 L 08/05/18 11:00 08/05/18 11:51 08/05/18 12:00 Temperature 98.4 F Pulse Rate 84 79 98 H Respiratory Rate 18 Blood Pressure 109/75 Pulse Oximetry 94 L 08/05/18 13:00 08/05/18 14:00 08/05/18 15:00 Temperature Pulse Rate 88 83 84 Respiratory Rate 16 Blood Pressure Pulse Oximetry 08/05/18 16:00 08/05/18 17:00 08/05/18 18:00 Temperature 98.7 F Pulse Rate 81 83 83 Respiratory Rate 20 Blood Pressure 135/66 Pulse Oximetry 94 L 08/05/18 19:00 08/05/18 20:00 08/05/18 21:00 Temperature 98.8 F Pulse Rate 85 85 85 Respiratory Rate 18 Blood Pressure 118/74 Pulse Oximetry 92 L 08/05/18 22:00 08/05/18 23:00 08/06/18 00:00 Temperature 98.7 F Pulse Rate 74 78 87 Respiratory Rate 20 Blood Pressure 112/73 Pulse Oximetry 95 08/06/18 01:00 08/06/18 02:00 08/06/18 03:00 Temperature Pulse Rate 86 86 89 Respiratory Rate Blood Pressure Pulse Oximetry 08/06/18 04:00 08/06/18 05:00 08/06/18 06:00 Temperature 98.7 F Pulse Rate 75 81 76 Respiratory Rate 18 Blood Pressure 112/71 Pulse Oximetry 95 Intake & Output 08/05/18 08/06/18 08/06/18 18:59 06:59 18:59 Intake Total 980 / 980 240 / 240 Output Total 560 / 560 600 / 600 Balance 420 / 420 -360 / -360 Intake: Oral 980 / 980 240 / 240 Output: Urine 560 / 560 600 / 600 Other: Date of Last Bowel Movement 08/03/18 Exam: resting comfortably R thigh Prevena in place - off Thursday R calf and L LE incisions c/d/i strong PT signal in R foot Laboratory Results - last 24 hr 08/03/18 09:04 MTS Gel Crossmatch See Detail Assessment and Plan - Assessment (1) PAD (peripheral artery disease) Code(s): I73.9 - Peripheral vascular disease, unspecified Status: Acute - Plan POD#3 s/p redo R LE bypass (SFA-PT with rLGSV) 1. resume anticoagulation today; d/c prophy lovenox and start therpeutic lovenox and coumadin at home dosage; will check INR Thursday (ordered) 2. Reg diet 3. OOB/PT - ambulate Discharge Plannin-2 days
[2018-08-06] MEDS: Enoxaparin Inj 80 MG/0.8 ML Syringe SQ SCH ×2 (09:23→21:01)
[2018-08-06] MEDS: Metoprolol Tartrate 50 MG Tablet PO SCH ×2 (09:24→21:02)
[2018-08-06] MEDS: Senna/Docusate Sodium 8.6/50 MG Tablet PO SCH ×2 (09:24→21:02)
[2018-08-07] MEDS: Enoxaparin Inj 80 MG/0.8 ML Syringe SQ SCH ×2 (09:23→21:25)
[2018-08-07] MEDS: Senna/Docusate Sodium 8.6/50 MG Tablet PO SCH ×2 (09:24→21:26)
[2018-08-07] MEDS: Metoprolol Tartrate 50 MG Tablet PO SCH ×2 (09:24→23:34)
--- NOTE | 2018-08-07 09:59 | P.PNVS ---
Subjective Post Op Day #: 4 Procedure: redo R LE bypass (SFA-PT with rL GSV) Subjective/Hospital Course: Doing very well, ambulating with a walker. Pain is well controlled Objective Vital Signs / I&O: Vital Signs 08/06/18 10:00 08/06/18 10:47 08/06/18 11:00 Temperature Pulse Rate 93 H 97 H Respiratory Rate Blood Pressure Pulse Oximetry 90 L 08/06/18 12:00 08/06/18 13:00 08/06/18 14:00 Temperature 97.8 F Pulse Rate 96 H 88 87 Respiratory Rate 18 Blood Pressure 115/69 Pulse Oximetry 93 L 08/06/18 15:00 08/06/18 16:00 08/06/18 17:00 Temperature 98.1 F Pulse Rate 92 H 84 87 Respiratory Rate 18 Blood Pressure 103/63 Pulse Oximetry 93 L 08/06/18 18:00 08/06/18 19:00 08/06/18 20:00 Temperature 98.8 F Pulse Rate 86 86 86 Respiratory Rate 19 Blood Pressure 116/69 Pulse Oximetry 96 08/06/18 21:00 08/06/18 22:00 08/06/18 23:00 Temperature Pulse Rate 83 93 H 89 Respiratory Rate Blood Pressure Pulse Oximetry 08/07/18 00:00 08/07/18 01:00 08/07/18 02:00 Temperature 98.2 F Pulse Rate 83 84 84 Respiratory Rate 20 Blood Pressure 110/58 L Pulse Oximetry 95 08/07/18 03:00 08/07/18 04:00 08/07/18 04:36 Temperature 98.2 F Pulse Rate 80 81 75 Respiratory Rate 20 Blood Pressure 118/85 Pulse Oximetry 95 08/07/18 05:00 08/07/18 05:31 08/07/18 07:00 Temperature Pulse Rate 86 79 80 Respiratory Rate Blood Pressure Pulse Oximetry 08/07/18 08:00 Temperature 99.1 F Pulse Rate 80 Respiratory Rate 18 Blood Pressure 121/68 Pulse Oximetry 93 L Intake & Output 08/06/18 08/07/18 08/07/18 18:59 06:59 18:59 Intake Total 720 / 720 420 / 420 Output Total 450 / 450 550 / 550 Balance 270 / 270 -130 / -130 Weight 84.7 kg Intake: Oral 720 / 720 420 / 420 Output: Urine 450 / 450 550 / 550 Other: # Voids 2 2 Exam: Left vein harvest wound is clean dry intact. Right groin Pravena dressing in place. Right calf wound is clean dry intact. Multiphasic pedal signals bilaterally. Assessment and Plan - Assessment (1) PAD (peripheral artery disease) Code(s): I73.9 - Peripheral vascular disease, unspecified Status: Acute - Plan POD#4 s/p redo R LE bypass (SFA-PT with rLGSV) Ambulate as tolerated. Continue with anticoagulation. Will check INR in a.m. Discharge Plannin-2 days
[2018-08-07] MEDS ORDERED: Sodium Chloride 0.9% 2 ML Flush PRN IV.FLUSH (16:09)
[2018-08-07] MEDS ORDERED: Sodium Chloride 0.9% 2 ML Flush BID IV.FLUSH SCH (21:00)
[2018-08-08 06:48] LABS: Hemoglobin 13.9 gm/dL (13.0-17.0); Mean Corpuscular HGB Conc 34.9 % (32.0-36.0); Mean Corpuscular Hemoglobin 36.3 pg (27.0-34.0); Mean Corpuscular Volume 104.2 fL (80.0-100.0); Mean Platelet Volume 8.3 fL (7.0-11.0); Platelet Count 264 th/mm3 (150-450); Red Blood Count 3.84 mil/mm3 (4.50-5.90); Red Cell Distribution Width 16.2 % (11.6-17.2); White Blood Count 7.9 th/mm3 (4.0-11.0)
[2018-08-08 07:06] LABS: Prothrombin Time 9.9 sec (9.8-11.6)
--- NOTE | 2018-08-08 08:53 | P.PNVS ---
Subjective Subjective/Hospital Course: Doing well pain is well tolerated Objective Vital Signs / I&O: Vital Signs 08/07/18 10:00 08/07/18 11:00 08/07/18 12:00 Temperature 99.0 F Pulse Rate 80 91 H 114 H Respiratory Rate 20 Blood Pressure 117/82 Pulse Oximetry 96 08/07/18 13:00 08/07/18 14:00 08/07/18 15:00 Temperature Pulse Rate 120 H 114 H 88 Respiratory Rate Blood Pressure Pulse Oximetry 08/07/18 15:55 08/07/18 16:00 08/07/18 17:00 Temperature 98.8 F Pulse Rate 89 87 103 H Respiratory Rate 18 Blood Pressure 106/67 Pulse Oximetry 96 08/07/18 18:00 08/07/18 19:00 08/07/18 19:40 Temperature 98.9 F Pulse Rate 97 H 87 91 H Respiratory Rate 18 Blood Pressure 97/63 L Pulse Oximetry 96 08/07/18 20:00 08/07/18 21:00 08/07/18 22:00 Temperature Pulse Rate 90 89 80 Respiratory Rate Blood Pressure Pulse Oximetry 08/07/18 23:00 08/07/18 23:30 08/08/18 00:00 Temperature 98.1 F Pulse Rate 82 87 90 Respiratory Rate 18 Blood Pressure 98/65 L Pulse Oximetry 94 L 08/08/18 01:00 EST 08/08/18 02:00 08/08/18 03:00 Temperature Pulse Rate 91 H 85 80 Respiratory Rate Blood Pressure Pulse Oximetry 08/08/18 04:00 08/08/18 05:00 08/08/18 06:00 Temperature 98.4 F Pulse Rate 88 92 H 81 Respiratory Rate 20 Blood Pressure 101/75 Pulse Oximetry 93 L Intake & Output 08/07/18 08/08/18 08/08/18 19:59 06:59 18:59 Intake Total Balance Weight Intake: Oral Other: # Voids Date of Last Bowel Movement # Bowel Movements Physical Exam: Bilateral lower extremity wounds clean dry intact. Multiphasic dorsalis pedis, posterior tibial signals bilaterally. Laboratory Results - last 24 hr 08/08/18 08/08/18 05:47 05:47 WBC 7.9 RBC 3.84 L Hgb 13.9 Hct 40.0 MCV 104.2 H MCH 36.3 H MCHC 34.9 RDW 16.2 Plt Count 264 MPV 8.3 PT 9.9 INR 1.0 Assessment and Plan - Assessment (1) PAD (peripheral artery disease) Code(s): I73.9 - Peripheral vascular disease, unspecified Status: Acute - Plan POD#5 s/p redo R LE bypass (SFA-PT with rLGSV) Patient INR is 1 on Lovenox and Coumadin. He has a total of 8 doses of Lovenox at home. We will discharge the patient home on Lovenox and Coumadin. And schedule for follow-up visit in 2 weeks with a duplex ultrasound. Discharge Plannin-2 days
--- NOTE | 2018-08-08 09:08 | P.DS ---
Discharge Summary - Admission Date 08/03/18 08:24 - Discharge Date 08/08/18 - Summary Brief History from admission: 53 yo male with h/o R LE bypass elsewhere, presents with rest pain, no tissue loss. Presents for re-do bypass, potentially with arm vein. Procedure: redo R LE bypass (SFA-PT with rL GSV) Significant Findings: Abnormal Lab Results 08/08/18 08/08/18 05:47 05:47 WBC 7.9 RBC 3.84 L Hgb 13.9 Hct 40.0 MCV 104.2 H MCH 36.3 H MCHC 34.9 RDW 16.2 Plt Count 264 MPV 8.3 PT 9.9 INR 1.0 Hospital Course: The patient underwent surgery successfully without any comp occasions. He was transferred to the surgical floor for postop care. He has an uncomplicated hospital course. He was tolerating diet and having bowel movements. He was ambulating with a walker without any difficulties. He was started on Lovenox and Coumadin and his INR was 1. The patient mentioned that he has 8 doses of therapeutic Lovenox at home that are given to him approximately 2 months ago and was never used. He was discharged home on Lovenox shots and Coumadin. He is instructed to check his INR on Thursday. He will be scheduled for follow-up visit in 2 weeks with a repeat duplex ultrasound and MIHIR. His condition discharge is stable. - Discharge Instructions Any questions or concerns: Call [facility] at [facility] [phone] Discharge Plan - Discharge Disposition Patient Disposition: Discharge Home - Discharge Condition Condition: Good - Discharge Order Discharge Orders: Discharge Order (Routine); Ordered 08/08/18 Ordered By: Tan Brewster - Physicians Team Primary Care Provider: Dami Price Attending Provider: Wallace Loco Other Providers: Francois Francis MD - Rxs /Orders / Referrals /Forms Prescriptions: New albuterol sulfate [Ventolin HFA] 90 mcg/actuation Hfa Aerosol Inhaler 2 puff INH Q4H PRN (Reason: Shortness Of Breath) RF: 0 enoxaparin [Lovenox] 80 mg/0.8 mL Syringe 80 mg subcut Q12HR RF: 0 ipratropium-albuterol 0.5 mg-3 mg(2.5 mg base)/3 mL Solution For Nebulization 1 amp NEB Q6HR NEB PRN (Reason: Wheezing) RF: 0 metoprolol tartrate 50 mg Tablet 50 mg PO BID RF: 0 oxycodone-acetaminophen [Percocet] 5-325 mg Tablet 2 tab PO Q4-6H PRN (Reason: Acute Pain Exception) Qty: 30 RF: 0 Continue albuterol sulfate 90 mcg/actuation Hfa Aerosol Inhaler 2 puff INHALATION Q4-6H PRN (Reason: Shortness Of Breath) atorvastatin 80 mg Tablet 80 mg PO DAILY cholecalciferol (vitamin D3) [Vitamin D3] 5,000 unit Tablet 1 tab PO DAILY cilostazol 50 mg Tablet 50 mg PO BID diazepam 10 mg Tablet 10 mg PO HS PRN (Reason: Insomnia) doxepin 75 mg Capsule 75 mg PO DAILY metoprolol tartrate 50 mg Tablet 50 mg PO BID pantoprazole 40 mg Tablet,Delayed Release (Dr/Ec) 40 mg PO DAILY potassium chloride 20 mEq Tablet Extended Release 20 meq PO DAILY warfarin 2 mg Tablet 2 mg PO DAILY Referrals: Dami Price [Primary Care Provider] - See Instructions - Discharge Instructions Patient Printed Instructions: Femoropopliteal Bypass (DC)
[2018-08-08] MEDS: Enoxaparin Inj 80 MG/0.8 ML Syringe SQ SCH (09:15)
[2018-08-08] MEDS: Metoprolol Tartrate 50 MG Tablet PO SCH (09:17)
[2018-08-08] MEDS: Senna/Docusate Sodium 8.6/50 MG Tablet PO SCH (09:18)
== END 2018-08-08 10:39 | disposition home or self-care (01) ==
LOC: HSDI 08:24 → HCPC 19:50
PROVIDERS: ADMIT Surgery; ATTEND Surgery